=== PATIENT | female | born 1975 | race Hispanic/Latino ===

== ENCOUNTER 2016-11-02 16:09 | Emergency (ER) | payer MEDICARE ==
--- NOTE | 2016-11-02 17:29 | Emergency Department Report ---
Entered by DARREN BARRAGAN, acting as scribe for PAWAN AGUILAR NP. Chief Complaint: Extremity Injury, Lower Stated Complaint: LT LEG/KNEE/ANKLE PAIN - HPI History of Present Illness: 41 y/o female, nontoxic, well developed, NAD, c/o left lower extremity swelling for the past week. Associated numbness and tingling of the area but denies subjective calf pain, fever, chills, CP, SOB, CARRANZA, dizziness, recent travel or long car rides. Patient states she twisted her left ankle while getting out of her car and fell on her left knee. - Exam Vital Signs: Vital Signs 11/02/16 16:57 Temperature 98 F Pulse Rate 71 Respiratory 18 Rate Blood Pressure 125/75 O2 Sat by Pulse 100 Oximetry Physical Exam: GENERAL: The patient is a well-developed, well-nourished male in no apparent distress. Patient is alert and oriented x3. EXTREMITIES: Without any cyanosis, clubbing, rash, lesions or edema. Peripheral pulses intact. Capillary refill less than 2 seconds. No warmth to touch. Patient denies subject calf pain but on Ksenia's sign she is positive for calf pain. Swelling to left LE. MSE screening note: Focused history and physical exam performed. Due to findings the following was ordered: BMP, CBC, HCG Qualitative, PTT, Serum test, PT, UA, Doppler ultrasound to left lower extremity, X-ray of ankle, X- ray of left knee ED Disposition for MSE Condition: Stable This documentation as recorded by the scribe,DARREN BARRAGAN,accurately reflects the service I personally performed and the decisions made by me,PAWAN AGUILAR, JJ.
[2016-11-02 17:46] LABS: Hematocrit 40.9 % (30.3-42.9); Hemoglobin 13.6 gm/dl (10.1-14.3); Mean Corpuscular HGB Conc 33 % (30-34); Mean Corpuscular Hemoglobin 32 pg (28-32); Mean Corpuscular Volume 96 fl (79-97); Platelet Count 230 K/mm3 (140-440); Red Blood Count 4.27 M/mm3 (3.65-5.03)
[2016-11-02 17:54] LABS: INR 1.01 (0.87-1.13); Partial Thromboplastin Time 24.7 Sec. (24.2-36.6)
[2016-11-02 17:58] LABS: Anion Gap 17 mmol/L; BUN/Creatinine Ratio 22.85; Blood Urea Nitrogen 16 mg/dL (7-17); Calcium 9.8 mg/dL (8.4-10.2); Carbon Dioxide 24 mmol/L (22-30); Chloride 100.6 mmol/L (98-107); Glucose 95 mg/dL (65-100); Sodium 138 mmol/L (137-145)
--- NOTE | 2016-11-03 07:41 | XRay Report ---
LEFT KNEE, 3 views: History: Left knee pain and swelling. The bony architecture is intact without evidence of fracture or dislocation. No significant soft tissue abnormality is seen. IMPRESSION: Left knee within normal limits.
--- NOTE | 2016-11-03 07:41 | XRay Report ---
LEFT ANKLE, 3 views: History: Left ankle pain and swelling. Bone mineralization is normal. No acute osseous abnormality or joint pathology is identified. The soft tissues are unremarkable. IMPRESSION: Normal study.
[2016-11-03 08:43] VITALS: BP 120/52
--- NOTE | 2016-11-03 09:42 | Emergency Department Report ---
ED Extremity Problem HPI - General Chief complaint: Extremity Injury, Lower Stated complaint: LT LEG/KNEE/ANKLE PAIN Time Seen by Provider: 11/03/16 09:04 Source: patient Mode of arrival: Ambulatory Limitations: No Limitations - History of Present Illness Initial comments: 41-year-old female presents to the emergency department complaining of left leg swelling and pain for the past one week. Patient states that she tripped and fell 1 week ago. She is unsure what she hit her leg on. Since that time she has been having swelling and pain to the left knee and left ankle. Pain is worse with weightbearing and ambulation. She has not taken any medication for this. There are no other complaints. MD Complaint: extremity pain, extremity swelling -: Gradual, week(s) (1) Location: left, lower extremity History of Same: No -: Yes myalgia, Yes arthralgia Radiation: none Severity scale (0 -10): 4 Quality: aching Consistency: intermittent Improves with: nothing Worsens with: weight bearing, walking Associated Symptoms: denies other symptoms - Related Data Previous Rx's Medication Instructions Recorded Last Taken Type Diclofenac Sodium 75 mg PO BID PRN #20 tablet. 11/03/16 Unknown Rx Allergies Allergy/AdvReac Type Severity Reaction Status Date / Time codeine AdvReac Vomiting Verified 07/03/15 14:35 ED Review of Systems ROS: Stated complaint: LT LEG/KNEE/ANKLE PAIN Other details as noted in HPI Comment: All other systems reviewed and negative Musculoskeletal: as per HPI, arthralgia, myalgia ED Past Medical Hx - Past Medical History Previous Medical History?: Yes Hx Psychiatric Treatment: Yes (PTSD; BIPOLAR; DEPRESSION) Hx Asthma: Yes - Surgical History Past Surgical History?: Yes Hx Appendectomy: Yes Additional Surgical History: RIGHT KNEE SURGERY. "STRETCHED ESOPHAGUS". RIGHT OVARY REMOVED - Family History Family history: no significant - Social History Smoking Status: Never Smoker Substance Use Type: None - Medications Home Medications: Home Medications Medication Instructions Recorded Confirmed Last Taken Type Diclofenac Sodium 75 mg PO BID PRN #20 tablet. 11/03/16 Unknown Rx ED Physical Exam - General Limitations: No Limitations General appearance: alert, in no apparent distress - Head Head exam: Present: atraumatic, normocephalic - Eye Eye exam: Present: normal appearance, PERRL, EOMI - ENT ENT exam: Present: normal exam, normal orophraynx, mucous membranes moist - Neck Neck exam: Present: normal inspection, full ROM. Absent: tenderness - Respiratory Respiratory exam: Present: normal lung sounds bilaterally. Absent: respiratory distress - Cardiovascular Cardiovascular Exam: Present: regular rate, normal rhythm, normal heart sounds - GI/Abdominal GI/Abdominal exam: Present: soft, normal bowel sounds. Absent: distended, tenderness - Extremities Exam Extremities exam: Present: normal inspection, full ROM, tenderness (mild tenderness to palpation over the right patella. Mild tenderness to palpation of the right medial and lateral malleolus. No deformity noted.) - Back Exam Back exam: Present: normal inspection, full ROM. Absent: tenderness - Neurological Exam Neurological exam: Present: alert, oriented X3. Absent: motor sensory deficit ED Course Vital Signs 11/02/16 11/03/16 11/03/16 16:57 05:14 08:41 Temperature 98 F 98.2 F 98.7 F Pulse Rate 71 76 67 Respiratory 18 14 20 Rate Blood Pressure 125/75 126/74 Blood Pressure 120/52 [Right] O2 Sat by Pulse 100 100 100 Oximetry ED Medical Decision Making - Lab Data Result diagrams: 11/02/16 17:26 11/02/16 17:26 - Radiology Data Radiology results: report reviewed X-rays of the left knee and left ankle reveal no acute injuries. Doppler ultrasound of the left lower extremity reveals no evidence of deep venous thrombosis. - Medical Decision Making Lab and imaging results reviewed and discussed with the patient. Patient will be discharged home at this time. - Differential Diagnosis contusion, strain, fracture, DVT Critical care attestation.: If time is entered above; I have spent that time in minutes in the direct care of this critically ill patient, excluding procedure time. ED Disposition Clinical Impression: Left ankle strain Qualifiers: Encounter type: initial encounter Qualified Code(s): S96.912A - Strain of unspecified muscle and tendon at ankle and foot level, left foot, initial encounter Contusion of left knee Qualifiers: Encounter type: initial encounter Qualified Code(s): S80.02XA - Contusion of left knee, initial encounter Disposition: DISCHARGED TO HOME OR SELFCARE Is pt being admited?: No Condition: Stable Instructions: Ankle Sprain (ED), Contusion in Adults (ED) Prescriptions: Diclofenac Sodium 75 mg PO BID PRN #20 tablet.dr DURAN Reason: Pain Referrals: PRIMARY CARE, [Primary Care Provider] - 3-5 Days Time of Disposition: 09:36
--- NOTE | 2016-11-04 08:25 | Vascular Lab Report ---
Left Lower Extremity Venous Duplex Study: Reason for Exam: Pain of the left lower extremity. Comments on the Right: A limited duplex study was done of the proximal veins of the right lower extremity. All veins visualized are freely compressible without evidence of internal echogenicity. Flow is spontaneous and phasic throughout. No evidence of acute or chronic thrombus is seen in any of the vessels visualized. Comments on the Left: All veins visualized are freely compressible without evidence of internal echogenicity. Flow is spontaneous and phasic throughout. No evidence of acute or chronic thrombus is seen in any of the vessels visualized. Impression: No evidence of acute or chronic deep venous thrombosis in the left lower extremity.
== END 2016-11-03 09:42 | disposition home or self-care (01) ==
LOC: ED 16:09
DX: S96.912A Strain of unspecified muscle and tendon at ankle and foot level, left foot, initial encounter (principal); S80.02XA Contusion of left knee, initial encounter; F31.9 Bipolar disorder, unspecified; F32.9 Major depressive disorder, single episode, unspecified; J45.909 Unspecified asthma, uncomplicated; W01.0XXA Fall on same level from slipping, tripping and stumbling without subsequent striking against object, initial encounter; Y93.9 Activity, unspecified; Y92.9 Unspecified place or not applicable; Y99.9 Unspecified external cause status
CPT/HCPCS: 36415; 80048; 84703; 85027; 85610; 85730; 99284

== ENCOUNTER 2017-03-07 20:07 | Emergency (ER) | payer MEDICARE ==
--- NOTE | 2017-03-08 01:42 | Emergency Department Report ---
ED General Adult HPI - General Chief complaint: Skin/Abscess/Foreign Body Stated complaint: TOE PAIN Source: patient Mode of arrival: Ambulatory Limitations: No Limitations - History of Present Illness Initial comments: This is a 42-year-old female nontoxic, well nourished in appearance, no acute signs of distress presents to the ED complaining of bilateral big toes discoloration with discomfort. He stated toes hurt because they're long but denies any trauma to the region. Patient stated she had similar symptoms and was diagnosed with fungus and received topical fungal cream that has resolved. Patient denies any numbness or tingling. Denies chest pain, shortness of breath , numbness, tingling, fever, chills, chest pain and shortness of breath. Patient states allergies to codeine. Past medical history includes asthma. MD Complaint: Onychomycosis -: Gradual, week(s) (2) Radiation: non-radiation Severity scale (0 -10): 5 Quality: aching Consistency: constant Improves with: none Worsens with: none Associated Symptoms: denies other symptoms. denies: confusion, cough, diaphoresis, fever/chills, headaches, loss of appetite, malaise, nausea/vomiting , rash, seizure, shortness of breath, syncope, weakness Treatments Prior to Arrival: none - Related Data Previous Rx's Medication Instructions Recorded Last Taken Type Diclofenac Sodium 75 mg PO BID PRN #20 tablet. 11/03/16 Unknown Rx Efinaconazole [Jublia] 8 ml TP DAILY #1 gui.w.appl 03/08/17 Unknown Rx Allergies Allergy/AdvReac Type Severity Reaction Status Date / Time codeine AdvReac Vomiting Verified 07/03/15 14:35 ED Review of Systems ROS: Stated complaint: TOE PAIN Other details as noted in HPI Constitutional: denies: chills, fever Eyes: denies: eye pain, eye discharge, vision change ENT: denies: ear pain, throat pain Respiratory: denies: cough, shortness of breath, wheezing Cardiovascular: denies: chest pain, palpitations Endocrine: no symptoms reported Gastrointestinal: denies: abdominal pain, nausea, diarrhea Genitourinary: denies: urgency, dysuria, discharge Musculoskeletal: denies: back pain, joint swelling, arthralgia Skin: denies: rash, lesions Neurological: denies: headache, weakness, paresthesias Psychiatric: denies: anxiety, depression Hematological/Lymphatic: denies: easy bleeding, easy bruising ED Past Medical Hx - Past Medical History Previous Medical History?: Yes Hx Psychiatric Treatment: Yes (PTSD; BIPOLAR; DEPRESSION) Hx Asthma: Yes - Surgical History Hx Appendectomy: Yes Additional Surgical History: RIGHT KNEE SURGERY. "STRETCHED ESOPHAGUS". RIGHT OVARY REMOVED - Social History Smoking Status: Never Smoker - Medications Home Medications: Home Medications Medication Instructions Recorded Confirmed Last Taken Type Diclofenac Sodium 75 mg PO BID PRN #20 tablet. 11/03/16 Unknown Rx Efinaconazole [Jublia] 8 ml TP DAILY #1 gui.w.appl 03/08/17 Unknown Rx ED Physical Exam - General Limitations: No Limitations General appearance: alert, in no apparent distress - Head Head exam: Present: atraumatic, normocephalic, normal inspection - Eye Eye exam: Present: normal appearance, PERRL, EOMI. Absent: scleral icterus, conjunctival injection, nystagmus, periorbital swelling, periorbital tenderness Pupils: Present: normal accommodation - ENT ENT exam: Present: normal exam, normal orophraynx, mucous membranes moist, TM's normal bilaterally, normal external ear exam - Neck Neck exam: Present: normal inspection, full ROM. Absent: tenderness, meningismus, lymphadenopathy, thyromegaly - Respiratory Respiratory exam: Present: normal lung sounds bilaterally. Absent: respiratory distress, wheezes, rales, rhonchi, stridor, chest wall tenderness, accessory muscle use, decreased breath sounds, prolonged expiratory - Cardiovascular Cardiovascular Exam: Present: regular rate, normal rhythm, normal heart sounds. Absent: systolic murmur, diastolic murmur, rubs, gallop - GI/Abdominal GI/Abdominal exam: Present: soft, normal bowel sounds. Absent: distended, tenderness, guarding, rebound, rigid, diminished bowel sounds - Rectal Rectal exam: Present: deferred - Extremities Exam Extremities exam: Present: normal inspection, full ROM, normal capillary refill , other (bilatearl big toes are yellow colored. No signs of abscess or swelling. ). Absent: tenderness, pedal edema, joint swelling, calf tenderness - Back Exam Back exam: Present: normal inspection, full ROM. Absent: tenderness, CVA tenderness (R), CVA tenderness (L), muscle spasm, paraspinal tenderness, vertebral tenderness, rash noted - Neurological Exam Neurological exam: Present: alert, oriented X3, CN II-XII intact, normal gait, reflexes normal - Psychiatric Psychiatric exam: Present: normal affect, normal mood - Skin Skin exam: Present: warm, dry, intact, normal color. Absent: rash ED Course Vital Signs 03/07/17 21:53 Temperature 97.4 F L Pulse Rate 68 Respiratory 20 Rate Blood Pressure 120/56 O2 Sat by Pulse 97 Oximetry - Reevaluation(s) Reevaluation #1: 03/08/17 01:42 Patient is speaking in full sentences with no signs of distress noted. Critical care attestation.: If time is entered above; I have spent that time in minutes in the direct care of this critically ill patient, excluding procedure time. ED Disposition Clinical Impression: Onychomycosis Disposition: DC- TO HOME OR SELFCARE Is pt being admited?: No Does the pt Need Aspirin: No Condition: Stable Additional Instructions: Follow-up with a primary care doctor/music internship in 3-5 days or if symptoms worsen and continue return to the emergency room as soon as possible. Prescriptions: Efinaconazole [Jublia] 8 ml TP DAILY #1 gui.w.appl Referrals: PRIMARY CARE, [Primary Care Provider] - 3-5 Days OLIVIA HALL MD [Staff Physician] - 3-5 Days [facility] [Outside] - 3-5 Days [facility] [Outside] - 3-5 Days Forms: Work/School Release Form(ED)
[2017-03-08 05:04] VITALS: BP 114/55
== END 2017-03-08 02:20 | disposition home or self-care (01) ==
LOC: ED 20:07
DX: B35.1 Tinea unguium (principal); J45.909 Unspecified asthma, uncomplicated; F31.9 Bipolar disorder, unspecified; Z88.5 Allergy status to narcotic agent
CPT/HCPCS: 99282

== ENCOUNTER 2017-03-15 10:16 | Emergency (ER) | payer MEDICARE ==
--- NOTE | 2017-03-15 10:24 | Emergency Department Report ---
Stated Complaint: I AM IN MY LEG ANKLE Time Seen by Provider: 03/15/17 10:20 - HPI History of Present Illness: Pt states she was going up stairs in apartment when she tripped. PT States she landed on her L knee and twisted her L ankle - ROS Review of Systems: - loc + ankle edema + gait change - Exam Physical Exam: PT is ambulatory while in triage PT c/o lateral left ankle pain, mild edema noted MSE screening note: Focused history and physical exam performed. Due to findings the following was ordered: xr ED Disposition for MSE Condition: Stable
[2017-03-15 10:25] VITALS: BP 107/75
--- NOTE | 2017-03-15 11:05 | XRay Report ---
Left ankle: Pain, fall. There is mild swelling around the ankle. There is no effusion, fracture, or displacement. The bones are well-mineralized. Impression: Nonspecific swelling. LEFT KNEE: Trauma, pain. The bony architecture is intact without evidence of fracture or dislocation. No significant soft tissue abnormality is seen. IMPRESSION: Normal left knee.
--- NOTE | 2017-03-15 13:46 | Emergency Department Report ---
ED Lower Extremity HPI - General Chief Complaint: Fall Stated Complaint: I AM IN MY LEG ANKLE Time Seen by Provider: 03/15/17 10:20 Source: patient Mode of arrival: Ambulatory Limitations: No Limitations - History of Present Illness Initial Comments: 42-year-old female past medical history bipolar, depression states that she slipped while walking up steps yesterday in her home. Denies losing any consciousness denies rolling down steps. States that she inverted slightly on her left ankle and fell onto her left knee. States she is able to walk but it is very uncomfortable particularly in her left lateral ankle. Patient denies any lacerations denies losing consciousness is fully lucid awake alert and oriented 3 not in acute distress. Denies chest pain palpitations shortness of breath or abdominal pain. Is calm and sitting on examination bed comfortably. States she has someone to pick her up. States she is allergic to narcotics. MD Complaint: ankle injury (left ), foot injury (left ) Onset/Timin -: days(s) Injury: Ankle: Left, Foot: Left Type of Injury: inversion Place: home Severity: moderate Severity scale (0 -10): 5 Improves With: immobilization Worsens With: weight bearing, movement Context: fall Associated Symptoms: able to partially bear weight (left ankle pain w/ walking) - Related Data Previous Rx's Medication Instructions Recorded Last Taken Type Diclofenac Sodium 75 mg PO BID PRN #20 tablet. 11/03/16 Unknown Rx Efinaconazole [Jublia] 8 ml TP DAILY #1 gui.w.appl 03/08/17 Unknown Rx Naproxen [Naprosyn TAB] 500 mg PO BID PRN #25 tablet 03/15/17 Unknown Rx Allergies Allergy/AdvReac Type Severity Reaction Status Date / Time codeine AdvReac Vomiting Verified 07/03/15 14:35 ED Review of Systems ROS: Stated complaint: I AM IN MY LEG ANKLE Other details as noted in HPI Constitutional: denies: chills, fever Eyes: denies: eye pain, eye discharge, vision change ENT: denies: ear pain, throat pain Respiratory: denies: cough, shortness of breath, wheezing Cardiovascular: denies: chest pain, palpitations Endocrine: no symptoms reported Gastrointestinal: denies: abdominal pain, nausea, diarrhea Genitourinary: denies: urgency, dysuria, discharge Musculoskeletal: as per HPI, arthralgia. denies: back pain, joint swelling Skin: denies: rash, lesions Neurological: denies: headache, weakness, paresthesias Psychiatric: denies: anxiety, depression Hematological/Lymphatic: denies: easy bleeding, easy bruising ED Past Medical Hx - Past Medical History Previous Medical History?: Yes Hx Psychiatric Treatment: Yes (PTSD; BIPOLAR; DEPRESSION) Hx Asthma: Yes - Surgical History Past Surgical History?: Yes Hx Appendectomy: Yes Additional Surgical History: RIGHT KNEE SURGERY. "STRETCHED ESOPHAGUS". RIGHT OVARY REMOVED - Social History Smoking Status: Never Smoker Substance Use Type: Prescribed - Medications Home Medications: Home Medications Medication Instructions Recorded Confirmed Last Taken Type Diclofenac Sodium 75 mg PO BID PRN #20 tablet.dr 11/03/16 Unknown Rx Efinaconazole [Jublia] 8 ml TP DAILY #1 gui.w.appl 03/08/17 Unknown Rx Naproxen [Naprosyn TAB] 500 mg PO BID PRN #25 tablet 03/15/17 Unknown Rx ED Physical Exam - General Limitations: No Limitations General appearance: alert, in no apparent distress - Head Head exam: Present: atraumatic, normocephalic - Eye Eye exam: Present: normal appearance, PERRL, EOMI - ENT ENT exam: Present: mucous membranes moist - Neck Neck exam: Present: normal inspection, full ROM - Respiratory Respiratory exam: Present: normal lung sounds bilaterally. Absent: respiratory distress - Cardiovascular Cardiovascular Exam: Present: regular rate, normal rhythm. Absent: systolic murmur, diastolic murmur, rubs, gallop - GI/Abdominal GI/Abdominal exam: Present: soft, normal bowel sounds - Extremities Exam Extremities exam: Present: normal inspection - Expanded Lower Extremity Exam Left Upper Leg exam: Present: normal inspection, full ROM Knee exam: Present: normal inspection, full ROM Lower Leg exam: Present: normal inspection, full ROM Ankle exam: Present: tenderness, swelling Foot/Toe exam: Present: normal inspection, full ROM Neuro vascular tendon exam: Present: no vascular compromise (distal pulses intact DP and PT pulses) 1 - left ankel pain at lateral malleolus - Back Exam Back exam: Present: normal inspection - Neurological Exam Neurological exam: Present: alert, oriented X3 - Psychiatric Psychiatric exam: Present: normal affect, normal mood - Skin Skin exam: Present: warm, dry, intact, normal color. Absent: rash ED Course Vital Signs 03/15/17 10:21 Temperature 97.6 F Pulse Rate 66 Respiratory 18 Rate Blood Pressure 107/75 O2 Sat by Pulse 96 Oximetry ED Lower Extremity MDM - Medical Decision Making A/P: Left ankle pain, left knee pain, left ankle sprain, left knee sprain 1-x-ray show no fractures 2-crutches, nonweightbearing for now, Jerry wrap, orthopedic shoe 3-naproxen when necessary 4- follow up with primary doctor and orthopedics, distal extremity is neurovascularly intact distal posterior tibial dorsalis pedis and popliteal pulses intact distal sensation is intact no lacerations and no fractures patient sustained no head injury and denies any neck pain or injury to any other body part is fully lucid awake alert and oriented 3 Critical care attestation.: If time is entered above; I have spent that time in minutes in the direct care of this critically ill patient, excluding procedure time. ED Disposition Clinical Impression: Left knee sprain Qualifiers: Encounter type: initial encounter Involved ligament of knee: other ligament Qualified Code(s): S83.8X2A - Sprain of other specified parts of left knee, initial encounter Left ankle sprain Qualifiers: Encounter type: initial encounter Involved ligament of ankle: tibiofibular ligament Qualified Code(s): S93.432A - Sprain of tibiofibular ligament of left ankle, initial encounter Disposition: TO HOME OR SELFCARE Is pt being admited?: No Does the pt Need Aspirin: No Condition: Stable Instructions: Ankle Sprain (ED), Ankle Stirrup Splint (ED), Crutch Instructions (ED), RICE Therapy (ED) Prescriptions: Naproxen [Naprosyn TAB] 500 mg PO BID PRN #25 tablet PRN Reason: Pain Referrals: [facility] [Provider Group] - 3-5 Days THIAGO FERGUSON MD [Staff Physician] - 3-5 Days Forms: Work/School Release Form(ED) Time of Disposition: 13:46
[2017-03-15] MEDS ORDERED: MOTRIN PO ONE (13:47)
== END 2017-03-15 13:54 | disposition home or self-care (01) ==
LOC: ED 10:16
DX: S83.8X2A Sprain of other specified parts of left knee, initial encounter (principal); S93.432A Sprain of tibiofibular ligament of left ankle, initial encounter; W01.0XXA Fall on same level from slipping, tripping and stumbling without subsequent striking against object, initial encounter; Y93.9 Activity, unspecified; Y92.89 Other specified places as the place of occurrence of the external cause; Y99.9 Unspecified external cause status

== ENCOUNTER 2017-03-25 12:05 | Emergency (ER) | payer MEDICARE ==
[2017-03-26] MEDS ORDERED: FIORICET PO ONE (03:36)
--- NOTE | 2017-03-26 03:41 | Emergency Department Report ---
ED General Adult HPI - General Chief complaint: Syncope Stated complaint: FAINTING EPISODE Time Seen by Provider: 03/26/17 03:33 Source: patient, EMS Mode of arrival: Stretcher Limitations: No Limitations - History of Present Illness Initial comments: 42-year-old female past medical history PTSD and bipolar who presents status post syncope patient was very hot and walking outside in her crutches she felt lightheaded and sat down. She did not lose consciousness she felt better after drinking some water. However since she was at [facility] she was sent to the ER for evaluation. Patient states that she stumbled to the ground and then she was having some ankle pain in her left ankle - Related Data Previous Rx's Medication Instructions Recorded Last Taken Type Diclofenac Sodium 75 mg PO BID PRN #20 tablet. 11/03/16 Unknown Rx Efinaconazole [Jublia] 8 ml TP DAILY #1 gui.w.appl 03/08/17 Unknown Rx Naproxen [Naprosyn TAB] 500 mg PO BID PRN #25 tablet 03/15/17 Unknown Rx Butalb/Acetamin/Caff 50-325-40 1 tab PO Q6HR PRN #17 tab 03/26/17 Unknown Rx [Fioricet] Allergies Allergy/AdvReac Type Severity Reaction Status Date / Time codeine AdvReac Vomiting Verified 07/03/15 14:35 ED Review of Systems ROS: Stated complaint: FAINTING EPISODE Other details as noted in HPI Constitutional: denies: chills, fever Eyes: denies: eye pain, eye discharge, vision change ENT: denies: ear pain, throat pain Respiratory: denies: cough, shortness of breath, wheezing Cardiovascular: syncope Endocrine: no symptoms reported Gastrointestinal: denies: abdominal pain, nausea, diarrhea Genitourinary: denies: urgency, dysuria, discharge Musculoskeletal: other (ankle pain). denies: back pain, joint swelling, arthralgia Skin: denies: rash, lesions Neurological: denies: headache, weakness, paresthesias Psychiatric: denies: anxiety, depression Hematological/Lymphatic: denies: easy bleeding, easy bruising ED Past Medical Hx - Past Medical History Hx Psychiatric Treatment: Yes (PTSD; BIPOLAR; DEPRESSION) Hx Asthma: Yes - Surgical History Hx Appendectomy: Yes Additional Surgical History: RIGHT KNEE SURGERY. "STRETCHED ESOPHAGUS". RIGHT OVARY REMOVED - Social History Smoking Status: Never Smoker Substance Use Type: None - Medications Home Medications: Home Medications Medication Instructions Recorded Confirmed Last Taken Type Diclofenac Sodium 75 mg PO BID PRN #20 tablet. 11/03/16 Unknown Rx Efinaconazole [Jublia] 8 ml TP DAILY #1 gui.w.appl 03/08/17 Unknown Rx Naproxen [Naprosyn TAB] 500 mg PO BID PRN #25 tablet 03/15/17 Unknown Rx Butalb/Acetamin/Caff 50-325-40 1 tab PO Q6HR PRN #17 tab 03/26/17 Unknown Rx [Fioricet] ED Physical Exam - General Limitations: No Limitations General appearance: alert, in no apparent distress - Head Head exam: Present: atraumatic, normocephalic - Eye Eye exam: Present: normal appearance - ENT ENT exam: Present: mucous membranes moist - Neck Neck exam: Present: normal inspection - Respiratory Respiratory exam: Present: normal lung sounds bilaterally. Absent: respiratory distress - Cardiovascular Cardiovascular Exam: Present: regular rate, normal rhythm. Absent: systolic murmur, diastolic murmur, rubs, gallop - GI/Abdominal GI/Abdominal exam: Present: soft, normal bowel sounds - Extremities Exam Extremities exam: Present: tenderness (left ankle tenderness ) - Back Exam Back exam: Present: normal inspection - Neurological Exam Neurological exam: Present: alert, oriented X3 - Psychiatric Psychiatric exam: Present: normal affect, normal mood - Skin Skin exam: Present: warm, dry, intact, normal color. Absent: rash ED Course Vital Signs 03/25/17 03/26/17 03/26/17 14:32 01:19 03:41 Temperature 97.8 F 97.9 F 97.5 F L Pulse Rate 62 54 L 58 L Respiratory 16 18 Rate Blood Pressure 113/62 127/65 Blood Pressure 127/68 [Left] O2 Sat by Pulse 98 100 99 Oximetry ED Medical Decision Making - EKG Data -: EKG Interpreted by Me - EKG Data 03/26/17 04:48 EKG shows normal sinus rhythm borderline MT interval no T-wave inversion or significant ST segment elevation. - Radiology Data Radiology results: image reviewed X-ray ankle: Shows no acute osseous injury - Medical Decision Making Chief medical diagnosis: Syncope secondary to dehydration Differential medical diagnosis: Arrhythmia, vasovagal, tension headache I'll get EKG and I will get ankle xray and oral analgesic pain medication . X-ray shows no acute fracture patient does not need lab work and is feeling better after all oral analgesic pain medication. I will send the patient home. Critical care attestation.: If time is entered above; I have spent that time in minutes in the direct care of this critically ill patient, excluding procedure time. ED Disposition Clinical Impression: Vasovagal syncope, Tension headache Disposition: TO HOME OR SELFCARE Is pt being admited?: No Does the pt Need Aspirin: No Condition: Stable Instructions: Syncope (ED) Prescriptions: Butalb/Acetamin/Caff 50-325-40 [Fioricet] 1 tab PO Q6HR PRN #17 tab PRN Reason: Headache Referrals: PRIMARY CARE, [Primary Care Provider] - 3-5 Days
[2017-03-26] MEDS ORDERED: NAPROSYN PO ONE (04:00)
[2017-03-26 05:31] VITALS: BP 132/73
--- NOTE | 2017-03-26 09:41 | XRay Report ---
XRAY LEFT ANKLE 2 VIEWS: 03/25/17 12:05:00 CLINICAL: Fall and twisted ankle. Pain. COMPARISON: 03/15/17 FINDINGS: The ankle mortise is intact. No fracture or dislocation. Mild soft tissue swelling which is slightly greater over the medial malleolus. No foreign body or soft tissue air. IMPRESSION: Soft tissue swelling without significant change compared to the prior exam.
== END 2017-03-26 05:29 | disposition home or self-care (01) ==
LOC: ED 12:05
DX: R55 Syncope and collapse (principal); G44.209 Tension-type headache, unspecified, not intractable; F32.9 Major depressive disorder, single episode, unspecified; F31.9 Bipolar disorder, unspecified; J45.909 Unspecified asthma, uncomplicated; Z88.5 Allergy status to narcotic agent
CPT/HCPCS: 93005; 93010

== ENCOUNTER 2017-03-29 09:15 | Emergency (ER) | payer MEDICARE ==
--- NOTE | 2017-03-29 11:14 | Emergency Department Report ---
Upper Extremity - HPI Chief Complaint: Extremity Injury, Upper Stated Complaint: RIGHT ARM PAIN Time Seen by Provider: 03/29/17 10:36 Upper Extremity: Right Shoulder (pain after fall 4 days ago), Right Arm (pain), Right Forearm (pain) Occurred When: 4 Days Mechanism: Fall Severity: moderate (6 out of 10) Symptoms: Yes Pain with Movement (patient here reports fall with pain to shoulder radiated down her forearm), Yes Limited Range of Movement (right shoulder), No Deformity, No Numbness, No Weakness, No Swelling, No Bruising/ Ecchymosis, No Laceration or Abrasion Other History: She was here on 03/15/2017,03/26/2017 after she said that she passed out and fell. She is now complaining of right shoulder pain which she states she did not complain of when she was here and the pain is getting worse and she has limited range of motion to her right shoulderand pain is radiating down her right arm and forearm. Pt had x-ray of knee and ankle previously which were negative findings. ED Review of Systems ROS: Stated complaint: RIGHT ARM PAIN Other details as noted in HPI Comment: All other systems reviewed and negative Constitutional: no symptoms reported Respiratory: no symptoms reported Cardiovascular: denies: chest pain, palpitations, edema, syncope Gastrointestinal: denies: abdominal pain, nausea, vomiting, hematochezia Musculoskeletal: arthralgia. denies: back pain, joint swelling, myalgia Skin: denies: rash Neurological: denies: headache, weakness, numbness, paresthesias, confusion, abnormal gait, vertigo ED Past Medical Hx - Past Medical History Previous Medical History?: Yes Hx Psychiatric Treatment: Yes (PTSD; BIPOLAR; DEPRESSION) Hx Asthma: Yes Additional medical history: Chronic pain - Surgical History Past Surgical History?: Yes Hx Appendectomy: Yes Additional Surgical History: RIGHT KNEE SURGERY. "STRETCHED ESOPHAGUS". RIGHT OVARY REMOVED - Family History Family history: no significant - Social History Smoking Status: Never Smoker Substance Use Type: None - Medications Home Medications: Home Medications Medication Instructions Recorded Confirmed Last Taken Type Diclofenac Sodium 75 mg PO BID PRN #20 tablet. 11/03/16 Unknown Rx Efinaconazole [Jublia] 8 ml TP DAILY #1 gui.w.appl 03/08/17 Unknown Rx Butalb/Acetamin/Caff 50-325-40 1 tab PO Q6HR PRN #17 tab 03/26/17 Unknown Rx [Fioricet] Naproxen [Naprosyn TAB] 500 mg PO BID PRN #12 tablet 03/29/17 Unknown Rx Upper Extremity Exam - Exam General: Vital signs noted. No distress. Alert and acting appropriately. This is a 42-year-old female well-nourished well-developed in no acute distress Head and Torso: No HEENT Abnormality, No Neck Tenderness, No Chest/Lungs Abnormality, No Abdominal Tenderness, No Back Tenderness Shoulder Exam: Yes Normal Range of Motion in Shoulder (A showed full range of motion to her right shoulder but she said is speaking full with movement.), No Shoulder Tenderness, No Clavicle Tenderness, No Shoulder Deformity, No AC Joint Tenderness Arm Exam: No Arm/Humerus Tenderness, No Arm Deformity Elbow: Yes Normal Range of Motion in Elbow, No Elbow Tenderness, No Elbow Deformity Forearm: No Forearm Tenderness, No Forearm Deformity, No Pain with Pronation, No Pain with Supination Wrist: Yes Normal ROM in Wrist, No Wrist Tenderness, No Wrist Deformity, No Snuffbox Tenderness, No Pain with Axial Thumb Compression Hand: Yes Normal ROM in Digit(s), No Hand Tenderness, No Hand Deformity, No Digit Tenderness, No Digit(s) Deformity, No Tendon Dysfunction CMS Exam: Yes Normal Distal Pulses, Yes Normal Capillary Refill, Yes Normal Distal Sensation, No Broken Skin ED Course Vital Signs 03/29/17 09:24 Temperature 98.1 F Pulse Rate 67 Respiratory 16 Rate Blood Pressure 108/74 O2 Sat by Pulse 98 Oximetry - Reevaluation(s) Reevaluation #1: 03/29/17 13:14 Patient was given Toradol 60 mg IM in emergency room for pain. ED Medical Decision Making - Radiology Data Radiology results: report reviewed X-ray of right shoulder to include humerus reveal no acute bony abnormalities or soft tissue swelling Story of right forearm to include wrist and elbow revealed no abnormality or soft tissue swelling. - Medical Decision Making ED course: Pt here complaining of right shoulder pain that radiated down her arm and forearm. She's been here 2 times prior for similar incident involving her ankle and her knee. Patient has a history of chronic pain. She has has a history of bipolar disorder, depression and PTSD. [facility] Discussed with her x-ray results and I told her that she will need to follow up with orthopedic for chronic pain in her joints. Patient was given Toradol 60 mg IM for pain and emergency room. She discharged home with prescription for naproxen and to follow-up with orthopedic doctor now and then in 2-3 days and I also gave her a primary care doctor Dr. Jackson to follow up for other medical problems. She was undescended discharge instruction and discharged home in stable condition. Critical care attestation.: If time is entered above; I have spent that time in minutes in the direct care of this critically ill patient, excluding procedure time. ED Disposition Clinical Impression: Arthralgia of multiple sites, Radiculopathy affecting upper extremity Disposition: - TO HOME OR SELFCARE Is pt being admited?: No Does the pt Need Aspirin: No Condition: Stable Instructions: Arthralgia (ED), Chronic Pain (ED) Additional Instructions: Please follow up with orthopedic doctor as instructed I assigned Dr.Roger Miguel as your primary care physician please call and schedule a visit for physical exam. He can take naproxen as needed for pain You may have rotator cuff injury so please follow up with orthopedic doctor because there is a possibility that he could need MRI. Prescriptions: Naproxen [Naprosyn TAB] 500 mg PO BID PRN #12 tablet PRN Reason: Pain Referrals: LUIZA MIGUEL MD [Staff Physician] - 04/04/17 THIAGO FERGUSON MD [Staff Physician] - 2-3 Days Forms: Work/School Release Form(ED)
[2017-03-29] MEDS: TORADOL IM ONE (11:21)
--- NOTE | 2017-03-29 11:51 | XRay Report ---
RIGHT FOREARM: History: Pain after fall. AP and lateral views of the forearm demonstrate normal mineralization and contours for this patient's age. No destructive changes are noted and the adjacent soft tissues are normal. IMPRESSION: Normal right forearm.
--- NOTE | 2017-03-29 11:51 | XRay Report ---
RIGHT SHOULDER: History: Pain after fall. Routine views demonstrate normal bony and soft tissue structures with normal joint alignment of the shoulder. IMPRESSION: Normal study.
[2017-03-29 13:32] VITALS: BP 111/63
== END 2017-03-29 13:32 | disposition home or self-care (01) ==
LOC: ED 09:15
DX: M25.511 Pain in right shoulder (principal); M54.10 Radiculopathy, site unspecified; J45.909 Unspecified asthma, uncomplicated; G89.29 Other chronic pain; Z98.890 Other specified postprocedural states
CPT/HCPCS: 73030; 73090; 96372; 99283; J1885

== ENCOUNTER 2017-04-30 10:26 | Emergency (ER) | payer MEDICARE ==
[2017-04-30 10:57] VITALS: BP 114/73
--- NOTE | 2017-04-30 11:30 | XRay Report ---
LEFT ANKLE, 3 views: History: left ankle pain. Bone mineralization is normal. No acute osseous abnormality or joint pathology is identified. The soft tissues are unremarkable. IMPRESSION: Normal study.
--- NOTE | 2017-04-30 12:09 | Emergency Department Report ---
ED Lower Extremity HPI - General Chief Complaint: Extremity Injury, Lower Stated Complaint: LEFT ANKLE PAIN Time Seen by Provider: 04/30/17 11:59 Source: patient Mode of arrival: Ambulatory Limitations: No Limitations - History of Present Illness Initial Comments: Pt reports she twisted her L ankle the other day and it still hurts. Pt noted to be wearing aircast. No numbness. MD Complaint: ankle injury -: Sudden, days(s) (3) Injury: Ankle: Left Type of Injury: inversion Place: street/outdoors Severity: moderate Severity scale (0 -10): 5 Improves With: immobilization Worsens With: weight bearing Context: other Associated Symptoms: swelling, ambulatory. denies: numbness, tingling - Related Data Previous Rx's Medication Instructions Recorded Last Taken Type Efinaconazole [Jublia] 8 ml TP DAILY #1 gui.w.appl 03/08/17 Unknown Rx Butalb/Acetamin/Caff 50-325-40 1 tab PO Q6HR PRN #17 tab 03/26/17 Unknown Rx [Fioricet] Naproxen [Naprosyn TAB] 500 mg PO BID PRN #20 tablet 04/30/17 Unknown Rx Allergies Allergy/AdvReac Type Severity Reaction Status Date / Time codeine AdvReac Intermediate Vomiting Verified 04/30/17 10:48 ED Review of Systems ROS: Stated complaint: LEFT ANKLE PAIN Other details as noted in HPI Comment: All other systems reviewed and negative Constitutional: denies: chills, fever Eyes: denies: eye pain, eye discharge, vision change ENT: denies: ear pain, throat pain Respiratory: denies: cough, shortness of breath, wheezing Cardiovascular: denies: chest pain, palpitations Endocrine: no symptoms reported Gastrointestinal: denies: abdominal pain, nausea, diarrhea Genitourinary: denies: urgency, dysuria, discharge Musculoskeletal: as per HPI, arthralgia. denies: back pain, joint swelling Skin: denies: rash, lesions Neurological: denies: headache, weakness, paresthesias Psychiatric: denies: anxiety, depression Hematological/Lymphatic: denies: easy bleeding, easy bruising ED Past Medical Hx - Past Medical History Previous Medical History?: Yes Hx Psychiatric Treatment: Yes (PTSD; BIPOLAR; DEPRESSION) Hx Asthma: Yes Additional medical history: Chronic pain - Surgical History Past Surgical History?: Yes Hx Appendectomy: Yes Additional Surgical History: RIGHT KNEE SURGERY. "STRETCHED ESOPHAGUS". RIGHT OVARY REMOVED - Social History Smoking Status: Never Smoker Substance Use Type: None - Medications Home Medications: Home Medications Medication Instructions Recorded Confirmed Last Taken Type Efinaconazole [Jublia] 8 ml TP DAILY #1 gui.w.appl 03/08/17 Unknown Rx Butalb/Acetamin/Caff 50-325-40 1 tab PO Q6HR PRN #17 tab 03/26/17 Unknown Rx [Fioricet] Naproxen [Naprosyn TAB] 500 mg PO BID PRN #20 tablet 04/30/17 Unknown Rx ED Physical Exam - General Limitations: No Limitations General appearance: alert, in no apparent distress - Head Head exam: Present: atraumatic, normocephalic - Eye Eye exam: Present: normal appearance - ENT ENT exam: Present: mucous membranes moist - Neck Neck exam: Present: normal inspection - Respiratory Respiratory exam: Present: normal lung sounds bilaterally. Absent: respiratory distress - Cardiovascular Cardiovascular Exam: Present: regular rate, normal rhythm. Absent: systolic murmur, diastolic murmur, rubs, gallop - GI/Abdominal GI/Abdominal exam: Present: soft, normal bowel sounds - Extremities Exam Extremities exam: Present: normal inspection, full ROM, tenderness, normal capillary refill, other (essentially normal exam of the L ankle with CMS intact. L foot, lower leg normal. ). Absent: joint swelling - Back Exam Back exam: Present: normal inspection - Neurological Exam Neurological exam: Present: alert, oriented X3 - Psychiatric Psychiatric exam: Present: normal affect, normal mood - Skin Skin exam: Present: warm, dry, intact, normal color. Absent: rash ED Course Vital Signs 04/30/17 10:48 Temperature 98.3 F Pulse Rate 71 Respiratory 18 Rate Blood Pressure 114/73 O2 Sat by Pulse 97 Oximetry - Reevaluation(s) Reevaluation #1: 04/30/17 12:07 Pt in NAD and stable for d/c. ED Lower Extremity MDM - Radiology Data Radiology results: report reviewed naf - Medical Decision Making Pt with mild sprain. Follow with PCP/ortho and use aircast. - Differential Diagnosis sprain, fx, drug seeking Critical care attestation.: If time is entered above; I have spent that time in minutes in the direct care of this critically ill patient, excluding procedure time. ED Disposition Clinical Impression: Ankle sprain Qualifiers: Encounter type: initial encounter Involved ligament of ankle: unspecified ligament Laterality: left Qualified Code(s): S93.402A - Sprain of unspecified ligament of left ankle, initial encounter Disposition: TO HOME OR SELFCARE Is pt being admited?: No Condition: Good Instructions: Ankle Sprain (ED) Prescriptions: Naproxen [Naprosyn TAB] 500 mg PO BID PRN #20 tablet PRN Reason: Pain Referrals: PRIMARY CAREMD [Primary Care Provider] - 3-5 Days THIAGO FERGUSON MD [Staff Physician] - 3-5 Days Time of Disposition: 12:08
== END 2017-04-30 12:17 | disposition home or self-care (01) ==
LOC: ED 10:26
DX: S93.402A Sprain of unspecified ligament of left ankle, initial encounter (principal); Z88.6 Allergy status to analgesic agent; X58.XXXA Exposure to other specified factors, initial encounter; Y93.89 Activity, other specified; Y92.89 Other specified places as the place of occurrence of the external cause; Y99.8 Other external cause status
CPT/HCPCS: 99284

== ENCOUNTER 2017-07-27 21:50 | Emergency (ER) | payer MEDICARE | END 2017-07-27 22:16 | disposition left against medical advice (07) | LOC: ED 21:50 | DX: H92.09 Otalgia, unspecified ear (principal); Z53.21 Procedure and treatment not carried out due to patient leaving prior to being seen by health care provider ==

== ENCOUNTER 2017-07-30 14:57 | Emergency (ER) | payer MEDICARE ==
[2017-07-30 15:04] VITALS: BP 108/43
[2017-07-30] MEDS ORDERED: MOTRIN PO ONE (15:40)
[2017-07-30] MEDS ORDERED: ULTRAM PO ONE (15:40)
--- NOTE | 2017-07-30 15:40 | Emergency Department Report ---
Blank Doc - Documentation Documentation: Patient is a 42-year-old female who was running yesterday and she tripped in a hole and has injured her left ankle and left knee. Patient has difficulty putting any weight on this leg. Patient's brief physical exam has not is deformity however there is anterior pain in the left knee as well as bilateral ankle pain with swelling. X-rays of be taken of both and patient will be reassessed
--- NOTE | 2017-07-30 16:41 | Emergency Department Report ---
ED Lower Extremity HPI - General Chief Complaint: Extremity Injury, Lower Stated Complaint: FALL Time Seen by Provider: 07/30/17 15:21 Source: patient Mode of arrival: Wheelchair Limitations: No Limitations - History of Present Illness MD Complaint: knee injury, ankle injury -: This afternoon - Related Data Previous Rx's Medication Instructions Recorded Last Taken Type Efinaconazole [Jublia] 8 ml TP DAILY #1 gui.w.appl 03/08/17 Unknown Rx Butalb/Acetamin/Caff 50-325-40 1 tab PO Q6HR PRN #17 tab 03/26/17 Unknown Rx [Fioricet] Naproxen [Naprosyn TAB] 500 mg PO BID PRN #20 tablet 04/30/17 Unknown Rx Ibuprofen [Motrin] 800 mg PO Q8HR PRN #30 tablet 07/30/17 Unknown Rx traMADol [Ultram 50 MG tab] 50 mg PO Q6HR PRN #6 tablet 07/30/17 Unknown Rx Allergies Allergy/AdvReac Type Severity Reaction Status Date / Time codeine AdvReac Intermediate Vomiting Verified 04/30/17 10:48 ED Review of Systems ROS: Stated complaint: FALL Other details as noted in HPI ED Past Medical Hx - Past Medical History Hx Psychiatric Treatment: Yes (PTSD; BIPOLAR; DEPRESSION) Hx Asthma: Yes Additional medical history: Chronic pain - Surgical History Hx Appendectomy: Yes Additional Surgical History: RIGHT KNEE SURGERY. "STRETCHED ESOPHAGUS". RIGHT OVARY REMOVED - Social History Smoking Status: Never Smoker Substance Use Type: None - Medications Home Medications: Home Medications Medication Instructions Recorded Confirmed Last Taken Type Efinaconazole [Jublia] 8 ml TP DAILY #1 gui.w.appl 03/08/17 Unknown Rx Butalb/Acetamin/Caff 50-325-40 1 tab PO Q6HR PRN #17 tab 03/26/17 Unknown Rx [Fioricet] Naproxen [Naprosyn TAB] 500 mg PO BID PRN #20 tablet 04/30/17 Unknown Rx Ibuprofen [Motrin] 800 mg PO Q8HR PRN #30 tablet 07/30/17 Unknown Rx traMADol [Ultram 50 MG tab] 50 mg PO Q6HR PRN #6 tablet 07/30/17 Unknown Rx ED Physical Exam - General Limitations: No Limitations ED Course Vital Signs 07/30/17 15:01 Temperature 97.8 F Pulse Rate 61 Respiratory 20 Rate Blood Pressure 108/43 O2 Sat by Pulse 100 Oximetry ED Lower Extremity MDM - Medical Decision Making A/P: Left knee and left ankle sprain 1-x-rays unremarkable 2-RICE therapy. 3-crutches, left knee immobilizer, left ankle stirrup splint 4-Motrin when necessary Critical care attestation.: If time is entered above; I have spent that time in minutes in the direct care of this critically ill patient, excluding procedure time. ED Disposition Clinical Impression: Left ankle sprain Qualifiers: Encounter type: initial encounter Involved ligament of ankle: tibiofibular ligament Qualified Code(s): S93.432A - Sprain of tibiofibular ligament of left ankle, initial encounter Left knee sprain Qualifiers: Encounter type: initial encounter Involved ligament of knee: other ligament Qualified Code(s): S83.8X2A - Sprain of other specified parts of left knee, initial encounter Disposition: TO HOME OR SELFCARE Is pt being admited?: No Does the pt Need Aspirin: No Condition: Stable Instructions: Ankle Sprain (ED), Knee Sprain (ED), Ankle Stirrup Splint (ED), RICE Therapy (ED) Prescriptions: Ibuprofen [Motrin] 800 mg PO Q8HR PRN #30 tablet PRN Reason: Pain traMADol [Ultram 50 MG tab] 50 mg PO Q6HR PRN #6 tablet PRN Reason: Pain Referrals: THIAGO FERGUSON MD [Staff Physician] - 3-5 Days [facility] [Provider Group] - 3-5 Days [facility] [Provider Group] - 3-5 Days Forms: Accompanied Note, Work/School Release Form(ED) Time of Disposition: 17:06
--- NOTE | 2017-07-30 17:00 | XRay Report ---
FINAL REPORT PROCEDURE: XR ANKLE 3+V LT TECHNIQUE: Left ankle radiographs, AP, lateral, and oblique views. CPT 16586 HISTORY: Fall injury. Left ankle pain. COMPARISON: No prior studies are available for comparison. FINDINGS: Fracture (s) and/or Dislocation(s): None . Alignment: Normal . Joint space(s): Normal . Soft tissues: Normal . Bone mineralization: Normal . Foreign bodies: None . Calcaneal spurring: Tiny plantar and calcaneal spurs. IMPRESSION: No radiographic evidence of displaced fracture.
--- NOTE | 2017-07-30 17:01 | XRay Report ---
FINAL REPORT PROCEDURE: XR KNEE 3V LT TECHNIQUE: LEFT knee radiographs, AP, lateral and oblique views. CPT 06646 HISTORY: Fall injury. Left knee pain. COMPARISON: No prior studies are available for comparison. FINDINGS: Fracture (s) and/or Dislocation(s): None . Alignment: Normal . Joint space(s): Mild medial compartment narrowing. Tiny patellar osteophytes. Soft tissues: Normal . Bone mineralization: Normal . Foreign bodies: None . IMPRESSION: No radiographic evidence of displaced fracture.
== END 2017-07-30 17:59 | disposition home or self-care (01) ==
LOC: ED 14:57
DX: S93.402A Sprain of unspecified ligament of left ankle, initial encounter (principal); S83.92XA Sprain of unspecified site of left knee, initial encounter; Z88.6 Allergy status to analgesic agent; X58.XXXA Exposure to other specified factors, initial encounter; Y93.89 Activity, other specified; Y92.89 Other specified places as the place of occurrence of the external cause; Y99.8 Other external cause status
CPT/HCPCS: 99283

== ENCOUNTER 2017-08-13 22:17 | Emergency (ER) | payer MEDICARE ==
[2017-08-14] MEDS ORDERED: TYLENOL PO ONE (00:41)
--- NOTE | 2017-08-14 00:44 | Emergency Department Report ---
HPI - General Chief Complaint: Extremity Injury, Lower Time Seen by Provider: 08/14/17 00:06 - HPI HPI: The patient is a 42 yo female who presents for evaluation of right arm pain. The patient was right upper arm pain and distal arm pain for the past 2 weeks, constant, aching quality, exacerbated with movement, improved at rest. She denies, injury to the arm, neck pain, paresthesias, motor deficit, presenting ecchymosis, puncture wound. ED Past Medical Hx - Past Medical History Hx Psychiatric Treatment: Yes (PTSD; BIPOLAR; DEPRESSION) Hx Asthma: Yes Additional medical history: Chronic pain - Surgical History Hx Appendectomy: Yes Additional Surgical History: RIGHT KNEE SURGERY. "STRETCHED ESOPHAGUS". RIGHT OVARY REMOVED - Social History Smoking Status: Never Smoker Substance Use Type: None - Medications Home Medications: Home Medications Medication Instructions Recorded Confirmed Last Taken Type Efinaconazole [Jublia] 8 ml TP DAILY #1 gui.w.appl 03/08/17 Unknown Rx Butalb/Acetamin/Caff 50-325-40 1 tab PO Q6HR PRN #17 tab 03/26/17 Unknown Rx [Fioricet] Naproxen [Naprosyn TAB] 500 mg PO BID PRN #20 tablet 04/30/17 Unknown Rx Ibuprofen [Motrin] 800 mg PO Q8HR PRN #30 tablet 07/30/17 Unknown Rx traMADol [Ultram 50 MG tab] 50 mg PO Q6HR PRN #6 tablet 07/30/17 Unknown Rx Cyclobenzaprine HCl [Flexeril 5 MG 5 mg PO Q8HR PRN #10 tab 08/14/17 Unknown Rx TAB] ED Review of Systems ROS: Stated complaint: RIGHT SHOULDER,ARM,WRIST PAIN Other details as noted in HPI Constitutional: denies: fever ENT: denies: throat or neck pain Respiratory: denies: cough, shortness of breath Cardiovascular: denies: chest pain Endocrine: denies unexplained weight loss or gain Gastrointestinal: denies: abdominal pain, nausea Genitourinary: denies: dysuria Musculoskeletal: reports arm pain denies: leg swelling Skin: denies: rash Neurological: denies: headache Hematological/Lymphatic: denies: easy bleeding or easy bruising Psych: denies sadness or hopelessness Physical Exam - Physical Exam Vital Signs: Vital Signs 08/13/17 08/14/17 22:31 00:17 Temperature 97.6 F 98.3 F Pulse Rate 79 79 Respiratory 18 19 Rate Blood Pressure 112/75 Blood Pressure 111/54 [Left] O2 Sat by Pulse 97 99 Oximetry Physical Exam: General: well-nourished, well-developed, no acute distress Head: Normocephalic, atraumatic Eyes: normal sclera ENT: Mucous membranes are pink and moist Neck: trachea midline, neck supple, No neck stiffness, no cervical adenopathy Respiratory: Breath sounds equal bilaterally, no wheezing, rales, or rhonchi Cardio: S1 and S2 present, no murmurs, rubs, gallops, capillary refill is brisk Abdomen: Normoactive bowel sounds, soft abdomen, no rigidity, no guarding or rebound tenderness Chest WALL/Back: No tenderness to palpation of the chest wall, no CVA tenderness with percussion Musc: right shoulder and dorso-ventral wrist tenderness to palpation present, no snuffbox tenderness, past active range of motion intact to the shoulder and wrist, no sensation more deficit in the right arm, no obvious deformity, with distal pulses intact, Skin: No rash Neuro: no facial drooping, normal speech Psych: Normal affect ED Course Vital Signs 08/13/17 08/14/17 22:31 00:17 Temperature 97.6 F 98.3 F Pulse Rate 79 79 Respiratory 18 19 Rate Blood Pressure 112/75 Blood Pressure 111/54 [Left] O2 Sat by Pulse 97 99 Oximetry ED Medical Decision Making - Medical Decision Making The patient was seen and examined by myself. The patient is placed on a security monitor and continuous pulse ox. On initial evaluation, the patient was found to be in no distress. Evaluation orders were placed. The patient given a tablet of pain medicine. X-ray of the right humerus and wrist are unremarkable.The patient was reevaluated and reported that their symptoms were markedly improved. The patient is stable for discharge with outpatient follow- up. The patient is given follow-up and return instructions. The patient expressed understanding and agreed with the plan. The patient is discharged in stable condition. Critical care attestation.: If time is entered above; I have spent that time in minutes in the direct care of this critically ill patient, excluding procedure time. ED Disposition Clinical Impression: Right upper limb pain, Acute pain of right wrist Disposition: TO HOME OR SELFCARE Is pt being admited?: No Does the pt Need Aspirin: No Condition: Stable Instructions: Musculoskeletal Pain (ED), Muscle Strain (ED), Peripheral Neuropathy (ED) Referrals: VAMSI PEDRO MD [Primary Care Provider] - 3-5 Days Time of Disposition: 00:44
--- NOTE | 2017-08-14 01:08 | XRay Report ---
FINAL REPORT EXAM: XR WRIST 2V RT HISTORY: right wrist pain TECHNIQUE: AP and lateral views of the right wrist were submitted. FINDINGS: There is no evidence of fracture or soft tissue injury. IMPRESSION: Negative exam. If there is a history of recent trauma and persistent wrist pain, follow-up study is recommended 7-10 days to evaluate for occult fracture.
--- NOTE | 2017-08-14 01:09 | XRay Report ---
FINAL REPORT EXAM: XR HUMERUS 2+V RT HISTORY: right upper arm pain TECHNIQUE: Three views of the right humerus were obtained. FINDINGS: There is no evidence of fracture or soft tissue injury. IMPRESSION: Within normal limits.
[2017-08-14 03:24] VITALS: BP 110/59
== END 2017-08-14 03:26 | disposition home or self-care (01) ==
LOC: ED 22:17
DX: M25.531 Pain in right wrist (principal)
CPT/HCPCS: 99284

== ENCOUNTER 2017-08-20 18:03 | Emergency (ER) | payer MEDICARE ==
--- NOTE | 2017-08-20 21:40 | Emergency Department Report ---
ED General Adult HPI - General Chief complaint: Nausea/Vomiting/Diarrhea Stated complaint: NAUSEA/VOMITING Time Seen by Provider: 08/20/17 19:43 Source: patient Mode of arrival: Ambulatory Limitations: No Limitations - History of Present Illness Initial comments: This is a 42-year-old female who complains today of nausea and vomiting 4 but also reports that she has been dizzy and falling due to a sprain of her left ankle. Since October 2016, she has had now 6 visits for tripping and falling and involving the left lower extremity. She was given a knee immobilizer a couple of weeks ago apparently and comes in wearing that. She reports that she uses crutches but falls when she uses crutches. She has a history of bipolar disorder as well as depression. There may be some other psychiatric components involved as well. She has a past medical history significant for asthma. She denies any calf tenderness or pain. She feels that her left lower extremity is more swollen than her right. She denies chest pain or shortness of breath. -: Gradual, days(s) (1 day for the nausea vomiting), month(s) (for the left lower extremity pain) Location: abdomen, lower extremity (left) Radiation: non-radiation Severity scale (0 -10): 8 Consistency: intermittent Improves with: none Worsens with: none Associated Symptoms: denies other symptoms, nausea/vomiting Treatments Prior to Arrival: NSAID - Related Data Previous Rx's Medication Instructions Recorded Last Taken Type Efinaconazole [Jublia] 8 ml TP DAILY #1 gui.w.appl 03/08/17 Unknown Rx Butalb/Acetamin/Caff 50-325-40 1 tab PO Q6HR PRN #17 tab 03/26/17 Unknown Rx [Fioricet] Naproxen [Naprosyn TAB] 500 mg PO BID PRN #20 tablet 04/30/17 Unknown Rx Ibuprofen [Motrin] 800 mg PO Q8HR PRN #30 tablet 07/30/17 Unknown Rx traMADol [Ultram 50 MG tab] 50 mg PO Q6HR PRN #6 tablet 07/30/17 Unknown Rx Cyclobenzaprine HCl [Flexeril 5 MG 5 mg PO Q8HR PRN #10 tab 08/14/17 Unknown Rx TAB] Allergies Allergy/AdvReac Type Severity Reaction Status Date / Time codeine AdvReac Intermediate Vomiting Verified 04/30/17 10:48 ED Review of Systems ROS: Stated complaint: NAUSEA/VOMITING Other details as noted in HPI Comment: All other systems reviewed and negative Constitutional: see HPI Eyes: as per HPI ENT: as per HPI Respiratory: see HPI Cardiovascular: as per HPI Endocrine: see HPI Gastrointestinal: as per HPI Genitourinary: as per HPI Musculoskeletal: as per HPI Skin: as per HPI Neurological: as per HPI Psychiatric: as per HPI Hematological/Lymphatic: as per HPI ED Past Medical Hx - Past Medical History Hx Psychiatric Treatment: Yes (PTSD; BIPOLAR; DEPRESSION) Hx Asthma: Yes Additional medical history: Chronic pain, hx of ovarian cancer. - Surgical History Hx Appendectomy: Yes Additional Surgical History: RIGHT KNEE SURGERY. "STRETCHED ESOPHAGUS". RIGHT OVARY REMOVED - Social History Smoking Status: Never Smoker Substance Use Type: None - Medications Home Medications: Home Medications Medication Instructions Recorded Confirmed Last Taken Type Efinaconazole [Jublia] 8 ml TP DAILY #1 gui.w.appl 03/08/17 Unknown Rx Butalb/Acetamin/Caff 50-325-40 1 tab PO Q6HR PRN #17 tab 03/26/17 Unknown Rx [Fioricet] Naproxen [Naprosyn TAB] 500 mg PO BID PRN #20 tablet 04/30/17 Unknown Rx Ibuprofen [Motrin] 800 mg PO Q8HR PRN #30 tablet 07/30/17 Unknown Rx traMADol [Ultram 50 MG tab] 50 mg PO Q6HR PRN #6 tablet 07/30/17 Unknown Rx Cyclobenzaprine HCl [Flexeril 5 MG 5 mg PO Q8HR PRN #10 tab 08/14/17 Unknown Rx TAB] ED Physical Exam - General Limitations: No Limitations General appearance: alert, in no apparent distress - Head Head exam: Present: atraumatic, normocephalic - Eye Eye exam: Present: normal appearance, PERRL, EOMI - ENT ENT exam: Present: normal exam - Neck Neck exam: Present: normal inspection - Respiratory Respiratory exam: Present: normal lung sounds bilaterally - Cardiovascular Cardiovascular Exam: Present: regular rate, normal rhythm, normal heart sounds - GI/Abdominal GI/Abdominal exam: Present: soft, tenderness (right upper quadrant), normal bowel sounds - Rectal Rectal exam: Present: deferred - Extremities Exam Extremities exam: Present: normal inspection, other (there may be some slight swelling of the left ankle when compared to the right. There is no calf tenderness. No erythema is appreciated. Passive range of motion reveals only mild tenderness. No bony deformities are appreciated. No ecchymosis is noted. The same can be said of the left knee.) - Back Exam Back exam: Present: normal inspection, full ROM ED Course Vital Signs 08/20/17 08/20/17 08/20/17 18:14 19:50 19:54 Temperature 97.5 F L 98.6 F Pulse Rate 79 68 Respiratory 20 20 Rate Blood Pressure 143/48 Blood Pressure 111/85 [Right] O2 Sat by Pulse 98 97 97 Oximetry 08/20/17 22:14 Temperature Pulse Rate Respiratory 20 Rate Blood Pressure Blood Pressure [Right] O2 Sat by Pulse Oximetry - Reevaluation(s) Reevaluation #1: 08/20/17 21:52 Upon review the patient's previous charts, it seems that the patient comes to the hospital frequently for complaints involving the left lower extremity. I'm not sure if there is a psychiatric component involved here as well. She did have recent x-rays of her left lower extremity and was told she had a sprain. I do not feel that we need to x-ray her again at this time. I advised the patient that she needs to see her primary care doctor or orthopedic doctor in case she is having difficulty with ambulation. With regards to her nausea and vomiting 4, we will go ahead and order blood work here today has a CBC and a CMP and an amylase and lipase and follow-up accordingly. At this time I do not feel any radiographic studies are necessary. The patient's abdominal exam revealed some right upper quadrant tenderness, her abdomen was soft, there was no guarding, no rebound. She is also afebrile. 08/20/17 23:17 The patient's labs are normal, I do not see a reason to keep her in the emergency room any longer. I advised her that she should follow-up with her primary care doctor choice. With regards to her left lower extremity, I advised her to to be sensible with regards to her ambulation and she may want to see physical therapy. I told her to follow up with her primary care doctor. I advised her to take [id number] pain medication as needed. I'll prescribe her Zofran for her nausea. She is to be discharged. 08/20/17 23:25 ED Medical Decision Making - Lab Data Result diagrams: 08/20/17 21:56 08/20/17 21:56 Critical care attestation.: If time is entered above; I have spent that time in minutes in the direct care of this critically ill patient, excluding procedure time. ED Disposition Clinical Impression: Nausea & vomiting Qualifiers: Vomiting type: psychogenic vomiting Qualified Code(s): F50.89 - Other specified eating disorder Mild ankle sprain Qualifiers: Encounter type: subsequent encounter Laterality: left Qualified Code(s): S93.402D - Sprain of unspecified ligament of left ankle, subsequent encounter Disposition: TO HOME OR SELFCARE Is pt being admited?: No Does the pt Need Aspirin: No Condition: Stable Instructions: Osteoarthritis (ED), Acute Nausea and Vomiting (ED), Ankle Exercises (GEN), Knee Exercises (GEN), Knee Sprain (ED), Ankle Sprain (ED) Additional Instructions: Rest, fluids, follow-up with her primary care doctor of choice, take over-the- counter medications as needed, call 911 if you think you having a life- threatening emergency, return as needed. Referrals: PRIMARY CARE, [Primary Care Provider] - 3-5 Days
[2017-08-20] MEDS ORDERED: ZOFRAN ODT PO ONE (21:55)
[2017-08-20] MEDS ORDERED: TORADOL IM ONE (21:55)
[2017-08-20 22:07] LABS: Basophils # (Auto) 0.1 K/mm3 (0.0-0.1); Basophils % (Auto) 0.8 % (0.0-1.8); Eosinophils # (Auto) 0.2 K/mm3 (0.0-0.4); Eosinophils % (Auto) 2.8 % (0.0-4.3); Hematocrit 39.1 % (30.3-42.9); Hemoglobin 13.4 gm/dl (10.1-14.3); Lymphocytes # (Auto) 2.5 K/mm3 (1.2-5.4); Lymphocytes % (Auto) 35.8 % (13.4-35.0); Mean Corpuscular HGB Conc 34 % (30-34); Mean Corpuscular Hemoglobin 32 pg (28-32); Mean Corpuscular Volume 95 fl (79-97); Monocytes # (Auto) 0.3 K/mm3 (0.0-0.8); Monocytes % (Auto) 4.2 % (0.0-7.3); Platelet Count 217 K/mm3 (140-440); Red Blood Count 4.14 M/mm3 (3.65-5.03); Red Cell Distribution Width 12.9 % (13.2-15.2)
[2017-08-20 22:28] LABS: Alanine Aminotransferase 15 units/L (7-56); Albumin 3.8 g/dL (3.9-5); BUN/Creatinine Ratio 17; Blood Urea Nitrogen 12 mg/dL (7-17); Calcium 9.6 mg/dL (8.4-10.2); Hemolysis Index 4; Lipase 42 units/L (13-60)
[2017-08-20 23:37] VITALS: BP 110/65
== END 2017-08-20 23:37 | disposition home or self-care (01) ==
LOC: ED 18:03
DX: S93.402A Sprain of unspecified ligament of left ankle, initial encounter (principal); Z88.6 Allergy status to analgesic agent; W01.0XXA Fall on same level from slipping, tripping and stumbling without subsequent striking against object, initial encounter; Y93.89 Activity, other specified; Y92.89 Other specified places as the place of occurrence of the external cause; Y99.8 Other external cause status
CPT/HCPCS: 36415; 80053; 82150; 83690; 85025; 96372; 99283; J1885; Q0162

== ENCOUNTER 2017-08-26 13:45 | Emergency (ER) | payer MEDICARE ==
[2017-08-26 13:59] VITALS: BP 119/73
--- NOTE | 2017-08-26 18:56 | Emergency Department Report ---
HPI - General Chief Complaint: Extremity Injury, Upper Time Seen by Provider: 08/26/17 17:30 - HPI HPI: The patient is a 42 yo female who presents for evaluation of right arm and shoulder pain. The patient states that she sustained a mechanical fall from tripping yesterday and has since experienced right shoulder pain and distal forearm pain since yesterday, constant, aching quality, exacerbated with movement, improved at rest. She states that she did not sustain injury to her head or experienced syncope. She denies fever, chills, night sweats, neck pain , paresthesias, motor deficit, redness, ecchymosis, puncture wound. ED Past Medical Hx - Past Medical History Hx Psychiatric Treatment: Yes (PTSD; BIPOLAR; DEPRESSION) Hx Asthma: Yes Additional medical history: Chronic pain, hx of ovarian cancer. - Surgical History Hx Appendectomy: Yes Additional Surgical History: RIGHT KNEE SURGERY. "STRETCHED ESOPHAGUS". RIGHT OVARY REMOVED - Social History Smoking Status: Never Smoker Substance Use Type: None - Medications Home Medications: Home Medications Medication Instructions Recorded Confirmed Last Taken Type Efinaconazole [Jublia] 8 ml TP DAILY #1 gui.w.appl 03/08/17 Unknown Rx Butalb/Acetamin/Caff 50-325-40 1 tab PO Q6HR PRN #17 tab 03/26/17 Unknown Rx [Fioricet] Naproxen [Naprosyn TAB] 500 mg PO BID PRN #20 tablet 04/30/17 Unknown Rx Cyclobenzaprine HCl [Flexeril 5 MG 5 mg PO Q8HR PRN #10 tab 08/14/17 Unknown Rx TAB] Ibuprofen [Motrin 800 MG tab] 800 mg PO Q8HR PRN #14 tablet 08/26/17 Unknown Rx traMADol [Ultram 50 MG tab] 50 mg PO Q6HR PRN #7 tablet 08/26/17 Unknown Rx ED Review of Systems ROS: Stated complaint: ARM PN X 1 WEEK Other details as noted in HPI Constitutional: denies: fever ENT: denies: throat or neck pain Respiratory: denies: cough, shortness of breath Cardiovascular: denies: chest pain Endocrine: denies unexplained weight loss or gain Gastrointestinal: denies: abdominal pain, nausea Genitourinary: denies: dysuria Musculoskeletal: reports arm pain denies: leg swelling Skin: denies: rash Neurological: denies: headache Hematological/Lymphatic: denies: easy bleeding or easy bruising Psych: denies sadness or hopelessness Physical Exam - Physical Exam Vital Signs: Vital Signs 08/26/17 13:55 Temperature 98.4 F Pulse Rate 77 Respiratory 16 Rate Blood Pressure 119/73 O2 Sat by Pulse 97 Oximetry Physical Exam: General: well-nourished, well-developed, no acute distress Head: Normocephalic, atraumatic Eyes: normal sclera ENT: Mucous membranes are pink and moist Neck: trachea midline, neck supple, No neck stiffness, no cervical adenopathy Respiratory: Breath sounds equal bilaterally, no wheezing, rales, or rhonchi Cardio: S1 and S2 present, no murmurs, rubs, gallops, capillary refill is brisk Abdomen: Normoactive bowel sounds, soft abdomen, no tenderness, no CVA tenderness or flank ecchymosis Musc: Right shoulder anterior joint line tenderness and right mid forearm tenderness to palpation present, no deformity, no bruising, ecchymosis, redness , swelling, passive range of motion to the right shoulder, elbow and wrist intact, sensation, motor function and pulses intact in the distal right arm Skin: No rash Neuro: no facial drooping, normal speech Psych: Normal affect ED Course Vital Signs 08/26/17 13:55 Temperature 98.4 F Pulse Rate 77 Respiratory 16 Rate Blood Pressure 119/73 O2 Sat by Pulse 97 Oximetry ED Medical Decision Making - Medical Decision Making The patient was seen and examined by myself. The patient is placed on a cardiac rehabilitation program director and continuous pulse ox. On initial evaluation, the patient was found to be in no distress. Evaluation orders were placed. The patient given pain medicine. X-ray of the right shoulder and right forearm are unremarkable. The patient was reevaluated and reported that their symptoms were markedly improved. The patient is stable for discharge with outpatient follow-up. The patient is given follow-up and return instructions. The patient expressed understanding and agreed with the plan. The patient is discharged in stable condition. Critical care attestation.: If time is entered above; I have spent that time in minutes in the direct care of this critically ill patient, excluding procedure time. ED Disposition Clinical Impression: Acute pain of right shoulder, Pain in right forearm Disposition: - TO HOME OR SELFCARE Is pt being admited?: No Does the pt Need Aspirin: No Condition: Stable Instructions: Musculoskeletal Pain (ED) Additional Instructions: Do not take more than the prescribed dose of pain medicine, or combine or take the pain medicine prescribed to you today with other pain medicine, sleeping medicine or other sedatives, or with alcohol, as doing so may cause central nervous system sedation and respiratory depression, and potentially cause you to stop breathing and . Additionally, do not drive a vehicle, operate heavy machinery, or engage in any activity that would cause harm to yourself or others after taking the pain medicine prescribed to you. Prescriptions: Ibuprofen [Motrin 800 MG tab] 800 mg PO Q8HR PRN #14 tablet PRN Reason: Pain traMADol [Ultram 50 MG tab] 50 mg PO Q6HR PRN #7 tablet PRN Reason: Pain Referrals: PRIMARY CARE, [Primary Care Provider] - 3-5 Days Time of Disposition: 18:56
--- NOTE | 2017-08-26 19:11 | XRay Report ---
FINAL REPORT PROCEDURE: XR FOREARM RT TECHNIQUE: RIGHT forearm radiographs, AP and lateral views. CPT 93618 HISTORY: Right forearm and wrist pain. COMPARISON: Right wrist radiographs dated 08/13/2017. FINDINGS: Fracture (s) and/or Dislocation(s): None . Joint space(s): Normal . Soft tissues: Normal . Bone mineralization: Normal . Foreign bodies: None . IMPRESSION: No radiographic evidence of acute abnormality.
--- NOTE | 2017-08-26 19:11 | XRay Report ---
FINAL REPORT EXAM: XR SHOULDER 2+V RT HISTORY: rt shld pain TECHNIQUE: AP, Y, and oblique views of the right shoulder PRIORS: None. FINDINGS: There is no evidence of acute fracture or dislocation. Joint spaces are maintained and bony mineralization is normal. Soft tissues are unremarkable. IMPRESSION: No acute abnormality identified in the right shoulder.
== END 2017-08-26 19:09 | disposition home or self-care (01) ==
LOC: ED 13:45
DX: M25.511 Pain in right shoulder (principal)
CPT/HCPCS: 99283

== ENCOUNTER 2017-08-29 07:15 | Emergency (ER) | payer MEDICARE ==
[2017-08-29 07:24] VITALS: BP 128/69
[2017-08-29] MEDS ORDERED: DECADRON IM STA (07:51)
--- NOTE | 2017-08-29 07:51 | Emergency Department Report ---
ED Headache HPI - General Chief Complaint: Headache Stated Complaint: CARRANZA/ SORE THROAT Time Seen by Provider: 08/29/17 07:42 Source: patient, family Exam Limitations: no limitations - History of Present Illness Initial Comments: Patient reports that she has headache and possible ear infection and dizziness since yesterday. She is complaining of nausea and was noted to vomit large amount of vomitus in back. She says she has a history of migraine and last time she had migraine this is what happened. She says she gets sensitivity to light, frontal headache, earache and dizziness. Denies any head injury or any falling. Denies any loss of vision. Denies any nasal congestion or runny nose. Denies any facial pain or pressure. Denies any sore throat. Denies any chest pain or shortness of breath. Denies any fever or chills or neck pain or stiffness. Denies any abdominal or back pain. Denies any radiation of pain to her extremities. Denies any numbness or tingling. Patient has a history of multiple psych problem with chronic pain and a history of ovarian cancer. She has a history of right ovary removed, appendectomy and right knee surgery. History of asthma. Patient says she's had a CT scan the past when she started having her migraine and it was normal. She describes her pain as achy located to both sides of her head frontally and 10 out of 10. She says she's been taking Motrin that is not helping. Nothing makes it better and light and noise makes it worse. Patient says she woke up this morning with this. She also does not have a primary care physician Timing/Duration: 1-3 hours Quality: severe, achy, constant Head Injury Location: frontal Recent Head Trauma: chronic headaches Modifying Factors: improves with: exposure to light, movement, rest Associated Symptoms: nausea/vomiting, vision changes (sensitivity to light), other (earache). denies: confusion, fatigue, facial pain, fever/chills, flushing, loss of consciousness, nasal congestion, nasal drainage, numbness in legs/feet, rash, seizures, sinus infection, stiff neck, weakness Allergies/Adverse Reactions: Allergies codeine Adverse Reaction (Intermediate, Verified 04/30/17 10:48) Vomiting Home Medications: Ambulatory Orders Efinaconazole [Jublia] 8 ml TP DAILY #1 gui.w.appl 03/08/17 Naproxen [Naprosyn TAB] 500 mg PO BID PRN #20 tablet 04/30/17 Cyclobenzaprine HCl [Flexeril 5 MG TAB] 5 mg PO Q8HR PRN #10 tab 08/14/17 Ibuprofen [Motrin 800 MG tab] 800 mg PO Q8HR PRN #14 tablet 08/26/17 traMADol [Ultram 50 MG tab] 50 mg PO Q6HR PRN #7 tablet 08/26/17 Butalb/Acetamin/Caff 50-325-40 [Fioricet] 1 tab PO Q6HR PRN #12 tab 08/29/17 Ondansetron [Zofran Odt] 4 mg PO Q8HR PRN #12 tab.rapdis 08/29/17 ED Review of Systems ROS: Stated complaint: CARRANZA/ SORE THROAT Other details as noted in HPI Comment: All other systems reviewed and negative Constitutional: no symptoms reported Eyes: other (sensitivity to light). denies: eye pain, eye discharge ENT: ear pain. denies: throat pain, dental pain, hearing loss, epistaxis, congestion Respiratory: no symptoms reported Cardiovascular: denies: chest pain, palpitations, dyspnea on exertion, orthopnea , edema, syncope, paroxysmal nocturnal dyspnea Gastrointestinal: denies: abdominal pain, nausea, vomiting, diarrhea, constipation, hematemesis, melena, hematochezia Genitourinary: denies: dysuria, frequency, hematuria, discharge, abnormal menses Musculoskeletal: denies: back pain, joint swelling, arthralgia, myalgia Skin: denies: rash Neurological: headache. denies: weakness, numbness, paresthesias, confusion, abnormal gait, vertigo ED Past Medical Hx - Past Medical History Previous Medical History?: Yes Hx Psychiatric Treatment: Yes (PTSD; BIPOLAR; DEPRESSION) Hx Asthma: Yes Additional medical history: Chronic pain, hx of ovarian cancer. - Surgical History Past Surgical History?: Yes Hx Appendectomy: Yes Additional Surgical History: RIGHT KNEE SURGERY. "STRETCHED ESOPHAGUS". RIGHT OVARY REMOVED - Family History Family history: hypertension - Social History Smoking Status: Never Smoker Substance Use Type: None - Medications Home Medications: Home Medications Medication Instructions Recorded Confirmed Last Taken Type Efinaconazole [Jublia] 8 ml TP DAILY #1 gui.w.appl 03/08/17 Unknown Rx Naproxen [Naprosyn TAB] 500 mg PO BID PRN #20 tablet 04/30/17 Unknown Rx Cyclobenzaprine HCl [Flexeril 5 MG 5 mg PO Q8HR PRN #10 tab 08/14/17 Unknown Rx TAB] Ibuprofen [Motrin 800 MG tab] 800 mg PO Q8HR PRN #14 tablet 08/26/17 Unknown Rx traMADol [Ultram 50 MG tab] 50 mg PO Q6HR PRN #7 tablet 08/26/17 Unknown Rx Butalb/Acetamin/Caff 50-325-40 1 tab PO Q6HR PRN #12 tab 08/29/17 Unknown Rx [Fioricet] Ondansetron [Zofran Odt] 4 mg PO Q8HR PRN #12 tab.rapdis 08/29/17 Unknown Rx ED Physical Exam - General Limitations: No Limitations General appearance: alert, in no apparent distress - Head Head exam: Present: atraumatic, normocephalic, normal inspection, other (normal exam) - Eye Eye exam: Present: normal appearance, PERRL, EOMI. Absent: scleral icterus, conjunctival injection, nystagmus, periorbital swelling, periorbital tenderness Pupils: Present: normal accommodation - ENT ENT exam: Present: normal exam, normal orophraynx, mucous membranes moist, TM's normal bilaterally, normal external ear exam, other (frontal /maxillary sinuses nontender to palpate) - Neck Neck exam: Present: normal inspection, full ROM, other (no C-spine tenderness). Absent: tenderness, meningismus, lymphadenopathy, thyromegaly - Respiratory Respiratory exam: Present: normal lung sounds bilaterally. Absent: respiratory distress, chest wall tenderness, accessory muscle use - Cardiovascular Cardiovascular Exam: Present: regular rate, normal rhythm, normal heart sounds. Absent: systolic murmur, diastolic murmur - GI/Abdominal GI/Abdominal exam: Present: soft, normal bowel sounds. Absent: distended, tenderness, guarding, rebound, rigid, organomegaly, mass, bruit, pulsatile mass , hernia - Extremities Exam Extremities exam: Present: normal inspection, full ROM, normal capillary refill , other (no clubbing, cyanosis or edema. +2 pulses all extremities and no neurovascular compromise. +5 strength in all extremities). Absent: tenderness , pedal edema, joint swelling, calf tenderness - Back Exam Back exam: Present: normal inspection, full ROM, other (ambulates without any difficulties). Absent: tenderness, CVA tenderness (R), CVA tenderness (L), muscle spasm, paraspinal tenderness, vertebral tenderness, rash noted - Neurological Exam Neurological exam: Present: alert, oriented X3, normal gait, reflexes normal. Absent: motor sensory deficit - Expanded Neurological Exam Expanded Neurological exam: Absent: innattentive, memory loss-remote event, memory loss- recent event, ataxia, receptive aphasia, expressive aphasia, total aphasia, tremor, protecting the airway Patient oriented to: Present: person, place, time Speech: Present: fluid speech Cranial nerves: EOM's Intact: Normal, Gag Reflex: Normal, Tongue Deviation: Normal, Nystagmus: Normal, Facial Sensation: Normal Cerebellar function: Finger to Nose: Normal, Romberg: Normal Upper motor neuron: Pronator Drift: Normal, Sensory Extinction: Normal Sensory exam: Upper Extremity Light Touch: Normal, Upper Extremity Pin Prick: Normal, Upper Extremity Temperature: Normal, UE 2 Point Discrimination: Normal, Lower Extremity Light Touch: Normal, Lower Extremity Pin Prick: Normal, Lower Extremity Temperature: Normal, LE 2 Point Discrimination: Normal Motor strength exam: RUE: 5, LUE: 5, RLE: 5, LLE: 5 DTR: bicep (R): 2+, bicep (L): 2+, tricep (R): 2+, tricep (L): 2+, knee (R): 2+ , knee (L): 2+, ankle (R): 2+, ankle (L): 2+ Best Eye Response (Emilio): (4) open spontaneously Best Motor Response ([place]): (6) obeys commands Best Verbal Response (Emilio): (5) oriented Emilio Total: 15 - Psychiatric Psychiatric exam: Present: normal affect, normal mood - Skin Skin exam: Present: warm, dry, intact, normal color. Absent: rash ED Course Vital Signs 08/29/17 07:20 Temperature 98.3 F Pulse Rate 94 H Respiratory 20 Rate Blood Pressure 128/69 O2 Sat by Pulse 96 Oximetry - Reevaluation(s) Reevaluation #1: 08/29/17 09:02 Patient was given Decadron 10 mg IV, Benadryl 50 mg IV, Toradol 60 mg IV Reglan 10 mg IV, Zofran 8 mg ODT. She is also given 1 L of normal saline and she voiced relief of nausea and headache. Able to tolerate oral liquids without any ED Medical Decision Making - Medical Decision Making ED course:Pt here reports that she has headache and nausea and she has a history of migraine headache is located frontally. She says headache presents the same in the last time she has this was one month ago. She reports nausea and vomiting and was noted to be vomiting. She voiced relief of headache. She was given Zofran 8 mg ODT, IV fluids 1 L normal saline, Benadryl 50 mg IV, Toradol 60 mg IV, Reglan 10 mg IV and Decadron 10 mg IV and emergency room. Patient states that she does not have a primary care. She's had previous CT scan in the past which is normal .she said she was diagnosed with migraine headache by a neurologist. He is not on any medication for migraine. I discussed the patient's is 90 to follow up with neurologist as she does not have one at present to reevaluate and possibly put on long-term medication for migraine headache, I also told her that she needs to follow up with primary care physician and I'll refer her to some [facility]. Diagnosis and treatment plan explained to patient. She voiced understanding. Patient able to tolerate oral liquids prior to discharge. She is discharged home with family with prescription for Zofran and Fioricet with codeine. Critical care attestation.: If time is entered above; I have spent that time in minutes in the direct care of this critically ill patient, excluding procedure time. ED Disposition Clinical Impression: Nausea and vomiting in adult patient Migraine headache without aura Qualifiers: Status migrainosus presence: without status migrainosus Intractability: not intractable Qualified Code(s): G43.009 - Migraine without aura, not intractable , without status migrainosus Disposition: DC-01 TO HOME OR SELFCARE Is pt being admited?: No Does the pt Need Aspirin: No Condition: Stable Instructions: Migraine Headache (ED), Acute Nausea and Vomiting (ED) Additional Instructions: Please follow up with neurology and primary care physician as instructed Increase fluid intake Do not drive or operate heavy machinery while taking Fioricet with codeine as this medication causes drowsiness Take Zofran for nausea Prescriptions: Butalb/Acetamin/Caff 50-325-40 [Fioricet] 1 tab PO Q6HR PRN #12 tab PRN Reason: Headache Ondansetron [Zofran Odt] 4 mg PO Q8HR PRN #12 tab.rapdis PRN Reason: Nausea And Vomiting Referrals: [facility] [Outside] - 08/31/17 JEFF CORDON MD [Staff Physician] - 2-3 Days Forms: Accompanied Note, Work/School Release Form(ED)
[2017-08-29] MEDS ORDERED: TYLENOL PO ONE (07:52)
[2017-08-29] MEDS ORDERED: TORADOL IM ONE (07:55)
[2017-08-29] MEDS ORDERED: DECADRON IM ONE (07:55)
[2017-08-29] MEDS ORDERED: BENADRYL IM ONE (07:55)
[2017-08-29] MEDS ORDERED: ZOFRAN ODT PO ONE (07:55)
[2017-08-29] MEDS ORDERED: DECADRON IV ONE (08:00)
[2017-08-29] MEDS ORDERED: TORADOL IVP ONE (08:01)
[2017-08-29] MEDS ORDERED: BENADRYL IV ONE (08:01)
[2017-08-29] MEDS ORDERED: REGLAN IV ONE (08:02)
[2017-08-29] MEDS ORDERED: NACL 0.9% 1000 ML 1,000 ML IV ONE (08:02)
== END 2017-08-29 09:21 | disposition home or self-care (01) ==
LOC: ED 07:15
DX: G43.909 Migraine, unspecified, not intractable, without status migrainosus (principal); Z88.6 Allergy status to analgesic agent
CPT/HCPCS: 96361; 96374; 96375; 99283; J1100; J1200; J1885; J2765; J7030; Q0162

== ENCOUNTER 2017-08-30 21:10 | Emergency (ER) | payer MEDICARE ==
[2017-08-30 21:24] VITALS: BP 116/52
== END 2017-08-30 23:35 | disposition left against medical advice (07) ==
LOC: ED 21:10
DX: J02.9 Acute pharyngitis, unspecified (principal); M79.606 Pain in leg, unspecified; Z53.21 Procedure and treatment not carried out due to patient leaving prior to being seen by health care provider

== ENCOUNTER 2017-09-07 22:20 | Emergency (ER) | payer MEDICARE ==
[2017-09-07 23:34] VITALS: BP 126/82
[2017-09-07] MEDS ORDERED: TYLENOL ONE (23:34)
[2017-09-07] MEDS ORDERED: TYLENOL PO ONE (23:36)
[2017-09-08] MEDS ORDERED: NORCO 5/325 ONE (01:07)
[2017-09-08] MEDS ORDERED: NORCO 5/325 PO ONE (01:13)
--- NOTE | 2017-09-08 02:15 | XRay Report ---
FINAL REPORT PROCEDURE: XR KNEE 3V LT TECHNIQUE: LEFT knee radiographs, AP, lateral and oblique views. CPT 38856 HISTORY: fall, c/o pain to left knee COMPARISON: No prior studies are available for comparison. FINDINGS: Fracture (s) and/or Dislocation(s): None . Alignment: Normal . Joint space(s): Normal . Soft tissues: Normal . Bone mineralization: Normal . Foreign bodies: None . IMPRESSION: Normal Examination.
--- NOTE | 2017-09-08 02:15 | XRay Report ---
FINAL REPORT PROCEDURE: XR ANKLE 3+V LT TECHNIQUE: LEFT ankle radiographs, AP, lateral, and oblique views. CPT 38000 HISTORY: fall, c/o pain to left ankle COMPARISON: No prior studies are available for comparison. FINDINGS: Fracture (s) and/or Dislocation(s): None. Alignment: Normal. Joint space(s): Normal. Soft tissues: Normal. Bone mineralization: Normal. Foreign bodies: None. Calcaneal spurring: None. IMPRESSION: Normal Examination.
--- NOTE | 2017-09-08 03:44 | Emergency Department Report ---
ED Lower Extremity HPI - General Chief Complaint: Extremity Injury, Lower Stated Complaint: LEFT LEG PAIN Time Seen by Provider: 09/08/17 02:40 Source: patient, family Mode of arrival: Ambulatory Limitations: No Limitations - History of Present Illness Initial Comments: Patient here report that her left leg is painful and started today after she fell. She reports pain to her left knee and also to her left ankle. Pain is localized to these 2 areas. Pain is 10 out of 10 worse with movement better with rest. She should benefit from gbil-drj-[id number] pain medication but didn't help. She reports swelling to her knee and ankle. Denies any numbness or tingling. Denies any injuries to any other area. Reports that she cannot weight-bear to her left lower extremity and she came to emergency room with crutches. MD Complaint: knee injury, ankle injury -: This evening Injury: Knee: Left (pain and swelling), Ankle: Left (pain and swelling in) Type of Injury: other (patient reports that she fell and injured her left knee and left ankle) Place: street/outdoors Severity: severe Severity scale (0 -10): 10 Improves With: rest Worsens With: weight bearing, movement, palpation Context: fall Associated Symptoms: swelling, unable to bear weight. denies: snap/pop sensation, numbness, tingling Treatments Prior to Arrival: other (lkee-jup-orpogpi pain medication and crutches) - Related Data Previous Rx's Medication Instructions Recorded Last Taken Type Efinaconazole [Jublia] 8 ml TP DAILY #1 gui.w.appl 03/08/17 Unknown Rx Naproxen [Naprosyn TAB] 500 mg PO BID PRN #20 tablet 04/30/17 Unknown Rx Cyclobenzaprine HCl [Flexeril 5 MG 5 mg PO Q8HR PRN #10 tab 08/14/17 Unknown Rx TAB] traMADol [Ultram 50 MG tab] 50 mg PO Q6HR PRN #7 tablet 08/26/17 Unknown Rx Butalb/Acetamin/Caff 50-325-40 1 tab PO Q6HR PRN #12 tab 08/29/17 Unknown Rx [Fioricet] Ondansetron [Zofran Odt] 4 mg PO Q8HR PRN #12 tab.rapdis 08/29/17 Unknown Rx Ibuprofen [Motrin 800 MG tab] 800 mg PO Q8HR PRN #14 tablet 09/08/17 Unknown Rx Allergies Allergy/AdvReac Type Severity Reaction Status Date / Time codeine AdvReac Intermediate Vomiting Verified 04/30/17 10:48 ED Review of Systems ROS: Stated complaint: LEFT LEG PAIN Other details as noted in HPI Comment: All other systems reviewed and negative Constitutional: no symptoms reported Respiratory: no symptoms reported Cardiovascular: denies: chest pain, palpitations, dyspnea on exertion, edema, syncope, paroxysmal nocturnal dyspnea Gastrointestinal: denies: abdominal pain, nausea, vomiting, diarrhea, constipation, hematemesis, melena, hematochezia Genitourinary: denies: dysuria, hematuria Musculoskeletal: joint swelling, arthralgia. denies: back pain, myalgia Skin: denies: rash Neurological: abnormal gait (reports unable to weight-bear due to pain to left knee and ankle). denies: headache, weakness, numbness, paresthesias, confusion ED Past Medical Hx - Past Medical History Previous Medical History?: Yes Hx Psychiatric Treatment: Yes (PTSD; BIPOLAR; DEPRESSION) Hx Asthma: Yes Additional medical history: Chronic pain, hx of ovarian cancer. - Surgical History Past Surgical History?: Yes Hx Appendectomy: Yes Additional Surgical History: RIGHT KNEE SURGERY. "STRETCHED ESOPHAGUS". RIGHT OVARY REMOVED - Family History Family history: hypertension - Social History Smoking Status: Never Smoker Substance Use Type: None - Medications Home Medications: Home Medications Medication Instructions Recorded Confirmed Last Taken Type Efinaconazole [Jublia] 8 ml TP DAILY #1 gui.w.appl 03/08/17 Unknown Rx Naproxen [Naprosyn TAB] 500 mg PO BID PRN #20 tablet 04/30/17 Unknown Rx Cyclobenzaprine HCl [Flexeril 5 MG 5 mg PO Q8HR PRN #10 tab 08/14/17 Unknown Rx TAB] traMADol [Ultram 50 MG tab] 50 mg PO Q6HR PRN #7 tablet 08/26/17 Unknown Rx Butalb/Acetamin/Caff 50-325-40 1 tab PO Q6HR PRN #12 tab 08/29/17 Unknown Rx [Fioricet] Ondansetron [Zofran Odt] 4 mg PO Q8HR PRN #12 tab.rapdis 08/29/17 Unknown Rx Ibuprofen [Motrin 800 MG tab] 800 mg PO Q8HR PRN #14 tablet 09/08/17 Unknown Rx ED Physical Exam - General Limitations: No Limitations General appearance: alert, in no apparent distress - Head Head exam: Present: atraumatic, normocephalic, normal inspection, other (normal exam) - Eye Eye exam: Present: normal appearance, PERRL, EOMI. Absent: nystagmus, periorbital swelling, periorbital tenderness Pupils: Present: normal accommodation - ENT ENT exam: Present: normal exam, normal orophraynx, mucous membranes moist - Neck Neck exam: Present: normal inspection, full ROM, other (no C-spine tenderness). Absent: tenderness, meningismus, lymphadenopathy - Respiratory Respiratory exam: Present: normal lung sounds bilaterally. Absent: respiratory distress, chest wall tenderness - Cardiovascular Cardiovascular Exam: Present: regular rate, normal rhythm, normal heart sounds - GI/Abdominal GI/Abdominal exam: Present: soft, normal bowel sounds. Absent: distended, tenderness, guarding, rebound, rigid - Extremities Exam Extremities exam: Present: normal inspection, normal capillary refill, joint swelling, other (no neurovascular compromise. Positive pulses all extremities.) . Absent: full ROM, tenderness, pedal edema, calf tenderness - Expanded Lower Extremity Exam Left Hip exam: Present: normal inspection, full ROM, pelvic stability. Absent: tenderness, swelling, abrasion, laceration, ecchymosis, deformity, crepidus, dislocation, erythema, external rotation, internal rotation, shortening Upper Leg exam: Present: normal inspection, full ROM. Absent: tenderness, swelling, abrasion, laceration, ecchymosis, deformity, crepidus, dislocation, erythema Knee exam: Present: full ROM (full range of motion but painful with extension of left knee and dorsiflexion of left ankle), tenderness (left knee outer lateral), swelling (left knee anteriorly), pain w/ pronation/supination, full knee extension (patient unable to extend her knee fully). Absent: normal inspection, abrasion, laceration, ecchymosis, deformity, crepidus, dislocation, erythema, effusion, posterior draw sign, pain/laxity with valgus, pain/laxity with varus Lower Leg exam: Present: normal inspection, full ROM. Absent: tenderness, swelling, abrasion, laceration, ecchymosis, deformity, crepidus, dislocation, erythema, palpable cord, Ksenia's sign Ankle exam: Present: normal inspection, tenderness (left outer ankle). Absent: full ROM, swelling, abrasion, laceration, ecchymosis, deformity, crepidus, dislocation, erythema Foot/Toe exam: Present: normal inspection, full ROM. Absent: tenderness, swelling, abrasion, laceration, ecchymosis, deformity, crepidus, dislocation, erythema, amputation, puncture wound, foreign body, calcaneal tenderness, tenderness at base of 5th metatarsal, nail avulsion, subungual hematoma Neuro vascular tendon exam: Present: no vascular compromise, motor deficit ( decreased strength to left knee due to pain and swelling.), sensory deficit, significant pain with passive ROM of distal joint. Absent: pulse deficit, abnormal cap refill, tendon deficit, extremity cold to touch, pallor, abnormal 2 -point discrimination, decreased fine/light touch, foot drop, peroneal nerve deficit Gait: Positive: antalgic - Back Exam Back exam: Present: normal inspection, full ROM, other (patient unable to ambulate due to left knee injury and pain). Absent: tenderness, CVA tenderness (R), CVA tenderness (L), muscle spasm, paraspinal tenderness, vertebral tenderness, rash noted - Neurological Exam Neurological exam: Present: alert, oriented X3, abnormal gait (abnormal gait due to left knee injury and pain), reflexes normal - Psychiatric Psychiatric exam: Present: normal affect, normal mood - Skin Skin exam: Present: warm, dry, intact, normal color. Absent: rash ED Course Vital Signs 09/07/17 09/07/17 22:28 23:27 Temperature 98.2 F 98.2 F Pulse Rate 81 81 Respiratory 14 16 Rate Blood Pressure 153/59 126/82 O2 Sat by Pulse 97 97 Oximetry - Reevaluation(s) Reevaluation #1: 09/08/17 03:47 She received Tylenol 650 mg by mouth 1 which did not help her pain so she received [place] 5/325 mg 2 tablets by mouth in emergency room. Please refer to procedure note for splint in detail - Orthopedic Splinting/Casting Injury #1 Side: left Lower Extremity Injury Location: knee Lower Extremity Immobilizer: knee immobilizer Other Orthopedic Equipment: crutches (patient has her own crutches) Additional Comments: Patient with good color, movement, temperature and sensation to both feet. ED Lower Extremity MDM - Radiology Data Radiology results: report reviewed X-ray of left knee reveals normal exam X-ray of left ankle reveal normal exam - Medical Decision Making ED course: She is here complaining that she fell accidentally and injured her left knee and left ankle. X-ray report showed no acute fracture or dislocation. Physical finding for tenderness to palpate to outer lateral knee and anterior knee. She has minimal swelling without any effusion. No crepitus. Ankle exam normal except for minimal pain. Patient says she could not walk and therefore she was given knee immobilizer and she had her crutches with her. He received Tylenol 650 mg in triage area and later received [place] 5/ 325 2 tablets by mouth in emergency room. I discussed x-ray results and diagnosis with treatment plan the patient and she voiced understanding. Please refer to procedure section for splinting. Patient discharged home in stable condition with prescription for Motrin and to follow-up with outside for primary care and Dr. Moser. Discharged home with her family member Critical care attestation.: If time is entered above; I have spent that time in minutes in the direct care of this critically ill patient, excluding procedure time. ED Disposition Clinical Impression: Arthralgia of multiple sites, Fall from ground level Contusion of left knee Qualifiers: Encounter type: initial encounter Qualified Code(s): S80.02XA - Contusion of left knee, initial encounter Disposition: - TO HOME OR SELFCARE Is pt being admited?: No Does the pt Need Aspirin: No Condition: Stable Instructions: Contusion in Adults (ED), Knee Pain (ED), RICE Therapy (ED), Knee Immobilizer (ED) Additional Instructions: Please follow up with orthopedic doctor on 09/09/2017 Follow-up discharge instruction on Rice therapy Take Motrin as prescribed for pain Prescriptions: Ibuprofen [Motrin 800 MG tab] 800 mg PO Q8HR PRN #14 tablet PRN Reason: Pain Referrals: PRIMARY CAREMD [Primary Care Provider] - 09/09/17 THIAGO MOSER MD [Staff Physician] - 09/09/17 [facility] [Outside] - 09/09/17 Forms: Accompanied Note, Work/School Release Form(ED)
== END 2017-09-08 04:10 | disposition home or self-care (01) ==
LOC: ED 22:20
DX: S80.02XA Contusion of left knee, initial encounter (principal); Z88.6 Allergy status to analgesic agent; W18.30XA Fall on same level, unspecified, initial encounter; Y93.89 Activity, other specified; Y92.89 Other specified places as the place of occurrence of the external cause; Y99.8 Other external cause status
CPT/HCPCS: 99283

== ENCOUNTER 2017-09-17 01:15 | Emergency (ER) | payer MEDICARE ==
[2017-09-17 03:00] VITALS: BP 110/65
== END 2017-09-17 03:26 | disposition left against medical advice (07) ==
LOC: ED 01:15
DX: M79.602 Pain in left arm (principal); M79.605 Pain in left leg; Z53.21 Procedure and treatment not carried out due to patient leaving prior to being seen by health care provider
CPT/HCPCS: 93005; 93010

== ENCOUNTER 2017-10-05 18:31 | Emergency (ER) | payer MEDICARE ==
[2017-10-05 18:40] VITALS: BP 121/50
[2017-10-05] MEDS ORDERED: MOTRIN PO ONE (21:46)
--- NOTE | 2017-10-05 21:49 | Emergency Department Report ---
ED Fall HPI - General Chief Complaint: Fall Stated Complaint: BODY ACHE Time Seen by Provider: 10/05/17 21:44 Source: patient Mode of arrival: Ambulatory - History of Present Illness Initial Comments: 42-year-old [place] female with a past medical history schizophrenia and bipolar for learning disability as well as asthma comes in complaining of left leg pain after a ground-level fall. Patient is able to ambulate to triage without difficulties. Patient reports that pain is worse with walking and putting pressure to her left leg. Patient reports pain is 10 out of 10. Patient currently is taking trazodone, Risperdal, Tiffany, Prozac. She has an allergy to codeine makes her vomit. Complaint: fall -: This afternoon Fall From: standing When Fall Occurred: 4-6 hours [employer] Fall Witnessed: no Place Fall Occurred: street Loss of Consciousness: none Prolonged Down Time?: no Symptoms Prior to Fall: none Location - Extremities: Left: Knee (pain with movement and pressure), Ankle ( pain with movement and pressure) Severity scale (0 -10): 10 Quality: aching Context: tripped/slipped Associated Symptoms: denies - Related Data Previous Rx's Medication Instructions Recorded Last Taken Type Efinaconazole [Jublia] 8 ml TP DAILY #1 gui.w.appl 03/08/17 Unknown Rx Cyclobenzaprine HCl [Flexeril 5 MG 5 mg PO Q8HR PRN #10 tab 08/14/17 Unknown Rx TAB] traMADol [Ultram 50 MG tab] 50 mg PO Q6HR PRN #7 tablet 08/26/17 Unknown Rx Butalb/Acetamin/Caff 50-325-40 1 tab PO Q6HR PRN #12 tab 08/29/17 Unknown Rx [Fioricet] Ondansetron [Zofran Odt] 4 mg PO Q8HR PRN #12 tab.rapdis 08/29/17 Unknown Rx Ibuprofen [Motrin 800 MG tab] 800 mg PO Q8HR PRN #14 tablet 09/08/17 Unknown Rx Naproxen [Naprosyn TAB] 500 mg PO BID PRN #20 tablet 10/05/17 Unknown Rx Allergies Allergy/AdvReac Type Severity Reaction Status Date / Time codeine AdvReac Intermediate Vomiting Verified 10/05/17 18:37 ED Review of Systems ROS: Stated complaint: BODY ACHE Other details as noted in HPI Constitutional: denies: chills, fever Eyes: denies: eye pain, eye discharge, vision change ENT: denies: ear pain, throat pain Respiratory: denies: cough, shortness of breath, wheezing Cardiovascular: denies: chest pain, palpitations Endocrine: no symptoms reported Gastrointestinal: denies: abdominal pain, nausea, diarrhea Genitourinary: denies: urgency, dysuria, discharge Musculoskeletal: arthralgia (left ankle, left knee). denies: back pain, joint swelling Skin: denies: rash, lesions Neurological: denies: headache, weakness, paresthesias Psychiatric: denies: anxiety, depression Hematological/Lymphatic: denies: easy bleeding, easy bruising ED Past Medical Hx - Past Medical History Hx Psychiatric Treatment: Yes (PTSD; BIPOLAR; DEPRESSION) Hx Asthma: Yes Additional medical history: Chronic pain, hx of ovarian cancer. - Surgical History Hx Appendectomy: Yes Additional Surgical History: RIGHT KNEE SURGERY. "STRETCHED ESOPHAGUS". RIGHT OVARY REMOVED - Social History Smoking Status: Never Smoker Substance Use Type: None - Medications Home Medications: Home Medications Medication Instructions Recorded Confirmed Last Taken Type Efinaconazole [Jublia] 8 ml TP DAILY #1 gui.w.appl 03/08/17 Unknown Rx Cyclobenzaprine HCl [Flexeril 5 MG 5 mg PO Q8HR PRN #10 tab 08/14/17 Unknown Rx TAB] traMADol [Ultram 50 MG tab] 50 mg PO Q6HR PRN #7 tablet 08/26/17 Unknown Rx Butalb/Acetamin/Caff 50-325-40 1 tab PO Q6HR PRN #12 tab 08/29/17 Unknown Rx [Fioricet] Ondansetron [Zofran Odt] 4 mg PO Q8HR PRN #12 tab.rapdis 08/29/17 Unknown Rx Ibuprofen [Motrin 800 MG tab] 800 mg PO Q8HR PRN #14 tablet 09/08/17 Unknown Rx Naproxen [Naprosyn TAB] 500 mg PO BID PRN #20 tablet 10/05/17 Unknown Rx ED Physical Exam - General Limitations: No Limitations General appearance: alert, in no apparent distress - Head Head exam: Present: atraumatic, normocephalic - Eye Eye exam: Present: normal appearance - ENT ENT exam: Present: mucous membranes moist - Neck Neck exam: Present: normal inspection - Respiratory Respiratory exam: Present: normal lung sounds bilaterally. Absent: respiratory distress - Cardiovascular Cardiovascular Exam: Present: regular rate, normal rhythm. Absent: systolic murmur, diastolic murmur, rubs, gallop - GI/Abdominal GI/Abdominal exam: Present: soft, normal bowel sounds - Extremities Exam Extremities exam: Present: normal inspection, tenderness - Back Exam Back exam: Present: normal inspection, full ROM - Neurological Exam Neurological exam: Present: alert, oriented X3 - Psychiatric Psychiatric exam: Present: normal affect, normal mood - Skin Skin exam: Present: warm, dry, intact, normal color. Absent: rash ED Course Vital Signs 10/05/17 18:37 Temperature 97.8 F Pulse Rate 84 Respiratory 18 Rate Blood Pressure 121/50 O2 Sat by Pulse 96 Oximetry ED Medical Decision Making - Radiology Data Radiology results: report reviewed, image reviewed FINDINGS: No fracture or dislocation is seen. No joint effusion. No focal osseous lesions. IMPRESSION: No fracture Transcribed By: [facility] Dictated By: DEBBIE NAYLOR M.D. Electronically Authenticated By: DEBBIE NAYLOR M.D. Signed Date/Time: 10/05/172222 FINDINGS: No fracture or dislocation is seen. Ankle mortise and talar dome are intact. IMPRESSION: No acute abnormality is identified - Medical Decision Making Patient's been evaluated by this provider fast track. X-rays order for left knee left ankle. Ibuprofen ordered for pain management. Critical care attestation.: If time is entered above; I have spent that time in minutes in the direct care of this critically ill patient, excluding procedure time. ED Disposition Clinical Impression: Ankle pain, left Qualifiers: Chronicity: unspecified Qualified Code(s): M25.572 - Pain in left ankle and joints of left foot Left knee pain Qualifiers: Chronicity: unspecified Qualified Code(s): M25.562 - Pain in left knee Fall Qualifiers: Encounter type: initial encounter Qualified Code(s): W19.XXXA - Unspecified fall, initial encounter Disposition: TO HOME OR SELFCARE Is pt being admited?: No Does the pt Need Aspirin: No Condition: Stable Additional Instructions: Take pain medication as prescribed. Follow up with her primary care provider. Prescriptions: Naproxen [Naprosyn TAB] 500 mg PO BID PRN #20 tablet PRN Reason: Pain Referrals: VAMSI PEDRO MD [Primary Care Provider] - 3-5 Days
--- NOTE | 2017-10-05 22:28 | XRay Report ---
FINAL REPORT PROCEDURE: XR KNEE 3V LT TECHNIQUE: Left knee, three views HISTORY: status post fall left knee pain COMPARISON: No prior studies are available for comparison. FINDINGS: No fracture or dislocation is seen. No joint effusion. No focal osseous lesions. IMPRESSION: No fracture
--- NOTE | 2017-10-05 22:29 | XRay Report ---
FINAL REPORT PROCEDURE: XR ANKLE 2V LT TECHNIQUE: Left ankle, two views HISTORY: status post fall left ankle pain COMPARISON: 09/08/2017 FINDINGS: No fracture or dislocation is seen. Ankle mortise and talar dome are intact. IMPRESSION: No acute abnormality is identified
== END 2017-10-05 23:13 | disposition home or self-care (01) ==
LOC: ED 18:31
DX: M25.562 Pain in left knee (principal); M25.572 Pain in left ankle and joints of left foot; F43.10 Post-traumatic stress disorder, unspecified; F31.9 Bipolar disorder, unspecified; Z90.49 Acquired absence of other specified parts of digestive tract; G89.29 Other chronic pain; Z90.721 Acquired absence of ovaries, unilateral; Z88.5 Allergy status to narcotic agent; W01.0XXA Fall on same level from slipping, tripping and stumbling without subsequent striking against object, initial encounter; Y93.89 Activity, other specified; Y99.8 Other external cause status; Y92.410 Unspecified street and highway as the place of occurrence of the external cause
CPT/HCPCS: 99283

== ENCOUNTER 2017-10-18 18:36 | Emergency (ER) | payer MEDICARE ==
[2017-10-18 18:43] VITALS: BP 126/74
[2017-10-18 19:09] LABS: Basophils # (Auto) 0.1 K/mm3 (0.0-0.1); Basophils % (Auto) 0.9 % (0.0-1.8); Eosinophils # (Auto) 0.2 K/mm3 (0.0-0.4); Eosinophils % (Auto) 2.2 % (0.0-4.3); Hematocrit 38.5 % (30.3-42.9); Hemoglobin 12.5 gm/dl (10.1-14.3); Lymphocytes # (Auto) 2.5 K/mm3 (1.2-5.4); Lymphocytes % (Auto) 31.6 % (13.4-35.0); Mean Corpuscular HGB Conc 33 % (30-34); Mean Corpuscular Hemoglobin 32 pg (28-32); Mean Corpuscular Volume 98 fl (79-97); Monocytes # (Auto) 0.4 K/mm3 (0.0-0.8); Monocytes % (Auto) 5.4 % (0.0-7.3); Platelet Count 261 K/mm3 (140-440); Red Blood Count 3.94 M/mm3 (3.65-5.03); Red Cell Distribution Width 13.6 % (13.2-15.2)
[2017-10-18 19:44] LABS: Alanine Aminotransferase 17 units/L (7-56); Albumin 3.8 g/dL (3.9-5); BUN/Creatinine Ratio 22; Blood Urea Nitrogen 13 mg/dL (7-17); Calcium 9.6 mg/dL (8.4-10.2); Hemolysis Index 6; Lipase 32 units/L (13-60)
[2017-10-18 20:16] LABS: Bacteria,Urine 1+ /HPF (Negative); Bilirubin,Urine NEG (Negative); Blood,Urine NEG (Negative); Color,Urine Yellow (Yellow); Mucus,Urine FEW /HPF; Protein,Urine <15 mg/dL mg/dL (Negative)
[2017-10-18 20:19] LABS: HCG Qualitative,Urine Negative (Negative)
[2017-10-18] MEDS ORDERED: ZOFRAN ODT PO ONE (21:20)
[2017-10-18] MEDS ORDERED: PEPCID PO ONE (21:20)
[2017-10-18] MEDS ORDERED: TORADOL IM ONE (21:20)
[2017-10-18] MEDS ORDERED: ALUM-MAG HYDROX-SIMETH 200-200-20MG/5ML PO ONE (21:20)
--- NOTE | 2017-10-18 21:21 | Emergency Department Report ---
Vomiting/Diarrhea - HPI Chief Complaint: Nausea/Vomiting/Diarrhea Stated Complaint: VOMITTING Time Seen by Provider: 10/18/17 20:59 Duration: Today Severity: moderate Nausea/Vomiting Severity: Mild Diarrhea Severity: Mild Pain Location: Periumbilical Pain Severity: Moderate Symptoms: Yes Able to Tolerate Fluids, No Watery Diarrhea, No Bloody diarrhea, No Fever, No Recent Unusual Foods, No Recent Untreated Water, No Recent use of Antibiotics, No Family w/ Similar Symptoms, No Contacts w/ Similar Symptoms, No Rash, No Hematuria, No Recent URI Symptoms Other History: 42-year-old female past medical history chronic left leg pain, PTSD, bipolar disorder presents with complaint of a few episodes of nausea and vomiting since yesterday. Patient states she ate fast food. States she ate onion rings and felt nauseous almost immediately afterward. Patient denies abdominal pain but states that she still feels slightly nauseous. Has had 4-5 episodes of vomiting earlier today. Also complaining of acute on chronic left knee pain. Patient is ambulatory. Denies fevers or chills. Denies dysuria or increased urinary frequency. ED Review of Systems ROS: Stated complaint: VOMITTING Other details as noted in HPI Constitutional: denies: chills, fever Eyes: denies: eye pain, eye discharge, vision change ENT: denies: ear pain, throat pain Respiratory: denies: cough, shortness of breath, wheezing Cardiovascular: denies: chest pain, palpitations Endocrine: no symptoms reported Gastrointestinal: nausea, vomiting. denies: abdominal pain, diarrhea Genitourinary: denies: urgency, dysuria, discharge Musculoskeletal: as per HPI (chronic left knee.). denies: back pain, joint swelling, arthralgia Skin: denies: rash, lesions Neurological: denies: headache, weakness, paresthesias Psychiatric: denies: anxiety, depression Hematological/Lymphatic: denies: easy bleeding, easy bruising ED Past Medical Hx - Past Medical History Previous Medical History?: Yes Hx Psychiatric Treatment: Yes (PTSD; BIPOLAR; DEPRESSION) Hx Asthma: Yes Additional medical history: Chronic pain, hx of ovarian cancer. - Surgical History Past Surgical History?: Yes Hx Appendectomy: Yes Additional Surgical History: RIGHT KNEE SURGERY. "STRETCHED ESOPHAGUS". RIGHT OVARY REMOVED - Social History Smoking Status: Never Smoker Substance Use Type: Prescribed - Medications Home Medications: Home Medications Medication Instructions Recorded Confirmed Last Taken Type Efinaconazole [Jublia] 8 ml TP DAILY #1 gui.w.appl 03/08/17 Unknown Rx Cyclobenzaprine HCl [Flexeril 5 MG 5 mg PO Q8HR PRN #10 tab 08/14/17 Unknown Rx TAB] traMADol [Ultram 50 MG tab] 50 mg PO Q6HR PRN #7 tablet 08/26/17 Unknown Rx Butalb/Acetamin/Caff 50-325-40 1 tab PO Q6HR PRN #12 tab 08/29/17 Unknown Rx [Fioricet] Ondansetron [Zofran Odt] 4 mg PO Q8HR PRN #12 tab.rapdis 08/29/17 Unknown Rx Ibuprofen [Motrin 800 MG tab] 800 mg PO Q8HR PRN #14 tablet 09/08/17 Unknown Rx Naproxen [Naprosyn TAB] 500 mg PO BID PRN #20 tablet 10/05/17 Unknown Rx Acetaminophen [Acetaminophen TAB] 500 mg PO Q6HR PRN #15 tablet 10/18/17 Unknown Rx Bismuth Subsalicylate 10 ml PO Q6H PRN #1 oral.susp 10/18/17 Unknown Rx [Pepto-Bismol] Famotidine [Pepcid] 20 mg PO BID PRN #30 tablet 10/18/17 Unknown Rx Ondansetron [Zofran Odt] 4 mg PO Q8HR PRN #10 tab.rapdis 10/18/17 Unknown Rx Sulfamethoxazole/Trimethoprim 1 each PO BID #6 tablet 10/18/17 Unknown Rx [Bactrim DS TAB] Vomiting Diarrhea Exam - Exam General: Vital signs noted. No distress. Alert and acting appropriately. HEENT: Yes Moist Mucous Membranes, No Pharyngeal Erythema, No Pharyngeal Exudates, No Rhinorrhea, No Conjuctival Injection, No Frontal Tenderness, No Maxillary Tenderness Neck: No Adenopathy, No Rigidity Lungs: Yes Clear Lung Sounds (lungs clear to auscultation bilaterally), Yes Good Air Exchange, No Wheezes, No Stridor, No Cough, No Nasal Flaring, No Retractions, No Use of Accessory Muscles Heart exam: Regular: Yes, Murmur: No, Tachycardia: No Abdomen: Tenderness: No (abdomen soft nontender nondistended, no flank pain), Peritoneal Signs: No, Distention: No, Hyperactive Bowel sounds: No Skin exam: Rash: No, Edema: No, Normal turgor: Yes Neurologic: Alert and oriented, no deficits. Musculoskeletal: Unremarkable. ED Course Vital Signs 10/18/17 18:39 Temperature 98.6 F Pulse Rate 82 Respiratory 18 Rate Blood Pressure 126/74 O2 Sat by Pulse 97 Oximetry ED Medical Decision Making - Lab Data Result diagrams: 10/18/17 18:49 10/18/17 18:49 - Medical Decision Making A/P: Gastroenteritis, possible UTI 1-Zofran when necessary, Pepcid when necessary, Pepto-Bismol when necessary 2-labs are unremarkable. Urinalysis shows moderate leukocyte esterase. although asymptomatic will treat patient empirically with a course of Bactrim. Urine culture sent 3-Jerry wrap to left knee, follow-up with primary care 4- vital signs stable for discharge Critical care attestation.: If time is entered above; I have spent that time in minutes in the direct care of this critically ill patient, excluding procedure time. ED Disposition Clinical Impression: Gastroenteritis UTI (urinary tract infection) Qualifiers: Urinary tract infection type: site unspecified Hematuria presence: without hematuria Qualified Code(s): N39.0 - Urinary tract infection, site not specified Disposition: - TO HOME OR SELFCARE Is pt being admited?: No Does the pt Need Aspirin: No Condition: Stable Instructions: Gastroenteritis (ED), Acute Nausea and Vomiting (ED) Prescriptions: Acetaminophen [Acetaminophen TAB] 500 mg PO Q6HR PRN #15 tablet PRN Reason: Pain Bismuth Subsalicylate [Pepto-Bismol] 10 ml PO Q6H PRN #1 oral.susp PRN Reason: Indigestion Famotidine [Pepcid] 20 mg PO BID PRN #30 tablet PRN Reason: Indigestion Ondansetron [Zofran Odt] 4 mg PO Q8HR PRN #10 tab.rapdis PRN Reason: Nausea Sulfamethoxazole/Trimethoprim [Bactrim DS TAB] 1 each PO BID #6 tablet Referrals: [facility] [Provider Group] - 3-5 Days Time of Disposition: 22:12
== END 2017-10-18 22:22 | disposition home or self-care (01) ==
LOC: ED 18:36
DX: K52.9 Noninfective gastroenteritis and colitis, unspecified (principal); N39.0 Urinary tract infection, site not specified; M25.562 Pain in left knee; G89.29 Other chronic pain; F31.9 Bipolar disorder, unspecified; F43.10 Post-traumatic stress disorder, unspecified; J45.909 Unspecified asthma, uncomplicated; Z85.43 Personal history of malignant neoplasm of ovary; Z90.49 Acquired absence of other specified parts of digestive tract; Z90.721 Acquired absence of ovaries, unilateral; Z88.5 Allergy status to narcotic agent
CPT/HCPCS: 36415; 80053; 81001; 81025; 83690; 85025; 87086; 96372; 99283; J1885; Q0162

== ENCOUNTER 2017-10-20 21:47 | Emergency (ER) | payer MEDICARE ==
--- NOTE | 2017-10-20 23:43 | XRay Report ---
FINAL REPORT PROCEDURE: XR ANKLE 2V LT TECHNIQUE: LEFT ankle radiographs, AP, lateral, and oblique views. CPT 80859 HISTORY: leg injury COMPARISON: No prior studies are available for comparison. FINDINGS: Fracture (s) and/or Dislocation(s): None. Alignment: Normal. Joint space(s): Normal. Soft tissues: Normal. Bone mineralization: Normal. Foreign bodies: None. Calcaneal spurring: None. IMPRESSION: Normal Examination.
--- NOTE | 2017-10-20 23:43 | XRay Report ---
FINAL REPORT PROCEDURE: XR TIBIA FIBULA 2V LT TECHNIQUE: LEFT tibia and fibula radiographs, AP and lateral views. CPT 49236 HISTORY: leg injury COMPARISON: No prior studies are available for comparison. FINDINGS: Fracture (s) and/or Dislocation(s): None . Joint space(s): Normal . Soft tissues: Normal . Bone mineralization: Normal . Foreign bodies: None . IMPRESSION: Normal Examination.
--- NOTE | 2017-10-20 23:45 | XRay Report ---
FINAL REPORT PROCEDURE: XR KNEE 3V LT TECHNIQUE: LEFT knee radiographs, AP, lateral and sunrise views. CPT 94844 HISTORY: leg injury COMPARISON: No prior studies are available for comparison. FINDINGS: Fracture (s) and/or Dislocation(s): None . Alignment: Normal . Joint space(s): Mild degenerative changes medial compartment with slight spurring. Soft tissues: Normal . Bone mineralization: Normal . Foreign bodies: None . IMPRESSION: No fracture seen.
[2017-10-21] MEDS ORDERED: TYLENOL ONE (03:18)
[2017-10-21] MEDS ORDERED: TYLENOL PO ONE (03:20)
[2017-10-21 04:05] VITALS: BP 120/76
--- NOTE | 2017-10-21 04:47 | Emergency Department Report ---
ED Fall HPI - General Chief Complaint: Extremity Injury, Lower Stated Complaint: LT LEG NUMBNESS Time Seen by Provider: 10/21/17 04:33 Source: patient Mode of arrival: Ambulatory - History of Present Illness Initial Comments: 42-year-old female with multiple ER visits for left leg pain. Patient reports that she had fallen today at about 4 PM and has come in to be evaluated. Patient reports that her left ankle is sore and difficulty to bear weight. Patient denies any fever or chills no nausea no vomiting no dizziness no headache. MD Complaint: fall - Related Data Previous Rx's Medication Instructions Recorded Last Taken Type Efinaconazole [Jublia] 8 ml TP DAILY #1 gui.w.appl 03/08/17 Unknown Rx Cyclobenzaprine HCl [Flexeril 5 MG 5 mg PO Q8HR PRN #10 tab 08/14/17 Unknown Rx TAB] traMADol [Ultram 50 MG tab] 50 mg PO Q6HR PRN #7 tablet 08/26/17 Unknown Rx Butalb/Acetamin/Caff 50-325-40 1 tab PO Q6HR PRN #12 tab 08/29/17 Unknown Rx [Fioricet] Ondansetron [Zofran Odt] 4 mg PO Q8HR PRN #12 tab.rapdis 08/29/17 Unknown Rx Ibuprofen [Motrin 800 MG tab] 800 mg PO Q8HR PRN #14 tablet 09/08/17 Unknown Rx Naproxen [Naprosyn TAB] 500 mg PO BID PRN #20 tablet 10/05/17 Unknown Rx Acetaminophen [Acetaminophen TAB] 500 mg PO Q6HR PRN #15 tablet 10/18/17 Unknown Rx Bismuth Subsalicylate 10 ml PO Q6H PRN #1 oral.susp 10/18/17 Unknown Rx [Pepto-Bismol] Famotidine [Pepcid] 20 mg PO BID PRN #30 tablet 10/18/17 Unknown Rx Ondansetron [Zofran Odt] 4 mg PO Q8HR PRN #10 tab.rapdis 10/18/17 Unknown Rx Sulfamethoxazole/Trimethoprim 1 each PO BID #6 tablet 10/18/17 Unknown Rx [Bactrim DS TAB] Allergies Allergy/AdvReac Type Severity Reaction Status Date / Time codeine AdvReac Intermediate Vomiting Verified 10/05/17 18:37 ED Review of Systems ROS: Stated complaint: LT LEG NUMBNESS Other details as noted in HPI ED Past Medical Hx - Past Medical History Hx Psychiatric Treatment: Yes (PTSD; BIPOLAR; DEPRESSION) Hx Asthma: Yes Additional medical history: Chronic pain, hx of ovarian cancer. - Surgical History Hx Appendectomy: Yes Additional Surgical History: RIGHT KNEE SURGERY. "STRETCHED ESOPHAGUS". RIGHT OVARY REMOVED - Social History Smoking Status: Never Smoker Substance Use Type: None - Medications Home Medications: Home Medications Medication Instructions Recorded Confirmed Last Taken Type Efinaconazole [Jublia] 8 ml TP DAILY #1 gui.w.appl 03/08/17 Unknown Rx Cyclobenzaprine HCl [Flexeril 5 MG 5 mg PO Q8HR PRN #10 tab 08/14/17 Unknown Rx TAB] traMADol [Ultram 50 MG tab] 50 mg PO Q6HR PRN #7 tablet 08/26/17 Unknown Rx Butalb/Acetamin/Caff 50-325-40 1 tab PO Q6HR PRN #12 tab 08/29/17 Unknown Rx [Fioricet] Ondansetron [Zofran Odt] 4 mg PO Q8HR PRN #12 tab.rapdis 08/29/17 Unknown Rx Ibuprofen [Motrin 800 MG tab] 800 mg PO Q8HR PRN #14 tablet 09/08/17 Unknown Rx Naproxen [Naprosyn TAB] 500 mg PO BID PRN #20 tablet 10/05/17 Unknown Rx Acetaminophen [Acetaminophen TAB] 500 mg PO Q6HR PRN #15 tablet 10/18/17 Unknown Rx Bismuth Subsalicylate 10 ml PO Q6H PRN #1 oral.susp 10/18/17 Unknown Rx [Pepto-Bismol] Famotidine [Pepcid] 20 mg PO BID PRN #30 tablet 10/18/17 Unknown Rx Ondansetron [Zofran Odt] 4 mg PO Q8HR PRN #10 tab.rapdis 10/18/17 Unknown Rx Sulfamethoxazole/Trimethoprim 1 each PO BID #6 tablet 10/18/17 Unknown Rx [Bactrim DS TAB] ED Physical Exam - General Limitations: No Limitations General appearance: alert, in no apparent distress - Head Head exam: Present: atraumatic, normocephalic - Expanded Lower Extremity Exam Left Hip exam: Present: normal inspection, full ROM Upper Leg exam: Present: normal inspection, full ROM Knee exam: Present: full ROM, abrasion (small abrasion). Absent: tenderness Lower Leg exam: Present: normal inspection, full ROM. Absent: tenderness Ankle exam: Present: full ROM, tenderness. Absent: swelling, ecchymosis, deformity Foot/Toe exam: Present: normal inspection, full ROM. Absent: tenderness - Neurological Exam Neurological exam: Present: alert, oriented X3 ED Course Vital Signs 10/20/17 10/21/17 10/21/17 21:55 03:21 04:04 Temperature 98 F Pulse Rate 83 80 Respiratory 16 18 18 Rate Blood Pressure 121/80 Blood Pressure 120/76 [Left] O2 Sat by Pulse 96 97 Oximetry ED Medical Decision Making - Radiology Data Radiology results: report reviewed All x-rays show normal examination. Of her left knee left tib-fib and left ankle. - Medical Decision Making Patient has had multiple ER visits for left ankle pain. Patient was most recently seen on 10/15/2017 and was given a prescription for ibuprofen 800 mg 90 tablets. I discussed with patient that her x-rays are negative for any acute fractures or dislocations. I discussed the patient she needs to take her pain medication that she has at home. I also stressed that she needs to follow up with a primary care provider as she has multiple ER visits that can be handled by a primary care provider. Critical care attestation.: If time is entered above; I have spent that time in minutes in the direct care of this critically ill patient, excluding procedure time. ED Disposition Clinical Impression: Chronic pain of left ankle Fall Qualifiers: Encounter type: initial encounter Qualified Code(s): W19.XXXA - Unspecified fall, initial encounter Disposition: TO HOME OR SELFCARE Is pt being admited?: No Does the pt Need Aspirin: No Condition: Stable Additional Instructions: Please take your pain medication that has been prescribed to you on 10/15/17 of ibuprofen. Please follow-up with her primary care provider for further evaluation or why you're having these falls. Referrals: PRIMARY CARE, [Primary Care Provider] - 3-5 Days
== END 2017-10-21 04:50 | disposition home or self-care (01) ==
LOC: ED 21:47
DX: M25.572 Pain in left ankle and joints of left foot (principal); G89.29 Other chronic pain; J45.909 Unspecified asthma, uncomplicated

== ENCOUNTER 2017-11-04 20:38 | Emergency (ER) | payer MEDICARE ==
[2017-11-04 22:03] VITALS: BP 118/62
--- NOTE | 2017-11-05 00:17 | XRay Report ---
FINAL REPORT PROCEDURE: XR ANKLE 3+V LT TECHNIQUE: LEFT ankle radiographs, AP, lateral, and oblique views. CPT 49522 HISTORY: pain and swelling L knee/ankle s/p fall x2 COMPARISON: 10/20/2017 FINDINGS: Fracture (s) and/or Dislocation(s): None. Alignment: Normal. Joint space(s): Normal. Soft tissues: Normal. Bone mineralization: Normal. Foreign bodies: None. Calcaneal spurring: None. IMPRESSION: Normal Examination.
[2017-11-05 00:43] LABS: HCG Qualitative,Urine Negative (Negative)
[2017-11-05] MEDS ORDERED: TYLENOL PO ONE (00:58)
[2017-11-05] MEDS ORDERED: MOTRIN PO ONE (00:58)
--- NOTE | 2017-11-05 00:59 | Emergency Department Report ---
ED General Adult HPI - General Chief complaint: Extremity Injury, Lower Stated complaint: LEFT ANKLE SWELLING BURN Time Seen by Provider: 11/05/17 00:25 Source: patient, RN notes reviewed, old records reviewed Mode of arrival: Ambulatory Limitations: No Limitations - History of Present Illness Initial comments: This is a 42-year-old female who is previously unknown to this provider who presents to the ER with complaint of left medial ankle pain and left anterior knee pain after mechanical fall. Patient denies headache, neck pain, chest pain , abdominal pain, shortness of breath, weakness, numbness, unsteady gait. Her pain is sharp, increases with palpation, it decreases with rest. It does not radiate anywhere. She also requests a refill on her albuterol. She is not wheezing or coughing episode. -: Sudden Location: left, lower extremity Radiation: non-radiation Quality: aching Consistency: intermittent Improves with: rest Worsens with: movement Associated Symptoms: denies: confusion, chest pain, cough, diaphoresis, fever/ chills, headaches, loss of appetite, malaise, nausea/vomiting, rash, seizure, shortness of breath, syncope, weakness - Related Data Previous Rx's Medication Instructions Recorded Last Taken Type Efinaconazole [Jublia] 8 ml TP DAILY #1 gui.w.appl 03/08/17 Unknown Rx Cyclobenzaprine HCl [Flexeril 5 MG 5 mg PO Q8HR PRN #10 tab 08/14/17 Unknown Rx TAB] traMADol [Ultram 50 MG tab] 50 mg PO Q6HR PRN #7 tablet 08/26/17 Unknown Rx Butalb/Acetamin/Caff 50-325-40 1 tab PO Q6HR PRN #12 tab 08/29/17 Unknown Rx [Fioricet] Ondansetron [Zofran Odt] 4 mg PO Q8HR PRN #12 tab.rapdis 08/29/17 Unknown Rx Ibuprofen [Motrin 800 MG tab] 800 mg PO Q8HR PRN #14 tablet 09/08/17 Unknown Rx Naproxen [Naprosyn TAB] 500 mg PO BID PRN #20 tablet 10/05/17 Unknown Rx Acetaminophen [Acetaminophen TAB] 500 mg PO Q6HR PRN #15 tablet 10/18/17 Unknown Rx Bismuth Subsalicylate 10 ml PO Q6H PRN #1 oral.susp 10/18/17 Unknown Rx [Pepto-Bismol] Famotidine [Pepcid] 20 mg PO BID PRN #30 tablet 10/18/17 Unknown Rx Ondansetron [Zofran Odt] 4 mg PO Q8HR PRN #10 tab.rapdis 10/18/17 Unknown Rx Sulfamethoxazole/Trimethoprim 1 each PO BID #6 tablet 10/18/17 Unknown Rx [Bactrim DS TAB] Acetaminophen [Tylenol Arthritis] 650 mg PO Q6HR PRN #30 tablet.er 11/05/17 Unknown Rx Albuterol Sulfate [Proair 90 mcg IH Q4HR PRN #2 aer.pow.ba 11/05/17 Unknown Rx Respiclick] Ibuprofen [Motrin] 600 mg PO Q8H PRN #30 tablet 11/05/17 Unknown Rx Allergies Allergy/AdvReac Type Severity Reaction Status Date / Time codeine AdvReac Intermediate Vomiting Verified 10/05/17 18:37 ED Review of Systems ROS: Stated complaint: LEFT ANKLE SWELLING BURN Other details as noted in HPI Comment: All other systems reviewed and negative ED Past Medical Hx - Past Medical History Previous Medical History?: Yes Hx Psychiatric Treatment: Yes (PTSD; BIPOLAR; DEPRESSION) Hx Asthma: Yes Additional medical history: Chronic pain, hx of ovarian cancer. - Surgical History Past Surgical History?: Yes Hx Appendectomy: Yes Additional Surgical History: RIGHT KNEE SURGERY. "STRETCHED ESOPHAGUS". RIGHT OVARY REMOVED - Social History Smoking Status: Never Smoker Substance Use Type: None - Medications Home Medications: Home Medications Medication Instructions Recorded Confirmed Last Taken Type Efinaconazole [Jublia] 8 ml TP DAILY #1 gui.w.appl 03/08/17 Unknown Rx Cyclobenzaprine HCl [Flexeril 5 MG 5 mg PO Q8HR PRN #10 tab 08/14/17 Unknown Rx TAB] traMADol [Ultram 50 MG tab] 50 mg PO Q6HR PRN #7 tablet 08/26/17 Unknown Rx Butalb/Acetamin/Caff 50-325-40 1 tab PO Q6HR PRN #12 tab 08/29/17 Unknown Rx [Fioricet] Ondansetron [Zofran Odt] 4 mg PO Q8HR PRN #12 tab.rapdis 08/29/17 Unknown Rx Ibuprofen [Motrin 800 MG tab] 800 mg PO Q8HR PRN #14 tablet 09/08/17 Unknown Rx Naproxen [Naprosyn TAB] 500 mg PO BID PRN #20 tablet 10/05/17 Unknown Rx Acetaminophen [Acetaminophen TAB] 500 mg PO Q6HR PRN #15 tablet 10/18/17 Unknown Rx Bismuth Subsalicylate 10 ml PO Q6H PRN #1 oral.susp 10/18/17 Unknown Rx [Pepto-Bismol] Famotidine [Pepcid] 20 mg PO BID PRN #30 tablet 10/18/17 Unknown Rx Ondansetron [Zofran Odt] 4 mg PO Q8HR PRN #10 tab.rapdis 10/18/17 Unknown Rx Sulfamethoxazole/Trimethoprim 1 each PO BID #6 tablet 10/18/17 Unknown Rx [Bactrim DS TAB] Acetaminophen [Tylenol Arthritis] 650 mg PO Q6HR PRN #30 tablet.er 11/05/17 Unknown Rx Albuterol Sulfate [Proair 90 mcg IH Q4HR PRN #2 aer.pow.ba 11/05/17 Unknown Rx Respiclick] Ibuprofen [Motrin] 600 mg PO Q8H PRN #30 tablet 11/05/17 Unknown Rx ED Physical Exam - General Limitations: Physical Limitation General appearance: alert, in no apparent distress - Head Head exam: Present: atraumatic, normocephalic - Eye Eye exam: Present: normal appearance, EOMI. Absent: nystagmus - ENT ENT exam: Present: normal exam, normal orophraynx, mucous membranes moist, normal external ear exam - Neck Neck exam: Present: normal inspection, full ROM. Absent: tenderness, meningismus - Respiratory Respiratory exam: Present: normal lung sounds bilaterally. Absent: respiratory distress, wheezes, rales, rhonchi, stridor, chest wall tenderness - Cardiovascular Cardiovascular Exam: Present: regular rate, normal rhythm, normal heart sounds. Absent: bradycardia, tachycardia, irregular rhythm, systolic murmur, diastolic murmur, rubs, gallop - GI/Abdominal GI/Abdominal exam: Present: soft, normal bowel sounds. Absent: distended, tenderness, guarding, rebound, rigid, pulsatile mass - Extremities Exam Extremities exam: Present: normal inspection, full ROM, normal capillary refill , other (the pelvis is stable. There is no long bony tenderness. There is no ligamentous instability to the bilateral lower ankles or bilateral knees. The compartments are soft.). Absent: tenderness, pedal edema, joint swelling, calf tenderness - Back Exam Back exam: Present: normal inspection, full ROM. Absent: tenderness, CVA tenderness (R), paraspinal tenderness, vertebral tenderness - Neurological Exam Neurological exam: Present: alert, oriented X3, CN II-XII intact, other ( Extraocular movements intact. Tongue midline. No facial droop. Facial sensation intact to light touch in the V1, V2, V3 distribution bilaterally. 5 and 5 strength in 4 extremities.. Sensation is intact to light touch in 4 extremities.). Absent: motor sensory deficit - Psychiatric Psychiatric exam: Present: normal affect, normal mood - Skin Skin exam: Present: warm, dry, intact, normal color. Absent: rash ED Course Vital Signs 11/04/17 21:57 Temperature 98.2 F Pulse Rate 72 Respiratory 20 Rate Blood Pressure 118/62 O2 Sat by Pulse 97 Oximetry ED Medical Decision Making - Lab Data Vital Signs 11/04/17 21:57 Temperature 98.2 F Pulse Rate 72 Respiratory 20 Rate Blood Pressure 118/62 O2 Sat by Pulse 97 Oximetry - Radiology Data Radiology results: report reviewed, image reviewed X-ray the left ankle is negative for acute disease. X-ray left knee is negative for acute disease - Medical Decision Making Differential diagnosis, including but not limited to: Sprain, strain, mechanical fall, medication refill Assessment and plan: 42-year-old female With complaint of recurrent fall, clinically sober, GCS of 15, with an anion score of 0.Patient is clinically sober at this time. The cervical spine is cleared through nexus and nam[place] c spine rule Physical exam unremarkable. X-rays show no fracture or dislocation. She can be made weightbearing as tolerated with crutches, she will be given nonnarcotic pain medication, albuterol refill her request she can follow up with outpatient orthopedics. There is no clinical indication of fracture, dislocation, or compartment syndrome at this time. Critical care attestation.: If time is entered above; I have spent that time in minutes in the direct care of this critically ill patient, excluding procedure time. ED Disposition Clinical Impression: Left leg pain, History of fall Disposition: TO HOME OR SELFCARE Is pt being admited?: No Does the pt Need Aspirin: No Condition: Stable Instructions: Arthralgia (ED) Additional Instructions: Take pain medications as needed/directed. Engage in weightbearing as tolerated. Follow up with primary care doctor or orthopedist within the next 2 weeks. Return to the ER right away with the pain, worsening pain, migration of pain, fevers, chills, lethargy, irritability, projectile vomiting, change in mental status, confusion, inability to tolerate liquid feedings. Referrals: PRIMARY CAREMD [Primary Care Provider] - 3-5 Days THIAGO FERGUSON MD [Staff Physician] - 3-5 Days
--- NOTE | 2017-11-05 08:59 | XRay Report ---
FINAL REPORT EXAM: XR KNEE 1-2V LT HISTORY: left knee pain s/p fall TECHNIQUE: AP and lateral views of the left knee were submitted and compared to the study of 10/05/2017. FINDINGS: All 3 compartments are well maintained. There is no evidence of fracture or joint effusion. IMPRESSION: Within normal limits.
== END 2017-11-05 02:31 | disposition home or self-care (01) ==
LOC: ED 20:38
DX: M25.562 Pain in left knee (principal); M25.572 Pain in left ankle and joints of left foot; Z88.6 Allergy status to analgesic agent
CPT/HCPCS: 81025; 99284

== ENCOUNTER 2017-12-01 19:00 | Emergency (ER) | payer MEDICARE ==
[2017-12-01 19:41] VITALS: BP 112/65
[2017-12-01] MEDS ORDERED: ASPIRIN PO ONE (19:41)
[2017-12-01 20:32] LABS: Basophils % (Auto) 0.6 % (0.0-1.8); Bilirubin,Urine NEG (Negative); Blood,Urine NEG (Negative); Color,Urine Yellow (Yellow); Eosinophils # (Auto) 0.1 K/mm3 (0.0-0.4); Eosinophils % (Auto) 2.3 % (0.0-4.3); Hematocrit 39.6 % (30.3-42.9); Hemoglobin 13.2 gm/dl (10.1-14.3); Lymphocytes # (Auto) 1.7 K/mm3 (1.2-5.4); Lymphocytes % (Auto) 27.8 % (13.4-35.0); Mean Corpuscular HGB Conc 33 % (30-34); Mean Corpuscular Hemoglobin 33 pg (28-32); Mean Corpuscular Volume 98 fl (79-97); Monocytes # (Auto) 0.3 K/mm3 (0.0-0.8); Monocytes % (Auto) 5.2 % (0.0-7.3); Mucus,Urine FEW /HPF; Platelet Count 256 K/mm3 (140-440); Protein,Urine <15 mg/dL mg/dL (Negative); RBC,Urine < 1.0 /HPF (0.0-6.0); Red Blood Count 4.04 M/mm3 (3.65-5.03); Red Cell Distribution Width 12.6 % (13.2-15.2); Urobilinogen,Urine < 2.0 mg/dL (<2.0); WBC,Urine < 1.0 /HPF (0.0-6.0)
[2017-12-01 20:45] LABS: BUN/Creatinine Ratio 15; Blood Urea Nitrogen 9 mg/dL (7-17); Calcium 9.5 mg/dL (8.4-10.2); Hemolysis Index 33
--- NOTE | 2017-12-01 21:31 | XRay Report ---
FINAL REPORT EXAM: XR CHEST ROUTINE 2V HISTORY: syncopy episode TECHNIQUE: Two views of the chest Comparison: None FINDINGS: Normal heart size. Lungs are well expanded without focal infiltrate or consolidation. No effusion. Imaged axial skeleton demonstrates minimal degenerative spondylitic change. IMPRESSION: No acute cardiopulmonary disease.
== END 2017-12-01 20:00 | disposition left against medical advice (07) ==
LOC: ED 19:00
DX: R07.9 Chest pain, unspecified (principal); Z53.21 Procedure and treatment not carried out due to patient leaving prior to being seen by health care provider
CPT/HCPCS: 36415; 71046; 80048; 81001; 84484; 85025; 93005; 93010

== ENCOUNTER 2017-12-08 19:39 | Emergency (ER) | payer MEDICARE ==
[2017-12-08 19:56] VITALS: BP 128/85
[2017-12-08 20:19] LABS: Basophils # (Auto) 0.1 K/mm3 (0.0-0.1); Basophils % (Auto) 0.9 % (0.0-1.8); Eosinophils # (Auto) 0.2 K/mm3 (0.0-0.4); Eosinophils % (Auto) 2.7 % (0.0-4.3); Hematocrit 38.6 % (30.3-42.9); Hemoglobin 13.1 gm/dl (10.1-14.3); Lymphocytes # (Auto) 2.2 K/mm3 (1.2-5.4); Lymphocytes % (Auto) 31.9 % (13.4-35.0); Mean Corpuscular HGB Conc 34 % (30-34); Mean Corpuscular Hemoglobin 32 pg (28-32); Mean Corpuscular Volume 95 fl (79-97); Monocytes # (Auto) 0.4 K/mm3 (0.0-0.8); Monocytes % (Auto) 5.6 % (0.0-7.3); Platelet Count 285 K/mm3 (140-440); Red Blood Count 4.05 M/mm3 (3.65-5.03); Red Cell Distribution Width 12.5 % (13.2-15.2)
[2017-12-08 21:12] LABS: Bilirubin,Urine NEG (Negative); Blood,Urine SM (Negative); Color,Urine Yellow (Yellow); Mucus,Urine FEW /HPF; Protein,Urine <15 mg/dL mg/dL (Negative); Urobilinogen,Urine < 2.0 mg/dL (<2.0)
[2017-12-08 21:16] LABS: HCG Qualitative,Urine Negative (Negative)
== END 2017-12-08 21:47 | disposition left against medical advice (07) ==
LOC: ED 19:39
DX: M79.602 Pain in left arm (principal); Z53.21 Procedure and treatment not carried out due to patient leaving prior to being seen by health care provider
CPT/HCPCS: 36415; 81001; 81025; 84702; 85025; 86850; 86900; 86901

== ENCOUNTER 2017-12-25 21:34 | Emergency (ER) | payer MEDICARE ==
[2017-12-25 21:40] VITALS: BP 118/55
[2017-12-25] MEDS ORDERED: TORADOL IM ONE (23:38)
--- NOTE | 2017-12-25 23:39 | XRay Report ---
FINAL REPORT PROCEDURE: Two-view left knee series TECHNIQUE: Left knee radiographs, AP and lateral views. HISTORY: left knee pain COMPARISON: Prior study 11/05/2017 FINDINGS: No evidence of fracture, dislocation or joint effusion. Minimal marginal osteophytic spur seen at the patellar femoral joint space consistent with minimal osteoarthritis. No other abnormalities are seen. IMPRESSION: Minimal osteoarthritic changes patellar femoral joint space otherwise negative exam
--- NOTE | 2017-12-25 23:40 | XRay Report ---
FINAL REPORT PROCEDURE: XR ANKLE 2V LT TECHNIQUE: Left ankle radiographs, AP and lateral views. CPT 05033 HISTORY: left ankle pain COMPARISON: Prior study 11/04/2017 FINDINGS: Fracture (s) and/or Dislocation(s): None . Alignment: Normal . Joint space(s): Normal . Soft tissues: Normal . Bone mineralization: Normal . Foreign bodies: None . Calcaneal spurring: Minimal calcaneal spur seen at the Achilles tendon insertion site.. IMPRESSION: Minimal calcaneal spur otherwise negative exam. No acute abnormalities are identified..
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
== END 2017-12-26 00:20 | disposition home or self-care (01) ==
LOC: ED 21:34
DX: M25.562 Pain in left knee (principal); M25.572 Pain in left ankle and joints of left foot; J45.909 Unspecified asthma, uncomplicated; V89.2XXA Person injured in unspecified motor-vehicle accident, traffic, initial encounter; Y93.89 Activity, other specified; Y92.89 Other specified places as the place of occurrence of the external cause; Y99.8 Other external cause status
CPT/HCPCS: 73562; 73600; 96372; 99284; J1885

== ENCOUNTER 2018-09-14 18:12 | Emergency (ER) | payer MEDICARE ==
--- NOTE | 2018-09-14 18:44 | Emergency Department Report ---
Blank Doc - Documentation Documentation: This is a 43-year-old female that presents with midsterum chest pain. Denies any radiation. Denies any SOB. This initial assessment/diagnostic orders/clinical plan/treatment(s) is/are subject to change based on patient's health status, clinical progression and re- assessment by fellow clinical providers in the ED. Further treatment and workup at subsequent clinical providers discretion. Patient/guardians urged not to elope from the ED as their condition may be serious if not clinically assessed and managed. Initial orders include: 1- Patient sent to [facility] for further evaluation and treatment 2- labs 3- CXR
[2018-09-14 18:46] VITALS: BP 118/61
== END 2018-09-14 18:45 | disposition left against medical advice (07) ==
LOC: ED 18:12
DX: R07.9 Chest pain, unspecified (principal); Z53.21 Procedure and treatment not carried out due to patient leaving prior to being seen by health care provider
CPT/HCPCS: 93005; 93010

== ENCOUNTER 2018-09-17 21:00 | Emergency (ER) | payer MEDICARE ==
[2018-09-17 21:16] VITALS: BP 119/75
--- NOTE | 2018-09-17 21:24 | Emergency Department Report ---
ED Rash HPI - HPI Chief Complaint: Allergic Reaction Stated Complaint: RASH ON RIGHT ARM Time Seen by Provider: 09/17/18 21:20 Duration: 1 Day Location: Upper Extremities Suspected Cause: Unknown Rash Symptoms: Yes Itching, No Facial Swelling, No Tongue/Oral Swelling, No Breathing Difficulties, No Choking Sensation, No Wheezing/Dyspnea, No Peeling, No Blistering, No Fever, No Lightheaded, No Malaise, No Myalgias Severity: mild Other History: 43 y/o female presents to ED c/o pruritic rash to right arm with redness. no fever or pain. Lives with lange infestation too. ED Review of Systems ROS: Stated complaint: RASH ON RIGHT ARM Other details as noted in HPI ED Past Medical Hx - Past Medical History Hx Psychiatric Treatment: Yes (PTSD; BIPOLAR; DEPRESSION) Hx Asthma: Yes Additional medical history: Chronic pain, hx of ovarian cancer. - Surgical History Hx Appendectomy: Yes Additional Surgical History: RIGHT KNEE SURGERY. "STRETCHED ESOPHAGUS". RIGHT OVARY REMOVED - Social History Smoking Status: Never Smoker Substance Use Type: None - Medications Home Medications: Home Medications Medication Instructions Recorded Confirmed Last Taken Type Efinaconazole [Jublia] 8 ml TP DAILY #1 gui.w.appl 03/08/17 Unknown Rx Cyclobenzaprine HCl [Flexeril 5 MG 5 mg PO Q8HR PRN #10 tab 08/14/17 Unknown Rx TAB] traMADol [Ultram 50 MG tab] 50 mg PO Q6HR PRN #7 tablet 08/26/17 Unknown Rx Butalb/Acetamin/Caff 50-325-40 1 tab PO Q6HR PRN #12 tab 08/29/17 Unknown Rx [Fioricet] Ondansetron [Zofran Odt] 4 mg PO Q8HR PRN #12 tab.rapdis 08/29/17 Unknown Rx Ibuprofen [Motrin 800 MG tab] 800 mg PO Q8HR PRN #14 tablet 09/08/17 Unknown Rx Naproxen [Naprosyn TAB] 500 mg PO BID PRN #20 tablet 10/05/17 Unknown Rx Acetaminophen [Acetaminophen TAB] 500 mg PO Q6HR PRN #15 tablet 10/18/17 Unknown Rx Bismuth Subsalicylate 10 ml PO Q6H PRN #1 oral.susp 10/18/17 Unknown Rx [Pepto-Bismol] Famotidine [Pepcid] 20 mg PO BID PRN #30 tablet 10/18/17 Unknown Rx Ondansetron [Zofran Odt] 4 mg PO Q8HR PRN #10 tab.rapdis 10/18/17 Unknown Rx Sulfamethoxazole/Trimethoprim 1 each PO BID #6 tablet 10/18/17 Unknown Rx [Bactrim DS TAB] Acetaminophen [Tylenol Arthritis] 650 mg PO Q6HR PRN #30 tablet.er 11/05/17 Unknown Rx Albuterol Sulfate [Proair 90 mcg IH Q4HR PRN #2 aer.pow.ba 11/05/17 Unknown Rx Respiclick] Ibuprofen [Motrin] 600 mg PO Q8H PRN #30 tablet 11/05/17 Unknown Rx Ibuprofen [Motrin] 800 mg PO Q8HR PRN #15 tablet 12/25/17 Unknown Rx traMADol [Ultram 50 MG tab] 50 mg PO Q6HR PRN #15 tablet 12/25/17 Unknown Rx Ibuprofen [Motrin] 600 mg PO Q8H PRN #20 tablet 04/04/18 Unknown Rx Permethrin [Elimite] 60 gm TP ONCE #1 cream..g. 09/17/18 Unknown Rx hydrOXYzine HCL [Atarax] 25 mg PO Q6HR PRN #20 tablet 09/17/18 Unknown Rx Rash Exam - Exam General: Vital signs noted. No distress. Alert and acting appropriately. ED Course Vital Signs 09/17/18 21:14 Temperature 98.2 F Pulse Rate 78 Respiratory 18 Rate Blood Pressure 119/75 O2 Sat by Pulse 97 Oximetry Critical care attestation.: If time is entered above; I have spent that time in minutes in the direct care of this critically ill patient, excluding procedure time. ED Disposition Clinical Impression: Scabies Disposition: DC-01 TO HOME OR SELFCARE Is pt being admited?: No Does the pt Need Aspirin: No Condition: Stable Instructions: Scabies (ED)
== END 2018-09-17 21:30 | disposition home or self-care (01) ==
LOC: ED 21:00
DX: B86 Scabies (principal); J45.909 Unspecified asthma, uncomplicated; F31.9 Bipolar disorder, unspecified
CPT/HCPCS: 99282

== ENCOUNTER 2018-09-19 01:43 | Emergency (ER) | payer MEDICARE ==
[2018-09-19 01:49] VITALS: BP 135/45
== END 2018-09-19 04:03 | disposition left against medical advice (07) ==
LOC: ED 01:43
DX: M79.605 Pain in left leg (principal); Z53.21 Procedure and treatment not carried out due to patient leaving prior to being seen by health care provider

== ENCOUNTER 2018-09-19 18:23 | Emergency (ER) | payer MEDICARE ==
[2018-09-19 18:37] VITALS: BP 106/51
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
--- NOTE | 2018-09-19 20:24 | XRay Report ---
PROCEDURE: XR KNEE 3V LT TECHNIQUE: Left knee radiographs, AP, lateral, and sunrise views. HISTORY: left anterior knee pain COMPARISONS: None FINDINGS: Fracture (s) and/or Dislocation(s): None Alignment: Normal Joint space(s): Normal Soft tissues: Normal Bone mineralization: Normal Foreign bodies: None IMPRESSION: Normal Examination This document is electronically signed by Slava Archuleta MD., September 19 2018 08:22:31 PM ET
== END 2018-09-19 22:41 | disposition left against medical advice (07) ==
LOC: ED 18:23
DX: M25.562 Pain in left knee (principal); Z53.21 Procedure and treatment not carried out due to patient leaving prior to being seen by health care provider

== ENCOUNTER 2018-09-24 14:08 | Emergency (ER) | payer MEDICARE ==
[2018-09-24 14:46] VITALS: BP 117/78
--- NOTE | 2018-09-24 14:47 | Emergency Department Report ---
Chief Complaint: Eye Problems Stated Complaint: RT EYE PAIN Time Seen by Provider: 09/24/18 14:43 - HPI History of Present Illness: Pt presents with right eye pain and edema of the eyelid that began this morning no drainage from the eye, no eyelash matting pt has had in the past did not get anything in the eye does not wear contacts no fever no vision problems MSE screening note: Focused history and physical exam performed. ED Disposition for MSE Condition: Stable
--- NOTE | 2018-09-24 15:09 | Emergency Department Report ---
ED Eye Problem HPI - General Chief complaint: Eye Problems Stated complaint: RT EYE PAIN Time Seen by Provider: 09/24/18 14:43 Source: patient Mode of arrival: Ambulatory Limitations: No Limitations - History of Present Illness Initial comments: Pt is a 43 yo female who presents with right eye pain and edema of the eyelid that began this morning. The patient denies any drainage from the eye or eyelash matting. Pt states she has had in the past and was given abx ointment. She denies getting anything in the eye. Patient does not wear contacts. Patient denies any fever or vision problems. - Related Data Previous Rx's Medication Instructions Recorded Last Taken Type Efinaconazole [Jublia] 8 ml TP DAILY #1 gui.w.appl 03/08/17 Unknown Rx Butalb/Acetamin/Caff 50-325-40 1 tab PO Q6HR PRN #12 tab 08/29/17 Unknown Rx [Fioricet] Ondansetron [Zofran ODT TAB] 4 mg PO Q8HR PRN #12 tab.rapdis 08/29/17 Unknown Rx Ibuprofen [Motrin 800 MG tab] 800 mg PO Q8HR PRN #14 tablet 09/08/17 Unknown Rx Naproxen [Naprosyn TAB] 500 mg PO BID PRN #20 tablet 10/05/17 Unknown Rx Acetaminophen [Acetaminophen TAB] 500 mg PO Q6HR PRN #15 tablet 10/18/17 Unknown Rx Bismuth Subsalicylate 10 ml PO Q6H PRN #1 oral.susp 10/18/17 Unknown Rx [Pepto-Bismol] Famotidine [Pepcid] 20 mg PO BID PRN #30 tablet 10/18/17 Unknown Rx Ondansetron [Zofran ODT TAB] 4 mg PO Q8HR PRN #10 tab.rapdis 10/18/17 Unknown Rx Sulfamethoxazole/Trimethoprim 1 each PO BID #6 tablet 10/18/17 Unknown Rx [Bactrim DS TAB] Acetaminophen [Tylenol Arthritis] 650 mg PO Q6HR PRN #30 tablet.er 11/05/17 Unknown Rx Albuterol Sulfate [Proair 90 mcg IH Q4HR PRN #2 aer.pow.ba 11/05/17 Unknown Rx Respiclick] Ibuprofen [Motrin 600 MG tab] 600 mg PO Q8H PRN #30 tablet 11/05/17 Unknown Rx Ibuprofen [Motrin 800 MG tab] 800 mg PO Q8HR PRN #15 tablet 12/25/17 Unknown Rx Ibuprofen [Motrin 600 MG tab] 600 mg PO Q8H PRN #20 tablet 04/04/18 Unknown Rx Permethrin [Elimite] 60 gm TP ONCE #1 cream..g. 09/17/18 Unknown Rx hydrOXYzine HCL [Atarax] 25 mg PO Q6HR PRN #20 tablet 09/17/18 Unknown Rx Erythromycin [Erythromycin Ophth 0.5 inch .ROUTE QID 7 Days #1 tube 09/24/18 Unknown Rx Oint] Allergies Allergy/AdvReac Type Severity Reaction Status Date / Time codeine AdvReac Intermediate Vomiting Verified 09/24/18 14:12 ED Review of Systems ROS: Stated complaint: RT EYE PAIN Other details as noted in HPI Comment: All other systems reviewed and negative ED Past Medical Hx - Past Medical History Hx Psychiatric Treatment: Yes (PTSD; BIPOLAR; DEPRESSION) Hx Asthma: Yes Additional medical history: Chronic pain, hx of ovarian cancer. - Surgical History Hx Appendectomy: Yes Additional Surgical History: RIGHT KNEE SURGERY. "STRETCHED ESOPHAGUS". RIGHT OVARY REMOVED - Social History Smoking Status: Never Smoker Substance Use Type: None - Medications Home Medications: Home Medications Medication Instructions Recorded Confirmed Last Taken Type Efinaconazole [Jublia] 8 ml TP DAILY #1 gui.w.appl 03/08/17 Unknown Rx Butalb/Acetamin/Caff 50-325-40 1 tab PO Q6HR PRN #12 tab 08/29/17 Unknown Rx [Fioricet] Ondansetron [Zofran ODT TAB] 4 mg PO Q8HR PRN #12 tab.rapdis 08/29/17 Unknown Rx Ibuprofen [Motrin 800 MG tab] 800 mg PO Q8HR PRN #14 tablet 09/08/17 Unknown Rx Naproxen [Naprosyn TAB] 500 mg PO BID PRN #20 tablet 10/05/17 Unknown Rx Acetaminophen [Acetaminophen TAB] 500 mg PO Q6HR PRN #15 tablet 10/18/17 Unknown Rx Bismuth Subsalicylate 10 ml PO Q6H PRN #1 oral.susp 10/18/17 Unknown Rx [Pepto-Bismol] Famotidine [Pepcid] 20 mg PO BID PRN #30 tablet 10/18/17 Unknown Rx Ondansetron [Zofran ODT TAB] 4 mg PO Q8HR PRN #10 tab.rapdis 10/18/17 Unknown Rx Sulfamethoxazole/Trimethoprim 1 each PO BID #6 tablet 10/18/17 Unknown Rx [Bactrim DS TAB] Acetaminophen [Tylenol Arthritis] 650 mg PO Q6HR PRN #30 tablet.er 11/05/17 Unknown Rx Albuterol Sulfate [Proair 90 mcg IH Q4HR PRN #2 aer.pow.ba 11/05/17 Unknown Rx Respiclick] Ibuprofen [Motrin 600 MG tab] 600 mg PO Q8H PRN #30 tablet 11/05/17 Unknown Rx Ibuprofen [Motrin 800 MG tab] 800 mg PO Q8HR PRN #15 tablet 12/25/17 Unknown Rx Ibuprofen [Motrin 600 MG tab] 600 mg PO Q8H PRN #20 tablet 04/04/18 Unknown Rx Permethrin [Elimite] 60 gm TP ONCE #1 cream..g. 09/17/18 Unknown Rx hydrOXYzine HCL [Atarax] 25 mg PO Q6HR PRN #20 tablet 09/17/18 Unknown Rx Erythromycin [Erythromycin Ophth 0.5 inch .ROUTE QID 7 Days #1 tube 09/24/18 Unknown Rx Oint] ED Physical Exam - General Limitations: No Limitations General appearance: alert, in no apparent distress - Head Head exam: Present: atraumatic, normocephalic - Eye Eye exam: Present: PERRL, EOMI, other (small amount of edema to the right upper eyelid, small amount of erythema to the right upper eyelid, small amount of crusting surrounding the eyelashes). Absent: scleral icterus, conjunctival injection, nystagmus, periorbital swelling, periorbital tenderness - Neurological Exam Neurological exam: Present: alert, oriented X3 - Psychiatric Psychiatric exam: Present: normal affect, normal mood - Skin Skin exam: Present: warm, dry, intact ED Course Vital Signs 09/24/18 14:44 Temperature 98.2 F Pulse Rate 69 Respiratory 18 Rate Blood Pressure 117/78 O2 Sat by Pulse 98 Oximetry ED Medical Decision Making - Lab Data Vital Signs 09/24/18 14:44 Temperature 98.2 F Pulse Rate 69 Respiratory 18 Rate Blood Pressure 117/78 O2 Sat by Pulse 98 Oximetry - Medical Decision Making Pt is a 43 yo female who presents with right eye pain and edema of the eyelid that began this morning. The patient denies any drainage from the eye or eyelas h matting. Pt states she has had in the past and was given abx ointment. She denies getting anything in the eye. Patient does not wear contacts. Patient denies any fever or vision problems. VSS. Pt examination consistent with blepharitis. Will give pt antibiotic ointment. discussed lid hygiene and using non tear baby shampoo to wash the lashes and eyelid. Advised pt to see her PCP in the next 2-3 days. Discussed return to the emergency room for any new or worsening symptoms. - Differential Diagnosis conjunctivitis, blepharitis, chalazion, hordeolum Critical care attestation.: If time is entered above; I have spent that time in minutes in the direct care of this critically ill patient, excluding procedure time. ED Disposition Clinical Impression: Blepharitis Qualifiers: Blepharitis type: unspecified type Laterality: right Eyelid: upper Qualified Code(s): H01.001 - Unspecified blepharitis right upper eyelid Disposition: DC-01 TO HOME OR SELFCARE Is pt being admited?: No Does the pt Need Aspirin: No Condition: Stable Instructions: Blepharitis (ED) Additional Instructions: Please follow up with a primary care doctor in the next 2-3 days. Please practice good lid hygiene. May use baby shampoo and wash around the eyelids. May use a cool cloth to the eye. Use antibiotic ointment as prescribed. Return to the emergency room for any new or worsening symptoms. Prescriptions: Erythromycin [Erythromycin Ophth Oint] 0.5 inch .ROUTE QID 7 Days #1 tube Referrals: [facility] [Provider Group] - 2-3 Days Time of Disposition: 15:09 Print Language: SRI LANKAN
== END 2018-09-24 15:36 | disposition home or self-care (01) ==
LOC: ED 14:08
DX: H01.001 Unspecified blepharitis right upper eyelid (principal); J45.909 Unspecified asthma, uncomplicated; G89.29 Other chronic pain; Z88.6 Allergy status to analgesic agent
CPT/HCPCS: 99282

== ENCOUNTER 2018-09-28 17:22 | Emergency (ER) | payer MEDICARE ==
--- NOTE | 2018-09-28 17:31 | Emergency Department Report ---
Blank Doc - Documentation Documentation: This is a 43-year-old female that presents with left knee and ankle pain s/p f all. This initial assessment/diagnostic orders/clinical plan/treatment(s) is/are subject to change based on patient's health status, clinical progression and re- assessment by fellow clinical providers in the ED. Further treatment and workup at subsequent clinical providers discretion. Patient/guardians urged not to elope from the ED as their condition may be serious if not clinically assessed a nd managed. Initial orders include: 1- Patient sent to [facility] for further evaluation and treatment 2- xrays
--- NOTE | 2018-09-28 18:28 | XRay Report ---
PROCEDURE: XR KNEE 3V LT TECHNIQUE: Left knee 3 views HISTORY: pain s/p fall COMPARISONS: FINDINGS: No fracture identified. No dislocation seen. Joint spaces are within normal limits IMPRESSION: . This document is electronically signed by Porter Mcneal MD., September 28 2018 06:26:18 PM ET
--- NOTE | 2018-09-28 18:29 | XRay Report ---
PROCEDURE: XR ANKLE 3+V LT TECHNIQUE: Left ankle 3 views HISTORY: pain s/p fall COMPARISONS: FINDINGS: No fracture identified. No dislocation seen. Joint spaces are within normal limits IMPRESSION: Negative ankle series. This document is electronically signed by Porter Mcneal MD., September 28 2018 06:27:37 PM ET
--- NOTE | 2018-09-28 21:42 | Emergency Department Report ---
ED Lower Extremity HPI - General Chief Complaint: Extremity Injury, Lower Stated Complaint: KNEE/ANKLE PAIN Time Seen by Provider: 09/28/18 17:28 Source: patient Mode of arrival: Ambulatory Limitations: No Limitations - History of Present Illness Initial Comments: This is a 43-year-old female presents with left ankle and left knee pain status post fall. Patient states she was walking and inverted T in [place] today. She is now complaining of anterior left knee pain and medial ankle pain that is worse with weightbearing. Patient denies hitting her head, loss of consciousness, swelling, erythema, numbness or tingling, weakness, or paresthesias. MD Complaint: knee injury (left), ankle injury (left) -: This afternoon Injury: Knee: Left, Ankle: Left Type of Injury: unknown Place: street/outdoors Severity: moderate Severity scale (0 -10): 7 Improves With: nothing Worsens With: weight bearing Context: fall Associated Symptoms: able to partially bear weight, ambulatory Treatments Prior to Arrival: NSAIDS - Related Data Previous Rx's Medication Instructions Recorded Last Taken Type Efinaconazole [Jublia] 8 ml TP DAILY #1 gui.w.appl 03/08/17 Unknown Rx Butalb/Acetamin/Caff 50-325-40 1 tab PO Q6HR PRN #12 tab 08/29/17 Unknown Rx [Fioricet] Ondansetron [Zofran ODT TAB] 4 mg PO Q8HR PRN #12 tab.rapdis 08/29/17 Unknown Rx Ibuprofen [Motrin 800 MG tab] 800 mg PO Q8HR PRN #14 tablet 09/08/17 Unknown Rx Naproxen [Naprosyn TAB] 500 mg PO BID PRN #20 tablet 10/05/17 Unknown Rx Acetaminophen [Acetaminophen TAB] 500 mg PO Q6HR PRN #15 tablet 10/18/17 Unknown Rx Bismuth Subsalicylate 10 ml PO Q6H PRN #1 oral.susp 10/18/17 Unknown Rx [Pepto-Bismol] Famotidine [Pepcid] 20 mg PO BID PRN #30 tablet 10/18/17 Unknown Rx Ondansetron [Zofran ODT TAB] 4 mg PO Q8HR PRN #10 tab.rapdis 10/18/17 Unknown Rx Sulfamethoxazole/Trimethoprim 1 each PO BID #6 tablet 10/18/17 Unknown Rx [Bactrim DS TAB] Acetaminophen [Tylenol Arthritis] 650 mg PO Q6HR PRN #30 tablet.er 11/05/17 Unknown Rx Albuterol Sulfate [Proair 90 mcg IH Q4HR PRN #2 aer.pow.ba 11/05/17 Unknown Rx Respiclick] Ibuprofen [Motrin 800 MG tab] 800 mg PO Q8HR PRN #15 tablet 12/25/17 Unknown Rx Ibuprofen [Motrin 600 MG tab] 600 mg PO Q8H PRN #20 tablet 04/04/18 Unknown Rx Permethrin [Elimite] 60 gm TP ONCE #1 cream..g. 09/17/18 Unknown Rx hydrOXYzine HCL [Atarax] 25 mg PO Q6HR PRN #20 tablet 09/17/18 Unknown Rx Erythromycin [Erythromycin Ophth 0.5 inch .ROUTE QID 7 Days #1 tube 09/24/18 Unknown Rx Oint] Ibuprofen [Motrin 600 MG tab] 600 mg PO Q8H PRN #20 tablet 09/28/18 Unknown Rx Allergies Allergy/AdvReac Type Severity Reaction Status Date / Time codeine AdvReac Intermediate Vomiting Verified 09/28/18 17:26 ED Review of Systems ROS: Stated complaint: KNEE/ANKLE PAIN Other details as noted in HPI Constitutional: denies: chills, fever Respiratory: denies: cough, shortness of breath, wheezing Cardiovascular: denies: chest pain, palpitations Gastrointestinal: denies: abdominal pain, nausea, diarrhea Musculoskeletal: arthralgia (left knee and left ankle pain). denies: back pain, joint swelling Skin: denies: rash, lesions Neurological: denies: headache, weakness, paresthesias Psychiatric: denies: anxiety, depression ED Past Medical Hx - Past Medical History Previous Medical History?: Yes Hx Psychiatric Treatment: Yes (PTSD; BIPOLAR; DEPRESSION) Hx Asthma: Yes Additional medical history: Chronic pain, hx of ovarian cancer. - Surgical History Past Surgical History?: Yes Hx Appendectomy: Yes Additional Surgical History: RIGHT KNEE SURGERY. "STRETCHED ESOPHAGUS". RIGHT OVARY REMOVED - Social History Smoking Status: Never Smoker Substance Use Type: None - Medications Home Medications: Home Medications Medication Instructions Recorded Confirmed Last Taken Type Efinaconazole [Jublia] 8 ml TP DAILY #1 gui.w.appl 03/08/17 Unknown Rx Butalb/Acetamin/Caff 50-325-40 1 tab PO Q6HR PRN #12 tab 08/29/17 Unknown Rx [Fioricet] Ondansetron [Zofran ODT TAB] 4 mg PO Q8HR PRN #12 tab.rapdis 08/29/17 Unknown Rx Ibuprofen [Motrin 800 MG tab] 800 mg PO Q8HR PRN #14 tablet 09/08/17 Unknown Rx Naproxen [Naprosyn TAB] 500 mg PO BID PRN #20 tablet 10/05/17 Unknown Rx Acetaminophen [Acetaminophen TAB] 500 mg PO Q6HR PRN #15 tablet 10/18/17 Unknown Rx Bismuth Subsalicylate 10 ml PO Q6H PRN #1 oral.susp 10/18/17 Unknown Rx [Pepto-Bismol] Famotidine [Pepcid] 20 mg PO BID PRN #30 tablet 10/18/17 Unknown Rx Ondansetron [Zofran ODT TAB] 4 mg PO Q8HR PRN #10 tab.rapdis 10/18/17 Unknown Rx Sulfamethoxazole/Trimethoprim 1 each PO BID #6 tablet 10/18/17 Unknown Rx [Bactrim DS TAB] Acetaminophen [Tylenol Arthritis] 650 mg PO Q6HR PRN #30 tablet.er 11/05/17 Unknown Rx Albuterol Sulfate [Proair 90 mcg IH Q4HR PRN #2 aer.pow.ba 11/05/17 Unknown Rx Respiclick] Ibuprofen [Motrin 800 MG tab] 800 mg PO Q8HR PRN #15 tablet 12/25/17 Unknown Rx Ibuprofen [Motrin 600 MG tab] 600 mg PO Q8H PRN #20 tablet 04/04/18 Unknown Rx Permethrin [Elimite] 60 gm TP ONCE #1 cream..g. 09/17/18 Unknown Rx hydrOXYzine HCL [Atarax] 25 mg PO Q6HR PRN #20 tablet 09/17/18 Unknown Rx Erythromycin [Erythromycin Ophth 0.5 inch .ROUTE QID 7 Days #1 tube 09/24/18 Unknown Rx Oint] Ibuprofen [Motrin 600 MG tab] 600 mg PO Q8H PRN #20 tablet 09/28/18 Unknown Rx ED Physical Exam - General Limitations: No Limitations General appearance: alert, in no apparent distress, obese - Respiratory Respiratory exam: Present: normal lung sounds bilaterally. Absent: respiratory distress - Cardiovascular Cardiovascular Exam: Present: regular rate, normal rhythm. Absent: systolic murmur, diastolic murmur, rubs, gallop - GI/Abdominal GI/Abdominal exam: Present: soft, normal bowel sounds - Expanded Lower Extremity Exam Left Hip exam: Present: normal inspection, full ROM Upper Leg exam: Present: normal inspection, full ROM Knee exam: Present: full ROM (painful range of motion), tenderness (tenderness on palpation of the medial patella), full knee extension. Absent: swelling, a brasion, laceration, ecchymosis, deformity, crepidus, dislocation, erythema, effusion, pain w/ pronation/supination, posterior draw sign, pain/laxity with valgus, pain/laxity with varus Lower Leg exam: Present: normal inspection, full ROM Ankle exam: Present: full ROM (painful range of motion). Absent: tenderness, swelling, abrasion, laceration, ecchymosis, deformity, crepidus, dislocation, erythema, anterior draw sign Foot/Toe exam: Present: normal inspection, full ROM Neuro vascular tendon exam: Present: no vascular compromise Gait: Positive: observed and limited by pain - Neurological Exam Neurological exam: Present: alert, oriented X3, normal gait - Psychiatric Psychiatric exam: Present: normal affect, normal mood - Skin Skin exam: Present: warm, dry, intact, normal color. Absent: rash ED Course Vital Signs 09/28/18 17:27 Temperature 98.4 F Pulse Rate 74 Respiratory 16 Rate Blood Pressure 124/58 O2 Sat by Pulse 98 Oximetry ED Lower Extremity MDM - Radiology Data Radiology results: report reviewed PROCEDURE: XR KNEE 3V LT TECHNIQUE: Left knee 3 views HISTORY: pain s/p fall COMPARISONS: FINDINGS: No fracture identified. No dislocation seen. Joint spaces are within normal limits IMPRESSION: . PROCEDURE: XR ANKLE 3+V LT TECHNIQUE: Left ankle 3 views HISTORY: pain s/p fall COMPARISONS: FINDINGS: No fracture identified. No dislocation seen. Joint spaces are within normal li mits IMPRESSION: Negative ankle series. - Medical Decision Making Patient was examined by me. Vitals are normal and patient is in no acute distress. Obtained a x-rays of left knee and left ankle. X-rays dictated by radiologist with no acute findings. Patient informed of results. Muscle strain. Jerry wrap applied to left knee and left ankle. Start ibuprofen for pain. Given this therapy instructions. Plan discussed with patient to discharge home and treat outpatient. He agrees with ER plan. Patient discharged home in stable condition. Follow up with PCP in 2-3 days. Critical care attestation.: If time is entered above; I have spent that time in minutes in the direct care of this critically ill patient, excluding procedure time. ED Disposition Clinical Impression: Muscle strain Left knee pain Qualifiers: Chronicity: acute Qualified Code(s): M25.562 - Pain in left knee Left ankle pain Qualifiers: Chronicity: acute Qualified Code(s): M25.572 - Pain in left ankle and joints of left foot Disposition: TO HOME OR SELFCARE Is pt being admited?: No Does the pt Need Aspirin: No Condition: Stable Instructions: Muscle Strain (ED), Arthralgia (ED), Ankle Exercises (GEN), RICE Therapy (ED) Additional Instructions: Rest Use ice or heat on affected area for 20 minutes and off for 2 hours. Take pain medication as needed for pain. Follow up with Primary Care Provider in 2-3 days. Prescriptions: Ibuprofen [Motrin 600 MG tab] 600 mg PO Q8H PRN #20 tablet PRN Reason: Pain Referrals: WILLIE SPARKS MD [Primary Care Provider] - 3-5 Days THIAGO FERGUSON MD [Staff Physician] - 3-5 Days Time of Disposition: 22:02
[2018-09-28 22:22] VITALS: BP 115/77
== END 2018-09-28 22:21 | disposition home or self-care (01) ==
LOC: ED 17:22
DX: S86.912A Strain of unspecified muscle(s) and tendon(s) at lower leg level, left leg, initial encounter (principal); W18.30XA Fall on same level, unspecified, initial encounter; Y93.89 Activity, other specified; Y92.89 Other specified places as the place of occurrence of the external cause; Y99.8 Other external cause status

== ENCOUNTER 2018-10-07 16:32 | Emergency (ER) | payer MEDICARE ==
[2018-10-07 16:38] VITALS: BP 127/73
--- NOTE | 2018-10-07 18:52 | Emergency Department Report ---
ED Extremity Problem HPI - General Chief complaint: Extremity Injury, Lower Stated complaint: LEG PAIN Time Seen by Provider: 10/07/18 18:42 Source: patient Mode of arrival: Ambulatory Limitations: No Limitations - History of Present Illness Initial comments: 43-year-old female who has been to our emergency room for the last 8 times this month comes in now for right leg pain for a week. Patient also complains of a rash to her left leg today. Patient is ambulating with no limp. Patient has been referred to her primary care provider multiple times but has not followed up. Patient reports she's been taking ibuprofen and Aleve. Patient also admits that she does a lot of walking. MD Complaint: extremity pain -: week(s) (1) Location: right, lower extremity History of Same: Yes -: Yes myalgia Consistency: intermittent Improves with: rest Worsens with: walking Associated Symptoms: rash - Related Data Previous Rx's Medication Instructions Recorded Last Taken Type Efinaconazole [Jublia] 8 ml TP DAILY #1 gui.w.appl 03/08/17 Unknown Rx Butalb/Acetamin/Caff 50-325-40 1 tab PO Q6HR PRN #12 tab 08/29/17 Unknown Rx [Fioricet] Ondansetron [Zofran ODT TAB] 4 mg PO Q8HR PRN #12 tab.rapdis 08/29/17 Unknown Rx Ibuprofen [Motrin 800 MG tab] 800 mg PO Q8HR PRN #14 tablet 09/08/17 Unknown Rx Naproxen [Naprosyn TAB] 500 mg PO BID PRN #20 tablet 10/05/17 Unknown Rx Acetaminophen [Acetaminophen TAB] 500 mg PO Q6HR PRN #15 tablet 10/18/17 Unknown Rx Bismuth Subsalicylate 10 ml PO Q6H PRN #1 oral.susp 10/18/17 Unknown Rx [Pepto-Bismol] Famotidine [Pepcid] 20 mg PO BID PRN #30 tablet 10/18/17 Unknown Rx Ondansetron [Zofran ODT TAB] 4 mg PO Q8HR PRN #10 tab.rapdis 10/18/17 Unknown Rx Sulfamethoxazole/Trimethoprim 1 each PO BID #6 tablet 10/18/17 Unknown Rx [Bactrim DS TAB] Acetaminophen [Tylenol Arthritis] 650 mg PO Q6HR PRN #30 tablet.er 11/05/17 Unknown Rx Albuterol Sulfate [Proair 90 mcg IH Q4HR PRN #2 aer.pow.ba 11/05/17 Unknown Rx Respiclick] Ibuprofen [Motrin 800 MG tab] 800 mg PO Q8HR PRN #15 tablet 12/25/17 Unknown Rx Ibuprofen [Motrin 600 MG tab] 600 mg PO Q8H PRN #20 tablet 04/04/18 Unknown Rx Permethrin [Elimite] 60 gm TP ONCE #1 cream..g. 09/17/18 Unknown Rx hydrOXYzine HCL [Atarax] 25 mg PO Q6HR PRN #20 tablet 09/17/18 Unknown Rx Erythromycin [Erythromycin Ophth 0.5 inch .ROUTE QID 7 Days #1 tube 09/24/18 Unknown Rx Oint] Ibuprofen [Motrin 600 MG tab] 600 mg PO Q8H PRN #20 tablet 09/28/18 Unknown Rx Hydrocortisone 0.5% 1 applicatio TP TID #1 tube 10/07/18 Unknown Rx [Hydrocortisone 0.5% CREAM] Naproxen [Naprosyn TAB] 500 mg PO BID PRN #14 tablet 10/07/18 Unknown Rx Allergies Allergy/AdvReac Type Severity Reaction Status Date / Time codeine AdvReac Intermediate Vomiting Verified 10/07/18 16:33 ED Review of Systems ROS: Stated complaint: LEG PAIN Other details as noted in HPI Comment: All other systems reviewed and negative ED Past Medical Hx - Past Medical History Hx Psychiatric Treatment: Yes (PTSD; BIPOLAR; DEPRESSION) Hx Asthma: Yes Additional medical history: Chronic pain, hx of ovarian cancer. - Surgical History Hx Appendectomy: Yes Additional Surgical History: RIGHT KNEE SURGERY. "STRETCHED ESOPHAGUS". RIGHT OVARY REMOVED - Social History Smoking Status: Never Smoker Substance Use Type: None - Medications Home Medications: Home Medications Medication Instructions Recorded Confirmed Last Taken Type Efinaconazole [Jublia] 8 ml TP DAILY #1 gui.w.appl 03/08/17 Unknown Rx Butalb/Acetamin/Caff 50-325-40 1 tab PO Q6HR PRN #12 tab 08/29/17 Unknown Rx [Fioricet] Ondansetron [Zofran ODT TAB] 4 mg PO Q8HR PRN #12 tab.rapdis 08/29/17 Unknown R x Ibuprofen [Motrin 800 MG tab] 800 mg PO Q8HR PRN #14 tablet 09/08/17 Unknown Rx Naproxen [Naprosyn TAB] 500 mg PO BID PRN #20 tablet 10/05/17 Unknown Rx Acetaminophen [Acetaminophen TAB] 500 mg PO Q6HR PRN #15 tablet 10/18/17 Unknown Rx Bismuth Subsalicylate 10 ml PO Q6H PRN #1 oral.susp 10/18/17 Unknown Rx [Pepto-Bismol] Famotidine [Pepcid] 20 mg PO BID PRN #30 tablet 10/18/17 Unknown Rx Ondansetron [Zofran ODT TAB] 4 mg PO Q8HR PRN #10 tab.rapdis 10/18/17 Unknown Rx Sulfamethoxazole/Trimethoprim 1 each PO BID #6 tablet 10/18/17 Unknown Rx [Bactrim DS TAB] Acetaminophen [Tylenol Arthritis] 650 mg PO Q6HR PRN #30 tablet.er 11/05/17 Unknown Rx Albuterol Sulfate [Proair 90 mcg IH Q4HR PRN #2 aer.pow.ba 11/05/17 Unknown Rx Respiclick] Ibuprofen [Motrin 800 MG tab] 800 mg PO Q8HR PRN #15 tablet 12/25/17 Unknown Rx Ibuprofen [Motrin 600 MG tab] 600 mg PO Q8H PRN #20 tablet 04/04/18 Unknown Rx Permethrin [Elimite] 60 gm TP ONCE #1 cream..g. 09/17/18 Unknown Rx hydrOXYzine HCL [Atarax] 25 mg PO Q6HR PRN #20 tablet 09/17/18 Unknown Rx Erythromycin [Erythromycin Ophth 0.5 inch .ROUTE QID 7 Days #1 tube 09/24/18 Unknown Rx Oint] Ibuprofen [Motrin 600 MG tab] 600 mg PO Q8H PRN #20 tablet 09/28/18 Unknown Rx Hydrocortisone 0.5% 1 applicatio TP TID #1 tube 10/07/18 Unknown Rx [Hydrocortisone 0.5% CREAM] Naproxen [Naprosyn TAB] 500 mg PO BID PRN #14 tablet 10/07/18 Unknown Rx ED Physical Exam - General Limitations: No Limitations General appearance: alert, in no apparent distress - Head Head exam: Present: atraumatic, normocephalic - Eye Eye exam: Present: normal appearance - ENT ENT exam: Present: mucous membranes moist - Neurological Exam Neurological exam: Present: alert, oriented X3, normal gait - Psychiatric Psychiatric exam: Present: flat affect - Skin Skin exam: Present: warm, dry, intact, rash (prickly rash) ED Course Vital Signs 10/07/18 16:36 Temperature 97.8 F Pulse Rate 77 Respiratory 16 Rate Blood Pressure 127/73 O2 Sat by Pulse 98 Oximetry ED Medical Decision Making - Medical Decision Making Agent has been evaluated by this provider in fast track. Patient will be placed on naproxen to take twice a day and hydrocortisone cream. Stress the patient she needs to follow-up with the primary care provider discussed the patient that [facility] is just as close as the emergency room. Critical care attestation.: If time is entered above; I have spent that time in minutes in the direct care of this critically ill patient, excluding procedure time. ED Disposition Clinical Impression: Pain in right lower leg Disposition: DC-01 TO HOME OR SELFCARE Is pt being admited?: No Does the pt Need Aspirin: No Condition: Stable Instructions: Arthralgia (ED) Additional Instructions: Take medications as prescribed. Use cream to rash as prescribed. Follow up at [facility] for further evaluation for your chronic issues. Prescriptions: Hydrocortisone 0.5% [Hydrocortisone 0.5% CREAM] 1 applicatio TP TID #1 tube Naproxen [Naprosyn TAB] 500 mg PO BID PRN #14 tablet PRN Reason: Pain , Severe (7-10) Referrals: [facility] [Provider Group] - 3-5 Days
== END 2018-10-07 18:55 | disposition home or self-care (01) ==
LOC: ED 16:32
DX: M79.661 Pain in right lower leg (principal); J45.909 Unspecified asthma, uncomplicated; F43.10 Post-traumatic stress disorder, unspecified; F31.9 Bipolar disorder, unspecified; Z90.49 Acquired absence of other specified parts of digestive tract; Z79.899 Other long term (current) drug therapy; Z88.6 Allergy status to analgesic agent
CPT/HCPCS: 99282

== ENCOUNTER 2018-11-03 22:40 | Emergency (ER) | payer MEDICARE | END 2018-11-04 00:10 | disposition left against medical advice (07) | LOC: ED 22:40 | DX: M25.561 Pain in right knee (principal); Z53.21 Procedure and treatment not carried out due to patient leaving prior to being seen by health care provider ==

== ENCOUNTER 2021-09-29 21:08 | Emergency (ER) | payer MEDICARE, MEDICAID ==
--- NOTE | 2021-09-29 21:57 | XRay Report ---
RIGHT ANKLE 2 VIEW(S) INDICATION / CLINICAL INFORMATION: injury COMPARISON: None available. FINDINGS: BONES / JOINT(S): No acute fracture or subluxation. No significant arthritis. SOFT TISSUES: Soft tissue swelling about the right ankle joint. ADDITIONAL FINDINGS: None. Signer Name: Emeterio Bradshaw MD Signed: 09/29/2021 9:53 PM Workstation Name: [id number]
--- NOTE | 2021-09-29 21:58 | XRay Report ---
RIGHT KNEE 4 VIEW(S) INDICATION / CLINICAL INFORMATION: injury COMPARISON: None available. FINDINGS: BONES / JOINT(S): No acute fracture or subluxation. Mild DJD. SOFT TISSUES: No significant abnormality. ADDITIONAL FINDINGS: None. Signer Name: Emeterio Bradshaw MD Signed: 09/29/2021 9:54 PM Workstation Name: [id number]
[2021-09-30] MEDS ORDERED: traMADol 50 MG TAB PO ONE (02:36)
--- NOTE | 2021-09-30 02:41 | Emergency Department Report ---
ED Lower Extremity HPI - General Chief Complaint: Extremity Injury, Lower Stated Complaint: FELL DOWN ON R KNEE Time Seen by Provider: 09/30/21 01:39 Source: patient Mode of arrival: Wheelchair Limitations: No Limitations - History of Present Illness Initial Comments: Jose M is a 46-year-old female who presents for right anterior knee and right lateral ankle pain. States she slipped and landed on her leg. Hyperextending her knee. Incident was yesterday pain now advised as 4/10 aching and sore. There are no lacerations or abrasions or bleeding. Patient remains ambulatory. Patient arrived to ED tonight via POV and family member. Current pain is described as 5/10 aching and sharp. Patient denies other history patient denies other symptoms. MD Complaint: knee injury, ankle injury - Related Data Previous Rx's Medication Instructions Recorded Last Taken Type Efinaconazole [Jublia] 8 ml TP DAILY #1 gui.w.appl 03/08/17 Unknown Rx Butalb/Acetamin/Caff 50-325-40 1 tab PO Q6HR PRN #12 tab 08/29/17 Unknown Rx [Fioricet 50-325-40] Ondansetron [Zofran ODT TAB] 4 mg PO Q8HR PRN #12 tab.rapdis 08/29/17 Unknown Rx Ibuprofen [Motrin 800 MG tab] 800 mg PO Q8HR PRN #14 tablet 09/08/17 Unknown Rx Naproxen [Naprosyn TAB] 500 mg PO BID PRN #20 tablet 10/05/17 Unknown Rx Acetaminophen [Acetaminophen TAB] 500 mg PO Q6HR PRN #15 tablet 10/18/17 Unknown Rx Bismuth Subsalicylate 10 ml PO Q6H PRN #1 oral.susp 10/18/17 Unknown Rx [Pepto-Bismol] Famotidine [Pepcid] 20 mg PO BID PRN #30 tablet 10/18/17 Unknown Rx Ondansetron [Zofran ODT TAB] 4 mg PO Q8HR PRN #10 tab.rapdis 10/18/17 Unknown Rx Sulfamethoxazole/Trimethoprim 1 each PO BID #6 tablet 10/18/17 Unknown Rx [Bactrim DS TAB] Acetaminophen [Tylenol Arthritis] 650 mg PO Q6HR PRN #30 tablet.er 11/05/17 Unknown Rx Albuterol Sulfate [Proair 90 mcg IH Q4HR PRN #2 aer.pow.ba 11/05/17 Unknown Rx Respiclick] Ibuprofen [Motrin] 600 mg PO Q8H PRN #30 tablet 11/28/17 Unknown Rx Ibuprofen [Motrin 800 MG tab] 800 mg PO Q8HR PRN #15 tablet 12/25/17 Unknown Rx Ibuprofen [Motrin 800 MG tab] 800 mg PO Q8HR PRN #15 tablet 01/06/18 Unknown Rx Ondansetron [Zofran ODT TAB] 8 mg PO Q8HR PRN #15 tab.rapdis 01/06/18 Unknown Rx Ibuprofen [Motrin 600 MG tab] 600 mg PO Q8H PRN #20 tablet 04/04/18 Unknown Rx Permethrin [Elimite] 60 gm TP ONCE #1 cream..g. 09/17/18 Unknown Rx hydrOXYzine HCL [Atarax] 25 mg PO Q6HR PRN #20 tablet 09/17/18 Unknown Rx Erythromycin [Erythromycin Ophth 0.5 inch .ROUTE QID 7 Days #1 tube 09/24/18 Unknown Rx Oint] Ibuprofen [Motrin 600 MG tab] 600 mg PO Q8H PRN #20 tablet 09/28/18 Unknown Rx Hydrocortisone 0.5% 1 applicatio TP TID #1 tube 10/07/18 Unknown Rx [Hydrocortisone 0.5% CREAM] Naproxen [Naprosyn TAB] 500 mg PO BID PRN #14 tablet 10/07/18 Unknown Rx Cyclobenzaprine [Flexeril] 10 mg PO TID PRN #30 tablet 10/19/18 Unknown Rx Menthol/Camphor [[place] 1 applicatio TP QID PRN #1 tube 10/19/18 Unknown Rx Ointment] Naproxen [Naprosyn] 500 mg PO BID PRN #30 tablet 10/19/18 Unknown Rx Menthol/Camphor [[place] 1 applic TP Q6H PRN #30 tab 09/30/21 Unknown Rx Ointment] Naproxen [Naprosyn] 500 mg PO BID PRN #30 tab 09/30/21 Unknown Rx Allergies Allergy/AdvReac Type Severity Reaction Status Date / Time codeine AdvReac Intermediate Vomiting Verified 09/08/21 02:40 ED Review of Systems ROS: Stated complaint: FELL DOWN ON R KNEE Other details as noted in HPI Constitutional: denies: chills, fever Eyes: denies: eye pain, eye discharge, vision change ENT: denies: ear pain, throat pain Respiratory: denies: cough, shortness of breath, wheezing Cardiovascular: denies: chest pain, palpitations Endocrine: no symptoms reported Gastrointestinal: denies: abdominal pain, nausea, diarrhea Genitourinary: denies: urgency, dysuria, discharge Musculoskeletal: denies: back pain, joint swelling, arthralgia Skin: denies: rash, lesions Neurological: denies: headache, weakness, paresthesias Psychiatric: denies: anxiety, depression ED Past Medical Hx - Past Medical History Previous Medical History?: Yes Hx Psychiatric Treatment: Yes (PTSD; BIPOLAR; DEPRESSION) Hx Asthma: Yes Additional medical history: Chronic pain, hx of ovarian cancer. - Surgical History Past Surgical History?: Yes Hx Appendectomy: Yes Additional Surgical History: knee - Social History Smoking Status: Never Smoker Substance Use Type: None - Medications Home Medications: Home Medications Medication Instructions Recorded Confirmed Last Taken Type Efinaconazole [Jublia] 8 ml TP DAILY #1 gui.w.appl 03/08/17 Unknown Rx Butalb/Acetamin/Caff 50-325-40 1 tab PO Q6HR PRN #12 tab 08/29/17 Unknown Rx [Fioricet 50-325-40] Ondansetron [Zofran ODT TAB] 4 mg PO Q8HR PRN #12 tab.rapdis 08/29/17 Unknown Rx Ibuprofen [Motrin 800 MG tab] 800 mg PO Q8HR PRN #14 tablet 09/08/17 Unknown Rx Naproxen [Naprosyn TAB] 500 mg PO BID PRN #20 tablet 10/05/17 Unknown Rx Acetaminophen [Acetaminophen TAB] 500 mg PO Q6HR PRN #15 tablet 10/18/17 Unknown Rx Bismuth Subsalicylate 10 ml PO Q6H PRN #1 oral.susp 10/18/17 Unknown Rx [Pepto-Bismol] Famotidine [Pepcid] 20 mg PO BID PRN #30 tablet 10/18/17 Unknown Rx Ondansetron [Zofran ODT TAB] 4 mg PO Q8HR PRN #10 tab.rapdis 10/18/17 Unknown Rx Sulfamethoxazole/Trimethoprim 1 each PO BID #6 tablet 10/18/17 Unknown Rx [Bactrim DS TAB] Acetaminophen [Tylenol Arthritis] 650 mg PO Q6HR PRN #30 tablet.er 11/05/17 Unknown Rx Albuterol Sulfate [Proair 90 mcg IH Q4HR PRN #2 aer.pow.ba 11/05/17 Unknown Rx Respiclick] Ibuprofen [Motrin] 600 mg PO Q8H PRN #30 tablet 11/28/17 Unknown Rx Ibuprofen [Motrin 800 MG tab] 800 mg PO Q8HR PRN #15 tablet 12/25/17 Unknown Rx Ibuprofen [Motrin 800 MG tab] 800 mg PO Q8HR PRN #15 tablet 01/06/18 Unknown Rx Ondansetron [Zofran ODT TAB] 8 mg PO Q8HR PRN #15 tab.rapdis 01/06/18 Unknown Rx Ibuprofen [Motrin 600 MG tab] 600 mg PO Q8H PRN #20 tablet 04/04/18 Unknown Rx Permethrin [Elimite] 60 gm TP ONCE #1 cream..g. 09/17/18 Unknown Rx hydrOXYzine HCL [Atarax] 25 mg PO Q6HR PRN #20 tablet 09/17/18 Unknown Rx Erythromycin [Erythromycin Ophth 0.5 inch .ROUTE QID 7 Days #1 tube 09/24/18 Unknown Rx Oint] Ibuprofen [Motrin 600 MG tab] 600 mg PO Q8H PRN #20 tablet 09/28/18 Unknown Rx Hydrocortisone 0.5% 1 applicatio TP TID #1 tube 10/07/18 Unknown Rx [Hydrocortisone 0.5% CREAM] Naproxen [Naprosyn TAB] 500 mg PO BID PRN #14 tablet 10/07/18 Unknown Rx Cyclobenzaprine [Flexeril] 10 mg PO TID PRN #30 tablet 10/19/18 Unknown Rx Menthol/Camphor [[place] 1 applicatio TP QID PRN #1 tube 10/19/18 Unknown Rx Ointment] Naproxen [Naprosyn] 500 mg PO BID PRN #30 tablet 10/19/18 Unknown Rx Menthol/Camphor [[place] 1 applic TP Q6H PRN #30 tab 09/30/21 Unknown Rx Ointment] Naproxen [Naprosyn] 500 mg PO BID PRN #30 tab 09/30/21 Unknown Rx ED Physical Exam - General Limitations: No Limitations General appearance: alert, in no apparent distress - Head Head exam: Present: atraumatic, normocephalic - Eye Eye exam: Present: normal appearance, PERRL, EOMI Pupils: Present: normal accommodation - ENT ENT exam: Present: mucous membranes moist - Neck Neck exam: Present: normal inspection, full ROM. Absent: tenderness, meningismus, lymphadenopathy, thyromegaly - Respiratory Respiratory exam: Present: normal lung sounds bilaterally. Absent: respiratory distress, wheezes, stridor, chest wall tenderness - Cardiovascular Cardiovascular Exam: Present: regular rate, normal rhythm, normal heart sounds. Absent: systolic murmur, diastolic murmur, rubs, gallop - GI/Abdominal GI/Abdominal exam: Present: soft, normal bowel sounds. Absent: distended, tenderness, guarding, rebound, rigid, bruit, hernia - Rectal Rectal exam: Present: deferred - Extremities Exam Extremities exam: Present: full ROM, normal capillary refill - Expanded Lower Extremity Exam Right Knee exam: Present: full ROM, tenderness, pain w/ pronation/supination, posterior draw sign, full knee extension. Absent: swelling, abrasion, laceration, ecchymosis, deformity, crepidus, dislocation, erythema, effusion, pain/laxity with valgus, pain/laxity with varus Lower Leg exam: Present: full ROM. Absent: tenderness Ankle exam: Present: full ROM, tenderness, swelling (Right lateral), ecchymosis. Absent: abrasion, laceration, deformity, crepidus, dislocation, erythema, anterior draw sign Foot/Toe exam: Present: normal inspection, full ROM, erythema. Absent: tenderness, swelling, abrasion, laceration, ecchymosis, deformity, dislocation, calcaneal tenderness, tenderness at base of 5th metatarsal, nail avulsion Neuro vascular tendon exam: Absent: pulse deficit, motor deficit, sensory deficit, tendon deficit Gait: Positive: observed and limited by pain - Back Exam Back exam: Present: full ROM. Absent: CVA tenderness (R), CVA tenderness (L), vertebral tenderness - Neurological Exam Neurological exam: Present: alert, oriented X3, CN II-XII intact, normal gait, motor sensory deficit, reflexes normal - Psychiatric Psychiatric exam: Present: normal affect, normal mood, other - Skin Skin exam: Present: warm, dry, intact, normal color. Absent: rash, diaphoretic, erythema, urticaria, petechiae, ecchymosis ED Course Vital Signs 09/29/21 21:11 Temperature 97.6 F Pulse Rate 72 Respiratory 16 Rate Blood Pressure 108/61 [Left] O2 Sat by Pulse 97 Oximetry ED Lower Extremity MDM - Radiology Data Radiology results: report reviewed, image reviewed RIGHT KNEE 4 VIEW(S) INDICATION / CLINICAL INFORMATION: injury COMPARISON: None available. FINDINGS: BONES / JOINT(S): No acute fracture or subluxation. Mild DJD. SOFT TISSUES: No significant abnormality. ADDITIONAL FINDINGS: None. Signer Name: Emeterio Mayer MD Signed: 09/29/2021 9:54 PM Workstation Name: [id number] Transcribed By: SB Dictated By: EMETERIO MAYER MD Electronically Authenticated By: EMETERIO MAYER MD Signed Date/Time: 09/29/212153 DD/ 52 TD/TT: - Medical Decision Making No subluxation no dislocation no soft tissue abnormalities for knee and ankle x- ray plan Jerry wrap to knee, offer crutches, NSAIDs as needed pain. Patient verbalized agreement understanding with discharge plan. Patient DC'd home in stable condition at this time. Critical care attestation.: If time is entered above; I have spent that time in minutes in the direct care of this critically ill patient, excluding procedure time. ED Disposition Clinical Impression: Strain of knee and leg, left Qualifiers: Encounter type: initial encounter Qualified Code(s): S86.912A - Strain of unspecified muscle(s) and tendon(s) at lower leg level, left leg, initial encounter Disposition: HOME / SELF CARE / HOMELESS Is pt being admited?: No Does the pt Need Aspirin: No Condition: Stable Instructions: Knee Sprain, Adult, Ankle Sprain Additional Instructions: Take medication as prescribed, RICE therapy as directed crutches and Jerry wrap as directed. Follow-up with your doctor in 2 to 3 days. Return to emergency department if symptoms worsen. Prescriptions: Naproxen [Naprosyn] 500 mg PO BID PRN #30 tab PRN Reason: pain Menthol/Camphor [[place] Ointment] 1 applic TP Q6H PRN #30 tab PRN Reason: pain Referrals: SONY ANTUNEZ MD [Staff Physician] - 3-5 Days Forms: Work/School Release Form(ED) Time of Disposition: 02:55
[2021-09-30 04:31] VITALS: BP 116/74
== END 2021-09-30 04:31 | disposition home or self-care (01) ==
LOC: ED 21:08
DX: S86.912A Strain of unspecified muscle(s) and tendon(s) at lower leg level, left leg, initial encounter (principal); X58.XXXA Exposure to other specified factors, initial encounter; Y93.89 Activity, other specified; Y92.89 Other specified places as the place of occurrence of the external cause; Y99.8 Other external cause status
CPT/HCPCS: 99284